=== PATIENT | female | born 1945 | race Caucasian/White ===

== ENCOUNTER → 2017-08-03 12:09 | Outpatient (CLI) | payer MEDICARE, OTHER, SELFPAY ==
[2017-08-03 14:37] LABS: ALB/GLOB Ratio 1.1 RATIO (0.9-2.4); AST(SGOT) 25 U/L (15-37); Alanine Aminotransfer ALT/SGPT 21 U/L (13-56); Albumin, Serum 3.8 g/dL (3.2-5.0); Alkaline Phosphatase 93 U/L (45-117); Anion Gap 8 (5-15); BUN 14 mg/dL (7-18); BUN/Creat Ratio 21.9 RATIO (10-20); Calcium,Total 8.9 mg/dL (8.5-10.1); Chloride 100 mmol/L (98-107); Creatinine, Serum 0.64 mg/dL (0.55-1.02); EST Glomerular Filtration Rate 97 mL/min (>60); Est Glom Filt Rate - Afr Amer 117 mL/min (>60); Globulin 3.5 g/dL (2.2-4.2); Glucose 84 mg/dL (74-106); Potassium 4.3 mmol/L (3.5-5.1); Protein, Total 7.3 g/dL (6.4-8.2); Sodium Level 137 mmol/L (136-145)
[2017-08-03 16:43] LABS: Absolute Neutrophil Count 3.3 X10^3/uL (2.0-7.7); Basophil# 0.09 X10^3/uL; Basophil% 1.8 % (0-1); Eosinophil# 0.16 X10^3/uL; Eosinophils% 3.2 % (0-5); Hematocrit 40.5 % (37-47); Mean Corp Hgb Conc 32.1 g/gl (32-36); Mean Corpuscular Hgb 31.4 pg (27.0-32.0); Mean Corpuscular Volume 97.8 fL (81-99); Mean Platelet Vol. 9.9 fl (6.2-12.0); Monocyte# 0.37 X10^3/uL; Monocyte% 7.4 % (0-10); Neutrophil # 3.27 X10^3/uL (2.7-7.7); Neutrophil % 65.6 % (47-70); Platelet Count 196 K/mm3 (150-450); RBC Distribution Width CV 13.9 % (11.6-14.6); RBC Distribution Width SD 49.9 fl (35.1-43.9); Red Blood Count 4.14 M/mm3 (4.2-5.4)
[2017-08-03 16:45] LABS: POSITIVE COUNT NO; POSITIVE DIFFERENTIAL NO; POSITIVE MORPHOLOGY NO
== END ==
PROVIDERS: Family Provider Family Medicine; PCP Family Medicine; Visit Provider Internal Medicine Rheumatology
DX: M06.4 Inflammatory polyarthropathy (principal); Z79.899 Other long term (current) drug therapy; M34.9 Systemic sclerosis, unspecified; M79.7 Fibromyalgia; K21.0 Gastro-esophageal reflux disease with esophagitis; I10 Essential (primary) hypertension; C50.911 Malignant neoplasm of unspecified site of right female breast
CPT/HCPCS: 36415; 80053; 85025

== ENCOUNTER → 2017-09-07 09:11 | Outpatient (CLI) | payer MEDICARE, OTHER, SELFPAY ==
--- NOTE | 2017-09-07 09:15 | RAD_ITS ---
STUDY: X-RAY CHEST REASON FOR EXAM: Female, 72 years old. Two-month history of cough. History of breast cancer and right mastectomy. TECHNIQUE: PA and lateral views of the chest. COMPARISON: None. FINDINGS: Prior right mastectomy. Hyperinflation. Scattered calcified granulomas. There is no demonstrated pleural abnormality. Normal size heart. Normal mediastinum and paul. Normal visualized pulmonary arteries. There is atherosclerotic tortuosity of the aortic arch and descending thoracic aorta. There are diffuse degenerative changes of the visualized thoracic spine. Scoliosis of the thoracolumbar junction. Normal visualized ribs, clavicles, and shoulders. Prior cholecystectomy. RAD/Chest PA and Lateral IMPRESSION: Hyperinflation. No acute abnormality is seen. Electronically Signed: Rick Fay MD at 14:02 EDT Tel [phone], Service support ,
== END ==
PROVIDERS: Family Provider Family Medicine; PCP Family Medicine; Visit Provider Family Medicine
DX: R05 Cough (principal)
CPT/HCPCS: 71046

== ENCOUNTER → 2017-10-20 12:59 | Outpatient (CLI) | payer MEDICARE, OTHER, SELFPAY ==
[2017-10-20 14:14] LABS: Absolute Neutrophil Count 3.9 X10^3/uL (2.0-7.7); Basophil# 0.13 X10^3/uL; Basophil% 2.2 % (0-1); Eosinophil# 0.13 X10^3/uL; Eosinophils% 2.2 % (0-5); Hematocrit 39.8 % (37-47); Lymphocyte % 21.9 % (19-41); Mean Corp Hgb Conc 32.7 g/gl (32-36); Mean Corpuscular Hgb 31.6 pg (27.0-32.0); Mean Corpuscular Volume 96.8 fL (81-99); Mean Platelet Vol. 9.6 fl (6.2-12.0); Monocyte# 0.46 X10^3/uL; Monocyte% 7.8 % (0-10); Neutrophil # 3.91 X10^3/uL (2.7-7.7); Neutrophil % 65.9 % (47-70); Platelet Count 212 K/mm3 (150-450); RBC Distribution Width CV 13.1 % (11.6-14.6); RBC Distribution Width SD 45.1 fl (35.1-43.9); Red Blood Count 4.11 M/mm3 (4.2-5.4); White Blood Count 5.9 K/mm3 (4.4-11.0)
[2017-10-20 14:18] LABS: POSITIVE COUNT NO; POSITIVE DIFFERENTIAL NO; POSITIVE MORPHOLOGY NO
[2017-10-20 14:42] LABS: BUN 9 mg/dL (7-18); Creatinine, Serum 0.58 mg/dL (0.55-1.02); Glucose 88 mg/dL (74-106)
[2017-10-20 14:43] LABS: ALB/GLOB Ratio 1.2 RATIO (0.9-2.4); AST(SGOT) 25 U/L (15-37); Alanine Aminotransfer ALT/SGPT 23 U/L (13-56); Alkaline Phosphatase 93 U/L (45-117); Anion Gap 8 (5-15); BUN/Creat Ratio 15.7 RATIO (10-20); Chloride 104 mmol/L (98-107); Cholesterol 210 mg/dL (200); EST Glomerular Filtration Rate 109 mL/min (>60); Est Glom Filt Rate - Afr Amer 132 mL/min (>60); Globulin 3.4 g/dL (2.2-4.2); High Density Lipoprotein 68 mg/dL; Potassium 3.8 mmol/L (3.5-5.1); Protein, Total 7.4 g/dL (6.4-8.2); Sodium Level 140 mmol/L (136-145); Thyroid Stim Hormone (TSH) 0.56 uIU/mL (0.358-3.74); Triglycerides 114 mg/dL; Very Low Density Lipoprotein 23 mg/dL (5-40)
[2017-10-21 08:21] LABS: Vitamin D,25 Hydroxy 57.8 ng/mL (29.95-100.01)
== END ==
PROVIDERS: Family Provider Family Medicine; PCP Family Medicine; Visit Provider Family Medicine
DX: I10 Essential (primary) hypertension (principal); M81.0 Age-related osteoporosis without current pathological fracture; R53.83 Other fatigue
CPT/HCPCS: 36415; 80053; 80061; 82306; 84443; 85025

== ENCOUNTER → 2017-12-12 10:56 | Outpatient (CLI) | payer MEDICARE, OTHER, SELFPAY ==
--- NOTE | 2017-12-12 10:59 | CT_ITS ---
STUDY: CT CHEST WITHOUT CONTRAST REASON FOR EXAM: Female, 72 years old. Wheezing, COPD. Pulmonary arterial hypertension. Scleroderma. RADIATION DOSAGE (If Supplied By Facility): CTDIvol = ( 8.15 ) mGy, DLP = ( 268.38 ) mGycm TECHNIQUE: Transaxial imaging was performed without the administration of intravenous contrast material. : Sagittal 2-D MPR. Individualized dose optimization techniques were used for this CT. COMPARISON: X-ray chest 09/07/2017. FINDINGS: Supraclavicular: Thyroid nodules on the right, the largest measuring approximately 1.2 cm, low density, favoring goiter but incompletely characterized. Ultrasound thyroid is recommended. Body wall soft tissues: Right mastectomy. No acute process. Osseous structures: No acute process. Mild scoliosis. Mild thoracic spondylosis. Upper abdomen: Limited evaluation, no acute process. Mediastinum: Normal esophagus. No mass or lymphadenopathy. Cardiovascular: Normal heart size without effusion and with no visible coronary calcifications. There are calcifications of the aortic valve annulus. The ascending aorta is mildly ectatic 3.5 cm, nonaneurysmal. The central pulmonary arteries are nondilated, main pulmonary artery 2.5 cm. Lungs: There is mild scarring and reticulation at the lung bases bilaterally. There are no suspicious pulmonary lesions and there is no evidence of acute pneumonia or pulmonary edema. No significant features of emphysema. There is mild generalized hyperlucency that could reflect mild COPD or excellent inspiratory effort. Normal airways. CT/Chest without Contrast IMPRESSION: Mild chronic interstitial changes of the lungs predominating at the lung bases, mild interstitial scar with reticulation of the interstitium and subpleural reticulation. No mariola fibrosis or bronchiectasis. There is no evidence of hyperlucency or asymmetric inflation of lungs to suggest acute air trapping. There are no features of emphysema. Mild hyperinflation of the lungs may reflect excellent inspiratory effort or mild COPD. No other acute cardiopulmonary process is evident. Electronically Signed: Otoniel Nelson, at 13:55 EDT Tel , Service support ,
[2017-12-12 11:23] VITALS: PULSE 102; PULSE 82; PULSE 94; PULSE 96; PULSE 97; PULSE 98; O2SAT 94; O2SAT 95; O2SAT 96; O2SAT 97; O2SAT 98
--- NOTE | 2017-12-12 13:28 | WT_ITS ---
PSN 6 Minute Walk Test - 6 Minute Walk Test 6 Minute Walk Test: 6 Minute Walk Test PSN:6-Minute Walk Test Start: 12/12/17 11: 22 Freq: Status: Active Protocol: [id number] Document 12/12/17 11:23 SMB (Rec: 12/12/17 11:25 SMB [id number]) 6 Minute Walk Test Date Performed 12/12/17 Time Performed 11:10 Height 5 ft 10 in Weight: 137 lb Weight in Pounds 137.[address]: Johnny Granados Assistive device used: None Pre-test Oxygen Delivery Method Room Air Pulse Ox (%) 95 Pulse Rate (60-100 beats/min) 82 Dyspnea Russel Scale (0-10) 0 Exertion Russel Scale (6-20) 11 1st minute Oxygen Delivery Method Room Air Pulse Ox (%) 98 Pulse Rate (60-100 beats/min) 96 2nd minute Oxygen Delivery Method Room Air Pulse Ox (%) 97 Pulse Rate (60-100 beats/min) 102 H 3rd minute Oxygen Delivery Method Room Air Pulse Ox (%) 97 Pulse Rate (60-100 beats/min) 98 4th minute Oxygen Delivery Method Room Air Pulse Ox (%) 94 Pulse Rate (60-100 beats/min) 94 5th minute Oxygen Delivery Method Room Air Pulse Ox (%) 94 Pulse Rate (60-100 beats/min) 98 6th minute Oxygen Delivery Method Room Air Pulse Ox (%) 96 Pulse Rate (60-100 beats/min) 97 Post-test Oxygen Delivery Method Room Air Pulse Ox (%) 95 Pulse Rate (60-100 beats/min) 82 Dyspnea Russel Scale (0-10) 0 Exertion Russel Scale (6-20) 11 Full Laps Walked 16 Partial Lap, Number of Tiles Walked 11 Total Distance Walked (ft) 955 - Interpretation Interpretation: The patient ambulated 955 feet over the course of 6 minutes beginning on room air without assistive devices or breaks. Pretesting oxygen saturation was noted to be 95% on room air. With ambulation, the brunilda oxygen saturation was 94%. There was no significant exertional oxygen desaturation noted. - Recommendations Recommendations: There is no indication for the use of supplemental oxygen at this time.
== END ==
PROVIDERS: Family Provider Family Medicine; PCP Family Medicine; Visit Provider Internal Medicine Critical Care Medicine
DX: I27.20 Pulmonary hypertension, unspecified (principal); R06.02 Shortness of breath; M34.9 Systemic sclerosis, unspecified
CPT/HCPCS: 71250; 94618

== ENCOUNTER → 2017-12-22 10:02 | Outpatient (CLI) | payer MEDICARE, OTHER, SELFPAY ==
--- NOTE | 2017-12-22 13:47 | PFTCOMP ---
COMPLETE PULMONARY FUNCTION TEST INTERPRETATION Brief HPI: Patient is a 72 year old female, currently under the care of myself, who presents to [facility] for complete pulmonary function tests secondary to diagnosis of dyspnea. Respiratory therapist reports good effort and reproducible results. Interpretation: Forced expiration spirometry shows no large airways obstructive ventilatory defect with an FEV1 of 73% predicted. There is no significant bronchodilator response by ATS criteria. Spirograms are of good quality and plateau normally. The respiratory flow volume loop shows a normal pattern. Lung volumes by body plethysmography show a decreased total lung capacity at 4.96 L, 83% predicted. All other lung volumes are reduced symmetrically. Diffusion capacity by carbon monoxide is at the lower limit of normal at 67% predicted. The airway resistance is elevated. No previous pulmonary function tests were available for review. Impression: Mild restrictive ventilatory defect with a symmetric reduction diffusing capacity
== END ==
PROVIDERS: Family Provider Family Medicine; PCP Family Medicine; Visit Provider Internal Medicine Critical Care Medicine
DX: R06.02 Shortness of breath (principal); M34.9 Systemic sclerosis, unspecified
CPT/HCPCS: 94060; 94726; 94729

== ENCOUNTER 2017-12-30 11:38 | Emergency (ER) | payer MEDICARE, OTHER, SELFPAY ==
[2017-12-30 11:39] VITALS: BP 152/83; PULSE 85; RESP 16; TEMP 36.8; O2SAT 94; BMI 20.1
--- NOTE | 2017-12-30 11:46 | NURSING ---
NO LW OR POA
--- NOTE | 2017-12-30 12:10 | RAD_ITS ---
STUDY: X-RAY - PELVIS AND LEFT HIP REASON FOR EXAM: Female, 72 years old. Hip pain following a fall. TECHNIQUE: Radiological exam, hip, unilateral, with pelvis when performed; 2 or 3 views. COMPARISON: None. FINDINGS: There is a non-specific bowel gas pattern. There are multiple calcified phleboliths. Normal bilateral iliac wings, sacroiliac joints and visualized sacrum. Normal bilateral superior and inferior pubic rami. There are degenerative changes of the pubic symphysis with articular narrowing and sclerosis. Normal bilateral ischial tuberosities. Normal visualized femoral head. There is osteoarthritic spur formation of the acetabular rim. There is moderate articular joint space narrowing of the hip. This space narrowing in the lower lumbar spine with dextroscoliosis. RAD/Hip 2-3 Views with Pelvis IMPRESSION: Degenerative changes of the hip joint. No fracture or dislocation is seen. Electronically Signed: Rick Fay MD at 12:34 EDT Tel [phone], Service support ,
--- NOTE | 2017-12-30 12:10 | NURSING ---
NO LW OR POA
--- NOTE | 2017-12-30 12:26 | ED.VISSUMM ---
- ER Visit Summary Date of Service: 12/30/17 Chief Complaint: Fall History of Present Illness: The patient is a 72 F who states she lost her balance and fell in her kitchen last evening striking her left hip. She is able to get herself up rather quickly. She states pain has been improved with ibuprofen but she still has pain with weightbearing. She denies striking her head but does note a small contusion on her forehead this morning. She denies headache. She is not on anticoagulants. Physical Examination: Vital signs significant for a blood pressure of 152/83, otherwise unremarkable. Patient sitting upright in bed in no acute distress. Head neck examination with a small hematoma over the right upper forehead. She has no C-spine tenderness. Heart is regular rate and rhythm. Lung sounds are clear. Abdomen is soft nontender. Lower extremity examination was tenderness palpation over the greater trochanter of the left hip. She has full range of motion. She has normal distal pulses. Test Results: Left hip and pelvis x-rays are obtained and reveal degenerative changes with no fracture or dislocation. Emergency Department Course and Treatment: Test results were discussed with the patient. She will continue anti-inflammatories. Treatment Plan: [] Disposition: Discharge Impression: Left hip contusion status post fall This note was generated with [employer] dictation software. It may contain incorrect words, spelling, and punctuation that were not noted in review of the chart prior to signing ED Disposition - Plan for ED Patient: Chief Complaint: Fall Referrals: Jack Lindo DO [Primary Care Provider] -
--- NOTE | 2017-12-30 12:37 | ED.DEP ---
ED Disposition - Plan for ED Patient: Disposition: Home or Assisted Living Chief Complaint: Fall Instructions: ED Contusion Hip Referrals: Jack Lindo DO [Primary Care Provider] - 1 Week if not improving
[2017-12-30 12:54] VITALS: PULSE 75
== END 2017-12-30 12:55 | disposition home or self-care (01) ==
PROVIDERS: Emergency Provider Emergency Medicine; Family Provider Family Medicine; PCP Family Medicine
DX: S70.02XA Contusion of left hip, initial encounter (principal); W18.39XA Other fall on same level, initial encounter; Y93.9 Activity, unspecified; Y92.000 Kitchen of unspecified non-institutional (private) residence as the place of occurrence of the external cause; I10 Essential (primary) hypertension; J43.9 Emphysema, unspecified; Z85.3 Personal history of malignant neoplasm of breast; Z90.11 Acquired absence of right breast and nipple; Z79.82 Long term (current) use of aspirin; Z79.899 Other long term (current) drug therapy; Z87.891 Personal history of nicotine dependence
CPT/HCPCS: 73502; 99282

== ENCOUNTER → 2018-01-09 10:58 | Outpatient (CLI) | payer MEDICARE, OTHER, SELFPAY ==
--- NOTE | 2018-01-09 11:01 | US_ITS ---
STUDY: THYROID ULTRASOUND REASON FOR EXAM: Female, 72 years old. Nodules. TECHNIQUE: Ultrasound evaluation of the thyroid was performed with real-time and static simon-scale imaging. COMPARISON: CT chest/thorax December 12, 2017. FINDINGS: RIGHT LOBE: The right lobe of the thyroid gland measures 4.8 x 1.9 x 2.0 cm. There is a active. There are multiple nodular lesions, most of which are solid. The largest is in the lower pole, and contains sites of cystic degenerative change, correlating to the area of abnormality best seen on the CT. This measures 1.9 x 1.6 x 1.9 cm. LEFT LOBE: The left lobe of the thyroid gland measures 4.2 x 1.2 x 1.1 cm. There is a homogeneous echotexture. There are several incompletely defined nodular lesions, most of which are solid. The largest is in the lower pole measuring 9 x 7 x 9 mm. This shows a small eccentric area of cystic degenerative change. ISTHMUS: The isthmus measures 2.0 mm. The regional lymph nodes are normal. US/Thyroid IMPRESSION: Multiple bilateral thyroid nodules, consistent with a multinodular goiter. If there is clinical suspicion of other pathology, the largest of these lesions would be amenable to ultrasound-guided needle biopsy. Electronically Signed: Anthony Ferguson MD at 19:58 EDT , Service support ,
[2018-01-09 13:52] LABS: Absolute Lymphocyte Count 1.05 X10^3/ul (0.83-4.51); Absolute Neutrophil Count 4.6 X10^3/uL (2.0-7.7); Basophil# 0.11 X10^3/uL; Basophil% 1.7 % (0-1); Eosinophil# 0.18 X10^3/uL; Eosinophils% 2.8 % (0-5); Hematocrit 37.9 % (37-47); Hemoglobin 12.3 g/dl (12.0-15.0); Lymphocyte # 1.05 X10^3/ul (4.0); Lymphocyte % 16.3 % (19-41); Mean Corp Hgb Conc 32.5 g/gl (32-36); Mean Corpuscular Hgb 31.8 pg (27.0-32.0); Mean Corpuscular Volume 97.9 fL (81-99); Mean Platelet Vol. 9.6 fl (6.2-12.0); Monocyte# 0.52 X10^3/uL; Monocyte% 8.1 % (0-10); Neutrophil # 4.57 X10^3/uL (2.7-7.7); Neutrophil % 70.9 % (47-70); Platelet Count 252 K/mm3 (150-450); RBC Distribution Width CV 13.4 % (11.6-14.6); RBC Distribution Width SD 46.6 fl (35.1-43.9); Red Blood Count 3.87 M/mm3 (4.2-5.4); White Blood Count 6.4 K/mm3 (4.4-11.0)
[2018-01-09 13:59] LABS: ALB/GLOB Ratio 1.1 RATIO (0.9-2.4); AST(SGOT) 24 U/L (15-37); Alanine Aminotransfer ALT/SGPT 19 U/L (13-56); Albumin, Serum 3.8 g/dL (3.2-5.0); Alkaline Phosphatase 123 U/L (45-117); Anion Gap 7 (5-15); BUN 8 mg/dL (7-18); BUN/Creat Ratio 11.9 RATIO (10-20); Calcium,Total 8.9 mg/dL (8.5-10.1); Chloride 103 mmol/L (98-107); Creatinine, Serum 0.67 mg/dL (0.55-1.02); EST Glomerular Filtration Rate 91 mL/min (>60); Est Glom Filt Rate - Afr Amer 110 mL/min (>60); Globulin 3.6 g/dL (2.2-4.2); Glucose 101 mg/dL (74-106); Potassium 3.9 mmol/L (3.5-5.1); Protein, Total 7.4 g/dL (6.4-8.2); Sodium Level 137 mmol/L (136-145)
[2018-01-09 14:09] LABS: POSITIVE COUNT NO; POSITIVE DIFFERENTIAL NO; POSITIVE MORPHOLOGY NO
== END ==
PROVIDERS: Internal Medicine Rheumatology; Family Provider Family Medicine; PCP Family Medicine; Visit Provider Family Medicine
DX: E04.1 Nontoxic single thyroid nodule (principal); M06.4 Inflammatory polyarthropathy; Z79.899 Other long term (current) drug therapy; M34.9 Systemic sclerosis, unspecified; M79.7 Fibromyalgia; K21.0 Gastro-esophageal reflux disease with esophagitis; I10 Essential (primary) hypertension; C50.911 Malignant neoplasm of unspecified site of right female breast
CPT/HCPCS: 36415; 76536; 80053; 85025

== ENCOUNTER → 2018-04-26 11:31 | Outpatient (CLI) | payer MEDICARE, OTHER, SELFPAY ==
[2018-04-26 14:38] LABS: Absolute Lymphocyte Count 1.33 X10^3/ul (0.83-4.51); Absolute Neutrophil Count 3.5 X10^3/uL (2.0-7.7); Basophil# 0.08 X10^3/uL; Basophil% 1.5 % (0-1); Eosinophil# 0.15 X10^3/uL; Eosinophils% 2.8 % (0-5); Hematocrit 41.1 % (37-47); Hemoglobin 13.1 g/dl (12.0-15.0); Lymphocyte # 1.33 X10^3/ul (4.0); Lymphocyte % 24.8 % (19-41); Mean Corp Hgb Conc 31.9 g/gl (32-36); Mean Corpuscular Hgb 31.1 pg (27.0-32.0); Mean Corpuscular Volume 97.6 fL (81-99); Mean Platelet Vol. 9.8 fl (6.2-12.0); Monocyte# 0.29 X10^3/uL; Monocyte% 5.4 % (0-10); Neutrophil # 3.52 X10^3/uL (2.7-7.7); Neutrophil % 65.5 % (47-70); Platelet Count 209 K/mm3 (150-450); RBC Distribution Width CV 14.2 % (11.6-14.6); RBC Distribution Width SD 50.5 fl (35.1-43.9); Red Blood Count 4.21 M/mm3 (4.2-5.4); White Blood Count 5.4 K/mm3 (4.4-11.0)
[2018-04-26 14:39] LABS: POSITIVE COUNT NO; POSITIVE DIFFERENTIAL NO; POSITIVE MORPHOLOGY NO
[2018-04-26 15:09] LABS: ALB/GLOB Ratio 1.1 RATIO (0.9-2.4); AST(SGOT) 23 U/L (15-37); Alanine Aminotransfer ALT/SGPT 23 U/L (13-56); Alkaline Phosphatase 101 U/L (45-117); Anion Gap 8 (5-15); BUN 16 mg/dL (7-18); BUN/Creat Ratio 26.4 RATIO (10-20); Calcium,Total 9.1 mg/dL (8.5-10.1); Chloride 102 mmol/L (98-107); Creatinine, Serum 0.61 mg/dL (0.55-1.02); EST Glomerular Filtration Rate 103 mL/min (>60); Est Glom Filt Rate - Afr Amer 124 mL/min (>60); Globulin 3.6 g/dL (2.2-4.2); Glucose 98 mg/dL (74-106); Potassium 4.5 mmol/L (3.5-5.1); Protein, Total 7.6 g/dL (6.4-8.2); Sodium Level 140 mmol/L (136-145)
== END ==
PROVIDERS: Family Provider Family Medicine; PCP Family Medicine; Referring Provider Internal Medicine Rheumatology; Visit Provider Internal Medicine Rheumatology
DX: M06.4 Inflammatory polyarthropathy (principal); Z79.899 Other long term (current) drug therapy; M34.9 Systemic sclerosis, unspecified; M79.7 Fibromyalgia; K21.0 Gastro-esophageal reflux disease with esophagitis; I10 Essential (primary) hypertension; C50.911 Malignant neoplasm of unspecified site of right female breast
CPT/HCPCS: 36415; 80053; 85025

== ENCOUNTER → 2018-07-18 13:45 | Outpatient (CLI) | payer MEDICARE, OTHER, SELFPAY ==
[2018-07-18 15:39] LABS: Absolute Lymphocyte Count 1.18 X10^3/ul (0.83-4.51); Absolute Neutrophil Count 5.3 X10^3/uL (2.0-7.7); Basophil# 0.07 X10^3/uL; Eosinophil# 0.14 X10^3/uL; Eosinophils% 1.9 % (0-5); Hematocrit 42.1 % (37-47); Hemoglobin 13.4 g/dl (12.0-15.0); Lymphocyte # 1.18 X10^3/ul (4.0); Lymphocyte % 16.3 % (19-41); Mean Corp Hgb Conc 31.8 g/gl (32-36); Mean Corpuscular Hgb 32.5 pg (27.0-32.0); Mean Corpuscular Volume 102.2 fL (81-99); Mean Platelet Vol. 9.9 fl (6.2-12.0); Monocyte# 0.53 X10^3/uL; Monocyte% 7.3 % (0-10); Neutrophil # 5.31 X10^3/uL (2.7-7.7); Neutrophil % 73.4 % (47-70); Platelet Count 246 K/mm3 (150-450); RBC Distribution Width CV 13.3 % (11.6-14.6); RBC Distribution Width SD 48.9 fl (35.1-43.9); Red Blood Count 4.12 M/mm3 (4.2-5.4); White Blood Count 7.2 K/mm3 (4.4-11.0)
[2018-07-18 15:48] LABS: POSITIVE COUNT NO; POSITIVE DIFFERENTIAL NO; POSITIVE MORPHOLOGY NO
[2018-07-18 15:51] LABS: ALB/GLOB Ratio 1.1 RATIO (0.9-2.4); AST(SGOT) 33 U/L (15-37); Alanine Aminotransfer ALT/SGPT 26 U/L (13-56); Albumin, Serum 4.2 g/dL (3.2-5.0); Alkaline Phosphatase 106 U/L (45-117); Anion Gap 10 (5-15); BUN 15 mg/dL (7-18); BUN/Creat Ratio 16.8 RATIO (10-20); Calcium,Total 9.4 mg/dL (8.5-10.1); Chloride 103 mmol/L (98-107); Creatinine, Serum 0.89 mg/dL (0.55-1.02); EST Glomerular Filtration Rate 66 mL/min (>60); Est Glom Filt Rate - Afr Amer 79 mL/min (>60); Globulin 3.7 g/dL (2.2-4.2); Glucose 90 mg/dL (74-106); Potassium 4.4 mmol/L (3.5-5.1); Protein, Total 7.9 g/dL (6.4-8.2); Sodium Level 140 mmol/L (136-145)
--- OUTSIDE RECORDS SUMMARY | 2018-09-19 18:41 | XMS RPT_ITS ---
:1945 Author Organization OHIP Support Name Relationship Address Phone OXENRIDER LORA Unavailable Unavailable + [place] [address] R Unavailable Unavailable Unavailable ERUM DAVIS Unavailable Unavailable + [place], [place] Oxenrider, Lora Unavailable Unavailable + Eric Erum Unavailable Unavailable + OXENRIDER, LORA Unavailable Unavailable + [place] [address] R Unavailable Unavailable Unavailable SUSAN ERUM Unavailable Unavailable + [place], [place] MCCULLOUGH, WILL Unavailable [address] + [place] [address] OXENRIDER, LORA Unavailable . + [place] [address] R Unavailable Unavailable Unavailable MCCULLOUGH, WILL Unavailable [address] + [place] [address] OXENRIDER, LORA Unavailable Unavailable + [place] [address] R Unavailable Unavailable Unavailable MCCULLOUGH, WILL Unavailable [address] + [place] [address] OXENRIDER, LORA Unavailable Unavailable + [place] [address] R Unavailable Unavailable Unavailable Mccullough, Will Unavailable Unavailable + Wevanessa Erum Unavailable Unavailable + MCCULLOUGH, WILL Unavailable [address] + [place] [address] OXENRIDER, LORA Unavailable Unavailable + [place] [address] R Unavailable Unavailable Unavailable MCCULLOUGH, WILL Unavailable [address] + [place] [address] OXENRIDER, LORA Unavailable . + [place] [address] R Unavailable Unavailable Unavailable MCCULLOUGH, WILL Unavailable [address] + [place] [address] Oxenrider, Lora Unavailable Unavailable + [place] [address] R Unavailable Unavailable Unavailable MCCULLOUGH, WILL Unavailable [address] + [place] [address] OXENRIDER, LORA Unavailable Unavailable + [place] [address] R Unavailable Unavailable Unavailable MCCULLOUGH, WILL Unavailable [address] + [place] [address] R Unavailable Unavailable Unavailable MCCULLOUGH, WILL Unavailable [address] + [place] [address] R Unavailable Unavailable Unavailable MCCULLOUGH, WILL Unavailable [address] + [place] [address] R Unavailable Unavailable Unavailable MCCULLOUGH, WILL Unavailable [address] + [place] [address] R Unavailable Unavailable Unavailable Care Team Providers Name Role Phone Curtis Barrera Attending Unavailable PROVIDER, UNKNOWN Referring Unavailable Guicho, Jack Primary Care Unavailable Vellanki, Katia Attending Unavailable PROVIDER, UNKNOWN Referring Unavailable Guicho, Jack Primary Care Unavailable Vellanki, Katia Attending Unavailable Vellanki, Katia Referring Unavailable Guicho, Jack Primary Care Unavailable Vellanki, Katia Attending Unavailable Vellanki, Katia Referring Unavailable Guicho, Jack Primary Care Unavailable Guicho, Jack Attending Unavailable Guicho, Jack Primary Care Unavailable Guicho, Jack Attending Unavailable Guicho, Jack Primary Care Unavailable Vellanki, Katia Referring Unavailable Johnny Granados Attending Unavailable Guicho, Jack Referring Unavailable DarwinJohnny Attending Unavailable DarwinJohnny Referring Unavailable Guicho, Jack Primary Care Unavailable Johnny Granados Attending Unavailable DarwinJohnny banda Referring Unavailable Guicho, Jack Primary Care Unavailable Guicho, Jack Primary Care Unavailable Adriana Joyce Attending Unavailable Guicho, Jack Attending Unavailable Guicho, Jack Primary Care Unavailable Guicho, Jack Referring Unavailable Vellanki, Katia Consulting Unavailable Johnny Granados Attending Unavailable DarwinJohnny banda Referring Unavailable DarwinJohnny banda Attending Unavailable DarwinJohnny banda Attending Unavailable Guicho, Jack Referring Unavailable Vellanki, Katia Attending Unavailable Vellanki, Katia Referring Unavailable Guicho, Jack Primary Care Unavailable PROBLEMS PROBLEMS DATE TYPE CONDITION / CODE ATTENDING STATUS SOURCE 05/08/2018 Admitting Pulmonary Elpidio Active [facility] Diagnosis hypertension, Katia System unspecified / Repository I27.20(ICD-10) 04/26/2018 Unknown 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, 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 / [place] Community M06.4(ICD-10) Hospital Repository 01/25/2018 Unknown M34.9 - Systemic DarwinJohnny banda Active [place] sclerosis, Community unspecified / Hospital M34.9(ICD-10) Repository 01/25/2018 Unknown I27.20 - Pulmonary Darwin, Johnny Active [facility] hypertension, Community unspecified / Hospital I27.20(ICD-10) Repository 12/27/2017 Admitting Encntdenae huan Bruce Curtis Active [facility] Diagnosis mammogram for System malignant neoplasm Repository of breast / Z12.31(ICD-10) 01/24/2018 Unknown R06.02 - Shortness DarwinJohnny banda Active [facility] of breath / Community R06.02(ICD-10) Hospital Repository 10/20/2017 Unknown I10 - Essential Jack Lindo Active [place] (primary) Community hypertension / Hospital I10(ICD-10) Repository 10/20/2017 Unknown M81.0 - Age-related Jack Lindo Active [place] osteoporosis without Community current pathological Hospital fracture / Repository M81.0(ICD-10) 10/20/2017 Unknown R53.83 - Other Jack Lindo Active [facility] fatigue / Community R53.83(ICD-10) Hospital Repository 09/07/2017 Unknown R05 - Cough / Jack Lindo Active [facility] R05(ICD-10) [facility] Repository 08/03/2017 Unknown Z79.899 - Other long Elpidio, Active [place] term (current) drug [facility] therapy / Hospital Z79.899(ICD-10) Repository 08/03/2017 Unknown M79.7 - Fibromyalgia Vellandennis, Active [place] / M79.7(ICD-10) [facility] Hospital Repository 08/03/2017 Unknown K21.0 - Vellandennis, Active [facility] Gastro-esophageal [facility] reflux disease with Hospital esophagitis / Repository K21.0(ICD-10) 08/03/2017 Unknown C50.911 - Malignant Vellanki, Active [place] neoplasm of [facility] unspecified site of Hospital right female breast Repository / C50.911(ICD-10) PROCEDURES PROCEDURES No Procedure Records FoundRESULTS RESULTS CBC W/DIFF, AUTOMATED Collected: 07/18/2018 Status: F Source: [place] 1:53 PM [facility] REPOSITORY TYPE CODE TESTS RESULT OUT OF RANGE REFERENCE UNITS LAB L100.1000 4.4-11.0 K/mm3 Normal WBC 7.2 LAB L100.1200 4.2-5.4 M/mm3 Low RBC 4.12 LAB L100.1300 12.0-15.0 g/dl Normal HGB 13.4 LAB L100.1400 37-47 % Normal HCT 42.1 LAB L100.1500 81-99 fL High MCV 102.2 LAB L100.1600 27.0-32.0 pg High MCH 32.5 LAB L100.1700 32-36 g/gl Low MCHC 31.8 LAB L100.1810 11.6-14.6 % Normal RDW CV 13.3 LAB L100.1820 35.1-43.9 fl High RDW SD 48.9 LAB L100.1900 150-450 K/mm3 Normal PLT 246 LAB L100.2000 6.2-12.0 fl Normal MPV 9.9 LAB L100.2100 47-70 % High NEUT% 73.4 LAB L100.2200 19-41 % Low LY% 16.3 LAB L100.2300 0-10 % Normal MONO% 7.3 LAB L100.2400 0-5 % Normal EO% 1.9 LAB L100.2500 0-1 % Normal BASO% 1.0 LAB L100.2550 0.0-0.9 % Normal IM GRAN % 0.100 Result Comment: IG% - Immature Granulocytes (promyelocytes, myelocytes and metamyelocytes) > 1% indicates that a LEFT SHIFT is Present. LAB L100.2620 2.0-7.7 X10 3/uL Normal Absolute Neut 5.3 LAB L100.2720 0.83-4.51 X10 3/ul Normal Absolute Lymph 1.18 Performed By: #### L100.0100 #### [facility] [address] [place], [address] COMPREHENSIVE METABOLIC Collected: 07/18/2018 Status: F Source: [place]IL 1:53 PM [facility] REPOSITORY TYPE CODE TESTS RESULT OUT OF RANGE REFERENCE UNITS LAB L501.0100 74-106 mg/dL Normal GLU 90 Result Comment: Please note revised GLUCOSE reference range effective 2017. LAB L501.1000 7-18 mg/dL Normal BUN 15 LAB L501.1100 0.55-1.02 mg/dL Normal CREAT,SERUM 0.89 Result Comment: The validity of the calculated GFR AND GFRAA in patients over 70 years has not been determined. Clinical correlation is essential. LAB L501.1110 >60 mL/min Normal EST GFR 66 Result Comment: Non- GFR Calc LAB L501.1115 >60 mL/min Normal EST GFR - AA 79 Result Comment: GFR Calc LAB L501.1300 10-20 RATIO Normal BUN/CRE 16.8 LAB L501.1500 6.4-8.2 g/dL T Normal PROT 7.9 LAB L501.1800 3.2-5.0 g/dL Normal ALB 4.2 LAB L501.1950 2.2-4.2 g/dL Normal GLOB 3.7 LAB L501.2000 0.9-2.4 RATIO Normal A/G 1.1 LAB L501.2200 8.5-10.1 mg/dL CA Normal 9.4 LAB L501.4100 15-37 U/L Normal AST 33 LAB L501.4305 45-117 U/L Normal ALK P 106 LAB L501.4405 13-56 U/L Normal ALT 26 LAB L501.4600 0.20-1.00 mg/dL T Normal BILI 0.50 LAB L501.5300 136-145 mmol/L NA Normal 140 LAB L501.5600 3.5-5.1 mmol/L K Normal 4.4 LAB L501.5900 98-107 mmol/L CL Normal 103 LAB L501.6100 21.0-32.0 mmol/L Normal CO2 27.0 LAB L501.6200 5-15 Normal GAP 10 Performed By: #### L500.4050 #### [facility] [address] [place] [place], [address] ECHO COMPLETE W/WO Observed: 05/08/2018 Status: F Source: [place] CONTRAST 1:24 PM SYSTEM REPOSITORY Patient Name: RAJ REYES Ultrasound Exam Date/Time 05/08/2018 15:07:20 EST Exam Echo Complete w/wo Contrast Ordering Physician MD ELPIDIO, KATIA Accession Number [id number] Reason For Exam PHTN systemic sclerosis Report TRANSTHORACIC ECHOCARDIOGRAM PATIENT: Raj Reyes STUDY DATE: 05/08/2018 : 1945 AGE: 73 HT/WT: 177.8 cm (70 61.2 kg in) (134.7 lb) GENDER: F BP: 115 / 72 LOCATION: [facility] PATIENT Outpatient [facility] STATUS: Center *ORDERING PHYSICIAN: * Katia Magallanes *READING PHYSICIAN: * Jose Pettit, *BRANCH COORDINATOR: * Tina Best RDCS, MD AE --- INDICATIONS: Pulmonary hypertension, systemic sclerosis I 27.2. --- CONCLUSIONS SUMMARY: 1. Left ventricle: Systolic function is normal by the biplane method of disks. The estimated ejection fraction is 59%. Left ventricular diastolic function parameters are normal for the patient's age. 2. Pulmonary arteries: Systolic pressure is mildly increased, estimated to be 40 mm Hg. --- STUDY DATA: Complete transthoracic echocardiogram. Procedure: Image quality was good. M-mode, complete 2D, complete spectral Doppler, and color flow Doppler images were acquired and archived for permanent storage and are available for subsequent review. Study status: Routine. Patient status: Outpatient. --- FINDINGS LEFT VENTRICLE: Average LV Global Longitudinal Strain is -20 The cavity size is normal. Wall thickness is normal. Systolic function is normal by the biplane method of disks. The estimated ejection fraction is 59%. There are no regional wall motion abnormalities. Left ventricular diastolic function parameters are normal for the patient's age. RIGHT VENTRICLE: The cavity size is normal. Wall thickness is normal. Systolic function is normal. Right ventricular systolic pressure is mildly increased. VENTRICULAR SEPTUM: There is no evidence of a ventricular septal defect. There is no evidence of a ventricular septal defect. LEFT ATRIUM: The atrium is normal in size. RIGHT ATRIUM: The atrium is normal in size. ATRIAL SEPTUM: Color Doppler shows no evidence of shunt. Color Doppler shows no evidence of shunt. MITRAL VALVE: Structurally normal valve. Doppler: There is no regurgitation. AORTIC VALVE: Structurally normal valve. Trileaflet. Doppler: There is no regurgitation. TRICUSPID VALVE: Structurally normal valve. Doppler: There is moderate, 2+ regurgitation. PULMONIC VALVE: Structurally normal valve. Doppler: There is trivial, less than 1+ regurgitation. AORTA: The aorta is normal. PULMONARY ARTERY: Systolic pressure is mildly increased, estimated to be 40 mm Hg. Main pulmonary artery: Normal. Normal. PERICARDIUM: There is no pericardial effusion. SYSTEMIC VEINS: Inferior vena cava: The vessel is normal. The IVC collapses by greater than 50% with inspiration. --- Measurements Left ventricle Value 06/13/2017 Reference Longitudinal strain, 2D 20.53 % 20.61 --------- LV ID, ED (L) 3.7 cm 3.6 3.9 - 5.3 LV ID, ES 2.1 cm 2.3 --------- LV PW thickness, ED 0.8 cm 1.1 0.6 - 0.9 LV end-diastolic volume, 1-p A4C (L) 38 ml 48 56 - 104 LV end-systolic volume, 1-p A4C (L) 16 ml 13 19 - 49 LV ejection fraction, 2-p 59 % >=55 Ventricular septum Value 06/13/2017 Reference IVS thickness, ED (H) 1.1 cm 1.0 0.6 - 0.9 LVOT Value 06/13/2017 Reference LVOT ID, A-P 1.6 cm 2.1 --------- LVOT mean velocity, S 0.6 m/sec 0.7 --------- LVOT VTI, S 18.9 cm 21.0 --------- LVOT peak gradient, S 3 mm Hg 5 --------- Stroke volume (SV), LVOT DP 38 ml 72 --------- Stroke index (SV/bsa), LVOT DP 22 ml/m2 41 --------- Aorta Value 06/13/2017 Reference Aortic root ID 2.8 cm <3.9 Aortic root ID, STJ, ED 2.6 cm --------- Ascending aorta ID, A-P 2.5 cm --------- Left atrium Value 06/13/2017 Reference LA volume/bsa, ES, 2-p 19 ml/m2 22 --------- Mitral valve Value 06/13/2017 Reference Mitral E-wave peak velocity 0.6 m/sec 0.6 --------- Mitral A-wave peak velocity 0.7 m/sec 0.7 --------- Mitral deceleration time 224 ms 162 --------- Mitral E/A ratio, peak 0.8 0.9 --------- Pulmonary arteries Value 06/13/2017 Reference PA pressure, S, DP 34 mm Hg --------- Tricuspid valve Value 06/13/2017 Reference Tricuspid regurg peak velocity 2.8 m/sec --------- Tricuspid peak RV-RA gradient 31 mm Hg 27 --------- Right atrium Value 06/13/2017 Reference RA area, ES, A4C 12 cm2 8 Systemic veins Value 06/13/2017 Reference Estimated RAP 3 mm Hg --------- Right ventricle Value 06/13/2017 Reference RV ID, minor axis, ED, A4C base (L) 2.1 cm 2.4 - 4.2 RV ID, minor axis, ED, A4C mid (L) 1.0 cm 2.0 - 3.5 TAPSE 1.6 cm 1.8 --------- RV pressure, S, DP 34 mm Hg --------- Legend: (L) and (H) jack values outside specified reference range. Electronically signed by Jose Pettit MD 05/08/2018 17:10 Final Dictated: 05/08/2018 5:11 pm Dictating Physician: JOSE PETTIT Signed Date and Time: 05/08/2018 5:10 pm Signed by: JOSE PETTIT CBC W/DIFF, AUTOMATED Collected: 04/26/2018 Status: F Source: [place] 11:54 AM [facility] REPOSITORY TYPE CODE TESTS RESULT OUT OF RANGE REFERENCE UNITS LAB L100.1000 4.4-11.0 K/mm3 Normal WBC 5.4 LAB L100.1200 4.2-5.4 M/mm3 Normal RBC 4.21 LAB L100.1300 12.0-15.0 g/dl Normal HGB 13.1 LAB L100.1400 37-47 % Normal HCT 41.1 LAB L100.1500 81-99 fL Normal MCV 97.6 LAB L100.1600 27.0-32.0 pg Normal MCH 31.1 LAB L100.1700 32-36 g/gl Low MCHC 31.9 LAB L100.1810 11.6-14.6 % Normal RDW CV 14.2 LAB L100.1820 35.1-43.9 fl High RDW SD 50.5 LAB L100.1900 150-450 K/mm3 Normal PLT 209 LAB L100.2000 6.2-12.0 fl Normal MPV 9.8 LAB L100.2100 47-70 % Normal NEUT% 65.5 LAB L100.2200 19-41 % Normal LY% 24.8 LAB L100.2300 0-10 % Normal MONO% 5.4 LAB L100.2400 0-5 % Normal EO% 2.8 LAB L100.2500 0-1 % High BASO% 1.5 LAB L100.2550 0.0-0.9 % Normal IM GRAN % 0.000 Result Comment: IG% - Immature Granulocytes (promyelocytes, myelocytes and metamyelocytes) > 1% indicates that a LEFT SHIFT is Present. LAB L100.2620 2.0-7.7 X10 3/uL Normal Absolute Neut 3.5 LAB L100.2720 0.83-4.51 X10 3/ul Normal Absolute Lymph 1.33 Performed By: #### L100.0100 #### [facility] [address] [place], [place], [id number] COMPREHENSIVE METABOLIC Collected: 04/26/2018 Status: F Source: [facility] 11:54 AM [facility] REPOSITORY TYPE CODE TESTS RESULT OUT OF RANGE REFERENCE UNITS LAB L501.0100 74-106 mg/dL Normal GLU 98 Result Comment: Please note revised GLUCOSE reference range effective 2017. LAB L501.1000 7-18 mg/dL Normal BUN 16 LAB L501.1100 0.55-1.02 mg/dL Normal CREAT,SERUM 0.61 Result Comment: The validity of the calculated GFR AND GFRAA in patients over 70 years has not been determined. Clinical correlation is essential. LAB L501.1110 >60 mL/min Normal EST GFR 103 Result Comment: Non- GFR Calc LAB L501.1115 >60 mL/min Normal EST GFR - AA 124 Result Comment: GFR Calc LAB L501.1300 10-20 RATIO High BUN/CRE 26.4 LAB L501.1500 6.4-8.2 g/dL T Normal PROT 7.6 LAB L501.1800 3.2-5.0 g/dL Normal ALB 4.0 LAB L501.1950 2.2-4.2 g/dL Normal GLOB 3.6 LAB L501.2000 0.9-2.4 RATIO Normal A/G 1.1 LAB L501.2200 8.5-10.1 mg/dL CA Normal 9.1 LAB L501.4100 15-37 U/L Normal AST 23 LAB L501.4305 45-117 U/L Normal ALK P 101 LAB L501.4405 13-56 U/L Normal ALT 23 LAB L501.4600 0.20-1.00 mg/dL T Normal BILI 0.60 LAB L501.5300 136-145 mmol/L NA Normal 140 LAB L501.5600 3.5-5.1 mmol/L K Normal 4.5 LAB L501.5900 98-107 mmol/L CL Normal 102 LAB L501.6100 21.0-32.0 mmol/L Normal CO2 30.0 LAB L501.6200 5-15 Normal GAP 8 Performed By: #### L500.4050 #### [facility] [address] [place], [address] PULMONARY VISIT REPORT Observed: 01/25/2018 Status: F Source: [place] 3:49 PM [facility] REPOSITORY Pulmonary Medicine of [address] [place] [address] OFFICE VISIT Date of Service: 01/25/18 MR#: [id number] Acct: [id number] Name: RAJ REYES Rep #: [id number] : 1945 Provider: Johnny Granados MD Age/Sex: 72/F [place] [facility] Status: Signed Assessment AND Plan Problems 1. Pulmonary HTN I27.20 2. 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 Plan Patient's pulmonary function test and walking oximetry are relatively unremarkable. CT scan of the chest does show some mild reticulations at the bases that may be secondary to scleroderma versus methotrexate. That being said, patient's pulmonary function tests are showing only mild disease at this time. Will repeat pulmonary function test in 6 months to ensure stability. Patient should continue on therapy for scleroderma. No desaturation was noted with walking, so pulmonary hypertension is likely not clinically significant at this time. Obtain repeat PFT in 6 months. No change in medications. Orders Orders: Plan Detail Follow Up 6 Months ([facility]) HPI 2 M FU: Chief Complaint: Test results Details: Patient is a 72-year-old female, currently the care of Dr. Lindo, who presents for evaluation secondary to recent test results. Since last visit, patient does report she was seen in the ER secondary to a left hip contusion when she fell on December 29. Patient states this has been diagnosed as a bruised hip and will not require any surgery. Patient denies any hospitalizations or prednisone burst. Patient is currently not on any inhalers. Patient is still taking methotrexate for her scleroderma. Patient does report she has decreased mobility associated with her hip contusion. However, patient denies any other symptoms such as fever, chills, change in cough, chest pain, epistaxis or hemoptysis. Patient believes her scleroderma is grossly unchanged compared to previous. Patient denies any further symptoms. Patient reports she has completed an ultrasound of her thyroid given CT results. Patient did have a thyroid function study completed in August that was within normal limits. Patient does not know any plans of biopsy at this time. Testing personally reviewed with the patient Walking oximetry (12/12/2017): Ambulated 955 feet with an oxygen brunilda of 94%. Complete PFT (12/22/2017): Mild restrictive ventilatory defect with a symmetric reduction diffusing capacity (FVC 74%, FEV1 73%, TLC 83%, DLCO 67%). CT chest (12/12/2017): Mild chronic interstitial changes at the lung bases with reticulation of the interstitial and subpleural reticulation. No fibrosis or bronchiectasis appreciated. 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 Required: No Accompanied by: Friend Is patient in pain?: No Allergies gluten Allergy (Verified 01/25/18 10:12) Upset Stomach adhesive tape Adverse Reaction (Mild, Verified 01/25/18 10:12) Rash Medications acetaminophen ER 650 mg tablet,extended release 650 mg PO QDAY tab 11/10/17 [History Confirmed 11/16/17] amlodipine 5 mg tablet 5 mg PO QDAY 11/10/17 [History Confirmed 11/16/17] ascorbic acid (vitamin C) 1,000 mg tablet 1 g PO QDAY tab 11/10/17 [History Confirmed 11/16/17] aspirin 81 mg tablet,delayed release 81 mg PO QDAY 11/10/17 [History Confirmed 11/16/17] calcium carbonate 600 mg calcium (1,500 mg) tablet 1,200 mg PO QDAY tab 11/10/17 [History Confirmed 11/16/17] cholecalciferol (vitamin D3) 1,000 unit capsule 1,000 unit PO QDAY 11/10/17 [History Confirmed 11/16/17] duloxetine 30 mg capsule,delayed release 30 mg PO QDAY 11/10/17 [History Confirmed 11/16/17] ibuprofen 800 mg tablet See Label Instructions PO QDAY tab 11/10/17 [History Confirmed 11/16/17] lansoprazole 30 mg capsule,delayed release 30 mg PO QDAY 90 Days #90 cap 11/10/17 [History Confirmed 11/16/17] methotrexate sodium 2.5 mg tablet 20 mg PO QWEEK tab 11/10/17 [History Confirmed 11/16/17] multivitamin tablet 1 tab PO QAM 11/10/17 [History Confirmed 11/16/17] timolol 0.5 % eye drops 1 drp OPHTHALMIC BID 11/10/17 [History Confirmed 11/16/17] anastrozole 1 mg tablet 1 mg PO ONCE 11/16/17 [History Confirmed 11/16/17] folic acid 1 mg tablet 2 mg PO QDAY tab 01/25/18 [History Confirmed 01/25/18] glucosamine 750 [id number] no1 625 mg-C 30 mg-hsant 1 mg tablet 1 tab PO BID tab 01/25/18 [History Confirmed 01/25/18] lorazepam 0.5 mg tablet 0.5 mg PO QDAY 90 Days #270 tab 01/25/18 [History Confirmed 01/25/18] [facility] Medical History Papilloma of breast (Resolved) Fibromyalgia (Chronic) Scleroderma (Chronic) Anxiety (Chronic) Cancer of central portion of 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 (Resolved) Pulmonary HTN (Chronic) Pulmonary emphysema (Chronic) Cough (Acute) HTN (hypertension) (Chronic) Surgical History History of laparoscopic cholecystectomy (Resolved) History of parotidectomy (Resolved) melnoma left chest (Resolved) History of right mastectomy (Resolved) Family History Father Sarcoma Mother Hypertension Rheumatoid arthritis Brother Hypertension Seizures Disability, developmental Dysphagia Social History Smoking Status: Former smoker how long ago did patient quit smokin, 0.5p/d second hand exposure: Yes alcohol intake: current alcohol intake frequency: a few times a month Alcohol type: wine substance use type: does not use Review of Systems Const CONSTITUTIONAL: Negative anorexia, body ache, chills, daytime sleepiness, fever(s), night sweats, oral thrush, stops breathing during sleep, weight loss, sleeping in chair, fatigue, weight loss, weight gain, frequent colds, seasonal allergies, other, headache(s) or orthopnea EETM Ear Nose Throat Mouth: Positive hearing normal; negative hard of hearing, hoarseness, dry mouth in morning, change in vision, itchy eyes, eye pain, swallowing Difficulty, ear pain, nose bleed, headache(s), mouth pain, nasal congestion, nasal discharge, post nasal drip, sinus pain, sinus pressure, sore throat or other Cardio Cardiovascular: Negative chest pain, chest pain at rest, chest pain with activity, irregular heart rhythm, edema, shortness of breath when lying down, palpitations, murmur or other Resp Respiratory: Positive as per HPI and shortness of breath; negative pain with cough, wheezing, chest congestion, cough, chest tightness, pain on inspiration, inhalers, increase use of rescue inhalers, snoring, apnea or other Gastro Gastrointestional: Positive change in appetite; negative bloody stools, difficulty swallowing, reflux, hematemesis, melena stool, loose stool, constipation or other Genitourinary: Negative blood in urine, nocturia, pain with urination or other Musc Musculoskeletal: Negative body pain, back pain, neck pain or other Skin/Breast Skin/Breast: Negative dry skin, itching, rash, unusual bruising, breast lump or other Neuro Neurological: Negative restless legs, confusion, weakness or other Psych Psychocological: Negative abnormal sleep pattern, anxiety, thoughts of hurting self/others, hopelessness or other Lymph Lymphatic: Negative easy bleeding, easy bruising, swollen lymph nodes or other Exam Const Constitutional: Positive conversant, cooperative, in no acute respiratory distress, healthy appearing, well developed, well nourished and good hygiene Head Head: Positive normocephalic and atraumatic; negative cyanosis of lips/distal nose, frontal sinus tenderness or maxillary sinus tenderness Eyes Eye: Positive clear conjunctiva; negative nystagmus, scleral abnormality or cataract present Ears Ear: Positive hearing normal and external ears normal; negative hard of hearing Nose Nose: Positive external nose normal, septum normal and no nasal discharge; negative epistaxis or nasal polyp Mouth Mouth: Positive oral mucosae normal, no lesions and posterior oropharynx is adequate; negative post nasal drip, malodorous breath or oral thrush present Mallampati Score: I: Mallampati Score Neck Neck: Positive normal visual inspection, full ROM and trachea midline; negative lymphadenopathy or JVD Chest Wall Chest: Positive normal inspection of the chest and symmetric chest movement; negative crepitus or tenderness Resp lung sounds: Positive good air exchange, rales rales: Positive bilateral and lower, normal expiratory time and normal respiratory effort; negative wheezes, rhonchi, use of accessory muscles or wheeze present on forced exhalation Cardio Cardiac: Positive regular rate, regular rhythm, S1 normal and S2 normal; negative murmur, rub or gallop GI GI: Positive normal to inspection and normal bowel sounds; negative distended, ascites or epigastric tenderness Genitourinary: [place] [facility] [place]: Positive in a wheelchair; negative kyphosis or scoliosis Skin Pulmonary Skin Exam: Positive intact; negative rash, lesion or ulcers Thickening of skin bilateral hands. Grossly unchanged compared to previous. No digital ulcers noted. Pulses Pulse: Yes radial pulses present Extremities Extremities: Yes capillary refill normal, No clubbing, No cyanosis, No stasis dermatitis Neuro Neurologic: Yes conversant, Yes normal coordination, Yes normal concentration, Yes cooperative, Yes normal cognition Lymph Lymphatic: No lymphadenopathy Psych Appearance: Positive grossly normal Mental Status: Positive mental status grossly normal Mood: Positive congruent mood Affect: Positive normal affect Coding Level of Care Code Off vis,est,level 3 Diagnoses Pulmonary HTN I27.20 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 01/25/18 1549 <Electronically signed by Johnny Granados MD> Date Johnny Granados MD Cosigner Signature: Date (if applicable) CC: Jack Lindo DO COMPREHENSIVE METABOLIC Collected: 01/09/2018 Status: F Source: [place] 11:53 AM [facility] REPOSITORY TYPE CODE TESTS RESULT OUT OF RANGE REFERENCE UNITS LAB L501.0100 74-106 mg/dL Normal GLU 101 Result Comment: Fasting Glucose result from 100 to 125 mg/dL suggests IMPAIRED HOMEOSTASIS per A.D.A. criteria. Please note revised GLUCOSE reference range effective 2017. LAB L501.1000 7-18 mg/dL Normal BUN 8 LAB L501.1100 0.55-1.02 mg/dL Normal CREAT,SERUM 0.67 Result Comment: The validity of the calculated GFR AND GFRAA in patients over 70 years has not been determined. Clinical correlation is essential. LAB L501.1110 >60 mL/min Normal EST GFR 91 Result Comment: Non- GFR Calc LAB L501.1115 >60 mL/min Normal EST GFR - AA 110 Result Comment: GFR Calc LAB L501.1300 10-20 RATIO Normal BUN/CRE 11.9 LAB L501.1500 6.4-8.2 g/dL T Normal PROT 7.4 LAB L501.1800 3.2-5.0 g/dL Normal ALB 3.8 LAB L501.1950 2.2-4.2 g/dL Normal GLOB 3.6 LAB L501.2000 0.9-2.4 RATIO Normal A/G 1.1 LAB L501.2200 8.5-10.1 mg/dL CA Normal 8.9 LAB L501.4100 15-37 U/L Normal AST 24 LAB L501.4305 45-117 U/L High ALK P 123 LAB L501.4405 13-56 U/L Normal ALT 19 LAB L501.4600 0.20-1.00 mg/dL T Normal BILI 0.50 LAB L501.5300 136-145 mmol/L NA Normal 137 LAB L501.5600 3.5-5.1 mmol/L K Normal 3.9 LAB L501.5900 98-107 mmol/L CL Normal 103 LAB L501.6100 21.0-32.0 mmol/L Normal CO2 27.0 LAB L501.6200 5-15 Normal GAP 7 Performed By: #### L500.4050 #### [facility] [address] [place], [address] CBC W/DIFF, AUTOMATED Collected: 01/09/2018 Status: F Source: [place] 11:53 AM [facility] REPOSITORY TYPE CODE TESTS RESULT OUT OF RANGE REFERENCE UNITS LAB L100.1000 4.4-11.0 K/mm3 Normal WBC 6.4 LAB L100.1200 4.2-5.4 M/mm3 Low RBC 3.87 LAB L100.1300 12.0-15.0 g/dl Normal HGB 12.3 LAB L100.1400 37-47 % Normal HCT 37.9 LAB L100.1500 81-99 fL Normal MCV 97.9 LAB L100.1600 27.0-32.0 pg Normal MCH 31.8 LAB L100.1700 32-36 g/gl Normal MCHC 32.5 LAB L100.1810 11.6-14.6 % Normal RDW CV 13.4 LAB L100.1820 35.1-43.9 fl High RDW SD 46.6 LAB L100.1900 150-450 K/mm3 Normal PLT 252 LAB L100.2000 6.2-12.0 fl Normal MPV 9.6 LAB L100.2100 47-70 % High NEUT% 70.9 LAB L100.2200 19-41 % Low LY% 16.3 LAB L100.2300 0-10 % Normal MONO% 8.1 LAB L100.2400 0-5 % Normal EO% 2.8 LAB L100.2500 0-1 % High BASO% 1.7 LAB L100.2550 0.0-0.9 % Normal IM GRAN % 0.200 Result Comment: IG% - Immature Granulocytes (promyelocytes, myelocytes and metamyelocytes) > 1% indicates that a LEFT SHIFT is Present. LAB L100.2620 2.0-7.7 X10 3/uL Normal Absolute Neut 4.6 LAB L100.2720 0.83-4.51 X10 3/ul Normal Absolute Lymph 1.05 Performed By: #### L100.0100 #### [facility] [address] [place], [address] THYROID Observed: 01/09/2018 Status: F Source: [place] 11:01 AM [facility] REPOSITORY [facility] Imaging Services [address] [place] [address] Thyroid MR#: [id number] Acct: [id number] Name: RAJ REYES Rep #: [id number] : 1945 F 72 From: Awais Ferguson MD PCP: Jack Lindo DO Status: REG CLI Study: Thyroid Date of Exam: 01/09/18 Exam# [id number] Ordering Dr: Jack Lindo DO STUDY: THYROID ULTRASOUND REASON FOR EXAM: Female, 72 years old. Nodules. TECHNIQUE: Ultrasound evaluation of the thyroid was performed with real-time and static simon-scale imaging. COMPARISON: CT chest/thorax December 12, 2017. FINDINGS: RIGHT LOBE: The right lobe of the thyroid gland measures 4.8 x 1.9 x 2.0 cm. There is a active. There are multiple nodular lesions, most of which are solid. The largest is in the lower pole, and contains sites of cystic degenerative change, correlating to the area of abnormality best seen on the CT. This measures 1.9 x 1.6 x 1.9 cm. LEFT LOBE: The left lobe of the thyroid gland measures 4.2 x 1.2 x 1.1 cm. There is a homogeneous echotexture. There are several incompletely defined nodular lesions, most of which are solid. The largest is in the lower pole measuring 9 x 7 x 9 mm. This shows a small eccentric area of cystic degenerative change. ISTHMUS: The isthmus measures 2.0 mm. The regional lymph nodes are normal. US/Thyroid IMPRESSION: Multiple bilateral thyroid nodules, consistent with a multinodular goiter. If there is clinical suspicion of other pathology, the largest of these lesions would be amenable to ultrasound-guided needle biopsy. Electronically Signed: Anthony Ferguson MD at 19:58 EDT , Service support , CC: Jack Lindo DO Asset Protection Representative: Signed EMERGENCY DEPARTMENT Observed: 12/30/2017 Status: F Source: [place] SUMMARY 4:34 PM [facility] REPOSITORY [facility] Medical Records Department [address] [place] [id number] Emergency Department Summary 12/30/17 1226 MR#: [id number] Acct: [id number] Name: RAJ REYES Rep #: [id number] : 1945 72 From: Adriana Joyce MD PCP: Jack Lindo DO Status: DEP ER - ER Visit Summary Date of Service: 12/30/17 Chief Complaint: Fall History of Present Illness: The patient is a 72 F who states she lost her balance and fell in her kitchen last evening striking her left hip. She is able to get herself up rather quickly. She states pain has been improved with ibuprofen but she still has pain with weightbearing. She denies striking her head but does note a small contusion on her forehead this morning. She denies headache. She is not on anticoagulants. Physical Examination: Vital signs significant for a blood pressure of 152/83, otherwise unremarkable. Patient sitting upright in bed in no acute distress. Head neck examination with a small hematoma over the right upper forehead. She has no C-spine tenderness. Heart is regular rate and rhythm. Lung sounds are clear. Abdomen is soft nontender. Lower extremity examination was tenderness palpation over the greater trochanter of the left hip. She has full range of motion. She has normal distal pulses. Test Results: Left hip and pelvis x-rays are obtained and reveal degenerative changes with no fracture or dislocation. Emergency Department Course and Treatment: Test results were discussed with the patient. She will continue anti-inflammatories. Treatment Plan: [] Disposition: Discharge Impression: Left hip contusion status post fall This note was generated with [employer] software. It may contain incorrect words, spelling, and punctuation that were not noted in review of the chart prior to signing ED Disposition - Plan for ED Patient: Chief Complaint: Fall Referrals: Jack Lindo, DO [Primary Care Provider] - What to do if you have Problems For any increased pain, shortness of breath, bleeding, nausea or vomiting, chest pain, or any unexpected problems, contact your Primary Care Provider. Call [facility] ([phone]) or report to the closest Emergency Room. Call 911 if necessary. 12/30/17 8534 <Electronically signed by Adriana Joyce MD> Date Adriana Joyce MD Cosigner Signature (If Indicated): Date CC: Jack Lindo DO DISCHARGE INSTRUCTION Observed: 12/30/2017 Status: F Source: [place] 12:38 PM [facility] REPOSITORY [facility] Medical Records Department [address] [place] [address] Discharge Instruction 12/30/17 1237 MR#: [id number] Acct: [id number] Name: KARINEMACORAJ HOUSTON Rep #: [id number] : 1945 72 From: Adriana Joyce MD PCP: Jack Lindo DO Status: REG ER ED Disposition - Plan for ED Patient: Disposition: Home or Assisted Living Chief Complaint: Fall Instructions: ED Contusion Hip Referrals: Jack Lindo DO [Primary Care Provider] - 1 Week if not improving What to do if you have Problems For any increased pain, shortness of breath, bleeding, nausea or vomiting, chest pain, or any unexpected problems, contact your Primary Care Provider. Call [facility] ([phone]) or report to the closest Emergency Room. Call 911 if necessary. 12/30/17 1238 <Electronically signed by Adriana Joyce MD> Date Adriana Joyce MD Cosigner Signature (If Indicated): Date CC: Jack Lindo DO HIP 2-3 VIEWS WITH Observed: 12/30/2017 Status: F Source: [place] PELVIS 11:51 AM [facility] REPOSITORY [facility] Imaging Services [address] [place] [address] Hip 2-3 Views with Pelvis MR#: [id number] Acct: [id number] Name: RAJ REYES Abhishek Rep #: [id number] : 1945 F 72 From: Rick Fay MD PCP: Jack Lindo DO Status: REG ER Study: Hip 2-3 Views with Pelvis Date of Exam: 12/30/17 Exam# [id number] Ordering Dr: Adriana Joyce MD STUDY: X-RAY - PELVIS AND LEFT HIP REASON FOR EXAM: Female, 72 years old. Hip pain following a fall. TECHNIQUE: Radiological exam, hip, unilateral, with pelvis when performed; 2 or 3 views. COMPARISON: None. FINDINGS: There is a non-specific bowel gas pattern. There are multiple calcified phleboliths. Normal bilateral iliac wings, sacroiliac joints and visualized sacrum. Normal bilateral superior and inferior pubic rami. There are degenerative changes of the pubic symphysis with articular narrowing and sclerosis. Normal bilateral ischial tuberosities. Normal visualized femoral head. There is osteoarthritic spur formation of the acetabular rim. There is moderate articular joint space narrowing of the hip. This space narrowing in the lower lumbar spine with dextroscoliosis. RAD/Hip 2-3 Views with Pelvis IMPRESSION: Degenerative changes of the hip joint. No fracture or dislocation is seen. Electronically Signed: Rick Fay MD at 12:34 EDT Tel [phone], Service support , CC: Adriana Joyce MD; Jack Lindo DO Asset Protection Representative: Signed MG BREAST TOMOSYNTHESIS Observed: 12/27/2017 Status: F Source: [place] SCR LEFT 12:00 AM SYSTEM REPOSITORY Patient Name: RAJ REYES Mammography Exam Date/Time 12/27/2017 11:47:55 EDT Exam MG Breast Tomosynthesis Scr Left Ordering Physician CURTIS BARRERA Accession Number [id number] CPT4 Codes 57805 (MG MAMMO 2D SCREENING), 13846 (MG Breast Tomosynthesis Scr Left) Reason For Exam screening Report PATIENT HISTORY: Patient is postmenopausal, has history of cancer in the 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 at age 71, and has history of melanoma skincancer. Family history of unknown cancer under age 50 in father, melanoma skin cancer at age 50 or over in mother, breast cancer at age 50 or over in maternal cousin. Malignant US BX breast 1st lesion image RT of the 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, December 03, 2016. Ultrasound-guided core biopsy of the 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, October 28, 2011. Benign core biopsy of the left breast, June 27, 1979. Benign lumpectomy of the 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, June 27, 1979. Core biopsy. Took hormonal contraceptives beginning at age 18. Took estrogen beginning at age 51. Took arimidex for 1 year. Taking unspecified hormones for 1 month. Patient is a former smoker, and smoked for 40 years. Patient's BMI is 19.2. TIME SINCE LAST MAMMOGRAM: Last mammogram was performed 1 year and 6 months ago. REASON FOR EXAM: screening, asymptomatic. PROCEDURE: MG BREAST TOMOSYNTHESIS SCR LEFT: DECEMBER 27, 2017 - 2D/3D Procedure 3D CC and MLO view(s) were taken of the left breast. 2D CC and MLO view(s) were taken of the left breast. Prior study comparison: December 03, 2016, MG mammogram digital diagnostic right, performed at [facility]. July 06, 2016, bilateral mammogram, performed at [facility]. July 02, 2015, bilateral screening mammogram performed at [facility]. June 25, 2014, bilateral screening mammogram performed at [facility]. TISSUE DENSITY: There are scattered fibroglandular densities. . FINDINGS: There are postoperative changes in the upper outer quadrant of the left breast in the posterior depth. Loosely scattered calcifications are unchanged. No suspicious masses, architectural distortions or suspiciously clustered microcalcifications are identified. There is no evidence of skin thickening or nipple retraction. There are no significant changes when compared with prior studies. Markings on images: BB's = Nipples; skin lesions Open pechanga = Palpable Line = Scar 2D digital mammography and tomosynthesis imaging were performed and reviewed with CAD. ASSESSMENT: Category 2 Benign No mammographic evidence of malignancy. RECOMMENDATION: Routine screening mammogram of the left breast in 1 year. . Report Dictated on Final Signed Date and Time: 12/27/2017 2:56 pm Signed by: MD PINTO LAUREN B PULMONARY FUNCTION Observed: 12/22/2017 Status: F Source: [place] REPORT COMP 1:49 PM [facility] REPOSITORY [facility] Pulmonary Services/Neurology [facility] [place] [address] [place] [address] MR#: [id number] Acct: [id number] Name: RAJ REYES Rep #: [id number] : 1945 72 From: Johnny Granados MD Referring Dr: Johnny Granados MD Status: REG CLI Ordering Dr: Date: Location: N Sex: F C COMPLETE PULMONARY FUNCTION TEST INTERPRETATION Brief HPI: Patient is a 72 year old female, currently under the care of myself, who presents to [facility] for complete pulmonary function tests secondary to diagnosis of dyspnea. Respiratory therapist reports good effort and reproducible results. Interpretation: Forced expiration spirometry shows no large airways obstructive ventilatory defect with an FEV1 of 73% predicted. There is no significant bronchodilator response by ATS criteria. Spirograms are of good quality and plateau normally. The respiratory flow volume loop shows a normal pattern. Lung volumes by body plethysmography show a decreased total lung capacity at 4.96 L, 83% predicted. All other lung volumes are reduced symmetrically. Diffusion capacity by carbon monoxide is at the lower limit of normal at 67% predicted. The airway resistance is elevated. No previous pulmonary function tests were available for review. Impression: Mild restrictive ventilatory defect with a symmetric reduction diffusing capacity 12/22/17 1349 <Electronically signed by Johnny Granados MD> Date Johnny Granados MD CC: Johnny Granados MD; Jack Lindo DO Date Dictated: 12/22/17 1347 Date Transcribed: 12/22/17 1347 Asset Protection Representative: JOSÉ ANTONIO Signed 6 MINUTE WALK TEST Observed: 12/12/2017 Status: F Source: [place] 1:28 PM [facility] REPOSITORY [facility] Pulmonary Services/Neurology [address] [place] [id number] MR#: [id number] Acct: [id number] Name: RAJ REYES Rep #: [id number] : 1945 72 From: Geo Herring DO Referring Dr: Johnny Granados MD Date: Ordering Dr: Sex: F C Location: [place] PSN 6 Minute Walk Test - 6 Minute Walk Test 6 Minute Walk Test: 6 Minute Walk Test PSN:6-Minute Walk Test Start: 12/12/17 11:22 Freq: Status: Active Protocol: RESP.6MINW Document 12/12/17 11:23 SMB (Rec: 12/12/17 11:25 SMB [id number]) 6 Minute Walk Test Date Performed 12/12/17 Time Performed 11:10 Height 5 ft 10 in Weight: 137 lb Weight in Pounds 137.[address]: Johnny Granados Assistive device used: None Pre-test Oxygen Delivery Method Room Air Pulse Ox (%) 95 Pulse Rate (60-100 beats/min) 82 Dyspnea Russel Scale (0-10) 0 Exertion Russel Scale (6-20) 11 1st minute Oxygen Delivery Method Room Air Pulse Ox (%) 98 Pulse Rate (60-100 beats/min) 96 2nd minute Oxygen Delivery Method Room Air Pulse Ox (%) 97 Pulse Rate (60-100 beats/min) 102 H 3rd minute Oxygen Delivery Method Room Air Pulse Ox (%) 97 Pulse Rate (60-100 beats/min) 98 4th minute Oxygen Delivery Method Room Air Pulse Ox (%) 94 Pulse Rate (60-100 beats/min) 94 5th minute Oxygen Delivery Method Room Air Pulse Ox (%) 94 Pulse Rate (60-100 beats/min) 98 6th minute Oxygen Delivery Method Room Air Pulse Ox (%) 96 Pulse Rate (60-100 beats/min) 97 Post-test Oxygen Delivery Method Room Air Pulse Ox (%) 95 Pulse Rate (60-100 beats/min) 82 Dyspnea Russel Scale (0-10) 0 Exertion Russel Scale (6-20) 11 Full Laps Walked 16 Partial Lap, Number of Tiles Walked 11 Total Distance Walked (ft) 955 - Interpretation Interpretation: The patient ambulated 955 feet over the course of 6 minutes beginning on room air without assistive devices or breaks. Pretesting oxygen saturation was noted to be 95% on room air. With ambulation, the brunilda oxygen saturation was 94%. There was no significant exertional oxygen desaturation noted. - Recommendations Recommendations: There is no indication for the use of supplemental oxygen at this time. 12/12/17 1328 <Electronically signed by Geo Herring DO> Date Geo Herring DO CC: Date Dictated: 12/12/17 1326 Date Transcribed: 12/12/171325 Asset Protection Representative: Geo Herring DO Signed CHEST WITHOUT Observed: 12/12/2017 Status: F Source: [place] CONTRAST 10:59 AM [facility] REPOSITORY [facility] Imaging Services [address] [place] [address] Chest without Contrast MR#: [id number] Acct: [id number] Name: RAJ REYES Rep #: [id number] : 1945 F 72 From: Otoniel Nelson MD PCP: Jack Lindo DO Status: REG CLI Study: Chest without Contrast Date of Exam: 12/12/17 Exam# [id number] Ordering Dr: Johnny Granados MD STUDY: CT CHEST WITHOUT CONTRAST REASON FOR EXAM: Female, 72 years old. Wheezing, COPD. Pulmonary arterial hypertension. Scleroderma. RADIATION DOSAGE (If Supplied By Facility): CTDIvol = ( 8.15 ) mGy, DLP = ( 268.38 ) mGycm TECHNIQUE: Transaxial imaging was performed without the administration of intravenous contrast material. : Sagittal 2-D MPR. Individualized dose optimization techniques were used for this CT. COMPARISON: X-ray chest 09/07/2017. FINDINGS: Supraclavicular: Thyroid nodules on the right, the largest measuring approximately 1.2 cm, low density, favoring goiter but incompletely characterized. Ultrasound thyroid is recommended. Body wall soft tissues: Right mastectomy. No acute process. Osseous structures: No acute process. Mild scoliosis. Mild thoracic spondylosis. Upper abdomen: Limited evaluation, no acute process. Mediastinum: Normal esophagus. No mass or lymphadenopathy. Cardiovascular: Normal heart size without effusion and with no visible coronary calcifications. There are calcifications of the aortic valve annulus. The ascending aorta is mildly ectatic 3.5 cm, nonaneurysmal. The central pulmonary arteries are nondilated, main pulmonary artery 2.5 cm. Lungs: There is mild scarring and reticulation at the lung bases bilaterally. There are no suspicious pulmonary lesions and there is no evidence of acute pneumonia or pulmonary edema. No significant features of emphysema. There is mild generalized hyperlucency that could reflect mild COPD or excellent inspiratory effort. Normal airways. CT/Chest without Contrast IMPRESSION: Mild chronic interstitial changes of the lungs predominating at the lung bases, mild interstitial scar with reticulation of the interstitium and subpleural reticulation. No mariola fibrosis or bronchiectasis. There is no evidence of hyperlucency or asymmetric inflation of lungs to suggest acute air trapping. There are no features of emphysema. Mild hyperinflation of the lungs may reflect excellent inspiratory effort or mild COPD. No other acute cardiopulmonary process is evident. Electronically Signed: Otoniel Nelson, at 13:55 EDT Tel , Service support , CC: Johnny Granados MD; Jack Lindo DO Asset Protection Representative: Signed PULMONARY VISIT REPORT Observed: 11/16/2017 Status: F Source: [place] 10:35 AM [facility] Pulmonary Medicine of [address] [place] [address] OFFICE VISIT Date of Service: 11/16/17 MR#: [id number] Acct: [id number] Name: RAJ REYES Rep #: [id number] : 1945 Provider: Johnny Granados MD Age/Sex: 72/F [place] [facility] Status: Signed Assessment AND Plan 1. Shortness of breath R06.02 Plan Patient reportedly is having most of her shortness of breath with change in position. This may be secondary to emphysematous type changes given patient's smoking history. Patient reportedly had good flows on previous testing. Patient does have scleroderma, which has been associated with multiple lung complications. Patient is also on methotrexate. Obtain complete pulmonary function test, walking oximetry and CT chest Orders Orders: 2. 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 Plan Patient appears to have extensive scleroderma of the hands and has been told that she has pulmonary hypertension by echocardiogram. To patient's knowledge, a walking oximetry is never been completed. Will obtain a complete pulmonary function test for quantification and clarification of lung function. We will also obtain a CT scan of the chest to elicit for interstitial thickening. Patient has been on methotrexate for several years, so interstitial lung disease may also be seen with the use of methotrexate. We will also obtain a walking oximetry to evaluate for exertional hypoxemia. Obtain CT of the chest, walking oximetry and complete PFT Orders Orders: 3. Pulmonary HTN I27.20 Plan Echocardiogram is not available for review at this time. Will obtain records from [facility]. Patient reportedly does not have many exertional type symptoms making clinically significant pulmonary hypertension unlikely. Will obtain a walking oximetry to be sure patient is not desaturating with ambulation. If patient is found to have significant desaturation, a right heart catheterization may be indicated. Obtain walking oximetry. Supplemental oxygen if indicated. Orders Orders: Plan Detail Other Medications New: HPI Shortness of breath: Chief Complaint: Shortness of breath Details: Patient is a 72-year-old female, currently under the care of Dr. Lindo, who presents for evaluation secondary to shortness of breath. Patient reports she has a long history of scleroderma and is followed by Dr. Song. Patient states that she was placed on methotrexate around the year 1999 and had been receiving annual pulmonary function test. Patient believes that these were improving, so they were discontinued at approximately 2012. However, patient reports she has noticed increased shortness of breath, typically with change in body position. Patient states that when she tries to put on her DION hose, she starts to have significant shortness of breath. This does resolve with rest. Patient reports that her exercise tolerance is somewhat limited secondary to neuropathy and numbness of her feet. Patient does have some shortness of breath with walking up the stairs, but is unclear if this is progressing. Patient reports that she has never been seen by a capital equipment specialist previously. Patient has been told that she has pulmonary hypertension. Patient reports she has never had a walking oximetry or right heart catheterization for quantification. Echocardiograms have shown progressive increase in pulmonary artery pressures. Patient denies any dyspnea associated with cyanosis. Patient states that her scleroderma makes it difficult to check pulse oximetry, but every time they checked about a year at bedside. Patient is unaware if she is ever had a CT scan of the chest describing pulmonary fibrosis. Patient does have a history of stage II breast cancer. Patient states this was treated with a mastectomy. No lymph nodes were noted in the axilla and patient did not receive chemo or radiation in conjunction to the mastectomy. Documentation reviewed 30 pages of documentation were reviewed. 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 No pulmonary function tests are available for review. Patient did have a malignant neoplasm of the 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. Laboratory workup was grossly unremarkable including cholesterol panel, metabolic panel and thyroid function studies. Intake Vital Signs11/16/17 Height 5 ft 10 in Intake Visit Reasons: Shortness of breath Accompanied by: Self Allergies folic acid [From Bio-35] Allergy (Unknown, Verified 11/16/17 07:02) Unknown herbal complex no. 153 [From Bio-35] Allergy (Unknown, Verified 11/16/17 07:02) Unknown lutein [From Bio-35] Allergy (Unknown, Verified 11/16/17 07:02) Unknown lycopene [From Bio-35] Allergy (Unknown, Verified 11/16/17 07:02) Unknown multivit with calcium, iron, and other minerals [From Bio- 35] Allergy (Unknown, Verified 11/16/17 07:02) Unknown adhesive tape Adverse Reaction (Mild, Verified 11/16/17 07:02) Rash Medications acetaminophen ER 650 mg tablet,extended release 650 mg PO QDAY tab 11/10/17 [History Confirmed 11/16/17] amlodipine 5 mg tablet 5 mg PO QDAY 11/10/17 [History Confirmed 11/16/17] ascorbic acid (vitamin C) 1,000 mg tablet 1 g PO QDAY tab 11/10/17 [History Confirmed 11/16/17] aspirin 81 mg tablet,delayed release 81 mg PO QDAY 11/10/17 [History Confirmed 11/16/17] calcium carbonate 600 mg calcium (1,500 mg) tablet 1,200 mg PO QDAY tab 11/10/17 [History Confirmed 11/16/17] cholecalciferol (vitamin D3) 1,000 unit capsule 1,000 unit PO QDAY 11/10/17 [History Confirmed 11/16/17] duloxetine 30 mg capsule,delayed release 30 mg PO QDAY 11/10/17 [History Confirmed 11/16/17] folic acid 1 mg tablet 1 mg PO QDAY 11/10/17 [History Confirmed 11/16/17] glucosamine 750 [id number] no1 625 mg-C 30 mg-shant 1 mg tablet 1 tab PO QDAY tab 11/10/17 [History Confirmed 11/16/17] ibuprofen 800 mg tablet See Label Instructions PO QDAY tab 11/10/17 [History Confirmed 11/16/17] lansoprazole 30 mg capsule,delayed release 30 mg PO QDAY 90 Days #90 cap 11/10/17 [History Confirmed 11/16/17] lorazepam 0.5 mg tablet 0.5 mg PO TID PRN 90 Days #270 tab 11/10/17 [History Confirmed 11/16/17] methotrexate sodium 2.5 mg tablet 20 mg PO QWEEK tab 11/10/17 [History Confirmed 11/16/17] multivitamin tablet 1 tab PO QAM 11/10/17 [History Confirmed 11/16/17] timolol 0.5 % eye drops 1 drp OPHTHALMIC BID 11/10/17 [History Confirmed 11/16/17] anastrozole 1 mg tablet 1 mg PO ONCE 11/16/17 [History Confirmed 11/16/17] PFSH Family History Father Sarcoma Mother Hypertension Rheumatoid arthritis Brother Hypertension Seizures Disability, developmental Dysphagia Social History Smoking Status: Former smoker how long ago did patient quit smokin, 0.5p/d second hand exposure: Yes alcohol intake: current alcohol intake frequency: a few times a month Alcohol type: wine substance use type: does not use Review of Systems Const CONSTITUTIONAL: Positive fatigue; negative anorexia, body ache, chills, daytime sleepiness, fever(s), night sweats, oral thrush, stops breathing during sleep, weight loss, sleeping in chair, weight loss, weight gain, frequent colds, seasonal allergies, other, headache(s) or orthopnea EETM Ear Nose Throat Mouth: Positive hard of hearing; negative hoarseness, dry mouth in morning, change in vision, itchy eyes, eye pain, swallowing Difficulty, ear pain, nose bleed, headache(s), mouth pain, nasal congestion, nasal discharge, post nasal drip, sinus pain, sinus pressure, sore throat or other Cardio Cardiovascular: Negative chest pain, chest pain at rest, chest pain with activity, irregular heart rhythm, edema, shortness of breath when lying down, palpitations, murmur or other Resp Respiratory: Positive as per HPI, shortness of breath shortness of breath: Positive other (feels its positional, bending over) and chest congestion (at times ); negative pain with cough, wheezing, cough, chest tightness, pain on inspiration, inhalers, increase use of rescue inhalers, snoring, apnea or other Gastro Gastrointestional: Negative bloody stools, change in appetite, difficulty swallowing, reflux, hematemesis, melena stool, loose stool, constipation or other Genitourinary: Negative blood in urine, nocturia, pain with urination or other Musc Musculoskeletal: Negative body pain, back pain, neck pain or other Skin/Breast Skin/Breast: Negative dry skin, itching, rash, unusual bruising, breast lump or other Neuro Neurological: Positive weakness; negative restless legs, confusion or other Psych Psychocological: Negative abnormal sleep pattern, anxiety, thoughts of hurting self/others, hopelessness or other Lymph Lymphatic: Negative easy bleeding, easy bruising, swollen lymph nodes or other Exam Const Constitutional: Positive conversant, cooperative, in no acute respiratory distress, healthy appearing, well developed, well nourished and good hygiene; negative wearing supplemental oxygen or ill appearing Head Head: Positive normocephalic and atraumatic; negative cyanosis of lips/distal nose, frontal sinus tenderness or maxillary sinus tenderness Eyes Eye: Positive clear conjunctiva; negative scleral abnormality or nystagmus Ears Ear: Positive hard of hearing and external ears normal Nose Nose: Positive external nose normal, septum normal and no nasal discharge; negative epistaxis or nasal polyp Mouth Mouth: Positive oral mucosae normal, no lesions and posterior oropharynx is adequate; negative post nasal drip, malodorous breath or oral thrush present Mallampati Score: II: Mallampati Score Neck Neck: Positive normal visual inspection, full ROM and trachea midline; negative lymphadenopathy or JVD Chest Wall Chest: Positive normal inspection of the chest and symmetric chest movement; negative crepitus or increased A/P diameter Resp lung sounds: Positive clear to auscultation, good air exchange, normal expiratory time and normal respiratory effort; negative wheezes, wheeze present on forced exhalation, rhonchi, rales or dullness to percussion Cardio Cardiac: Positive regular rate, regular rhythm, S1 normal and S2 normal; negative murmur, rub or gallop GI GI: Positive normal to inspection and normal bowel sounds; negative distended, epigastric tenderness, hepatomegaly or splenomegaly Genitourinary: Positive deferred Musc Musculoskeletal: Positive steady gait, ROM normal and Raynaud's phenomenon; negative using an assistive device for ambulation, kyphosis, scoliosis or rheumatoid nodules Skin Pulmonary Skin Exam: Positive intact and erythema (Thick skin noted of bilateral hands with no ulcerations); negative rash or lesion Pulses Pulse: Yes radial pulses present Extremities Extremities: Yes capillary refill normal, No clubbing, No cyanosis, No edema, No stasis dermatitis Neuro Neurologic: Yes conversant, Yes no focal neuro deficits, Yes cooperative, Yes normal cognition, Yes understands questions, Yes normal concentration, Yes normal coordination Lymph Lymphatic: No lymphadenopathy Psych Appearance: Positive grossly normal Mental Status: Positive mental status grossly normal Mood: Positive congruent mood Affect: Positive normal affect Coding Level of Care Code Off vis,new,level 4 Diagnoses Shortness of breath R06.02 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 Pulmonary HTN I27.20 11/16/17 1035 <Electronically signed by Johnny Granados MD> Date Johnny Granados MD Cosigner Signature: Date (if applicable) CC: Jack Lindo DO; Katia Magallanes MD CBC W/DIFF, AUTOMATED Collected: 10/20/2017 Status: F Source: [place] 1:13 PM [facility] REPOSITORY TYPE CODE TESTS RESULT OUT OF RANGE REFERENCE UNITS LAB L100.1000 4.4-11.0 K/mm3 Normal WBC 5.9 LAB L100.1200 4.2-5.4 M/mm3 Low RBC 4.11 LAB L100.1300 12.0-15.0 g/dl Normal HGB 13.0 LAB L100.1400 37-47 % Normal HCT 39.8 LAB L100.1500 81-99 fL Normal MCV 96.8 LAB L100.1600 27.0-32.0 pg Normal MCH 31.6 LAB L100.1700 32-36 g/gl Normal MCHC 32.7 LAB L100.1810 11.6-14.6 % Normal RDW CV 13.1 LAB L100.1820 35.1-43.9 fl High RDW SD 45.1 LAB L100.1900 150-450 K/mm3 Normal PLT 212 LAB L100.2000 6.2-12.0 fl Normal MPV 9.6 LAB L100.2100 47-70 % Normal NEUT% 65.9 LAB L100.2200 19-41 % Normal LY% 21.9 LAB L100.2300 0-10 % Normal MONO% 7.8 LAB L100.2400 0-5 % Normal EO% 2.2 LAB L100.2500 0-1 % High BASO% 2.2 LAB L100.2550 0.0-0.9 % Normal IM GRAN % 0.000 Result Comment: IG% - Immature Granulocytes (promyelocytes, myelocytes and metamyelocytes) > 1% indicates that a LEFT SHIFT is Present. LAB L100.2620 2.0-7.7 X10 3/uL Normal Absolute Neut 3.9 LAB L100.2720 0.83-4.51 X10 3/ul Normal Absolute Lymph 1.30 Performed By: #### L100.0100 #### [facility] [address] [place], [address] COMPREHENSIVE METABOLIC Collected: 10/20/2017 Status: F Source: [facility] 1:06 PM [facility] REPOSITORY TYPE CODE TESTS RESULT OUT OF RANGE REFERENCE UNITS LAB L501.0100 74-106 mg/dL Normal GLU 88 Result Comment: Please note revised GLUCOSE reference range effective 2017. LAB L501.1000 7-18 mg/dL Normal BUN 9 LAB L501.1100 0.55-1.02 mg/dL Normal CREAT,SERUM 0.58 Result Comment: The validity of the calculated GFR AND GFRAA in patients over 70 years has not been determined. Clinical correlation is essential. LAB L501.1110 >60 mL/min Normal EST GFR 109 Result Comment: Non- GFR Calc LAB L501.1115 >60 mL/min Normal EST GFR - AA 132 Result Comment: GFR Calc LAB L501.1300 10-20 RATIO Normal BUN/CRE 15.7 LAB L501.1500 6.4-8.2 g/dL T Normal PROT 7.4 LAB L501.1800 3.2-5.0 g/dL Normal ALB 4.0 LAB L501.1950 2.2-4.2 g/dL Normal GLOB 3.4 LAB L501.2000 0.9-2.4 RATIO Normal A/G 1.2 LAB L501.2200 8.5-10.1 mg/dL CA Normal 9.0 LAB L501.4100 15-37 U/L Normal AST 25 LAB L501.4305 45-117 U/L Normal ALK P 93 LAB L501.4405 13-56 U/L Normal ALT 23 LAB L501.4600 0.20-1.00 mg/dL T Normal BILI 0.40 LAB L501.5300 136-145 mmol/L NA Normal 140 LAB L501.5600 3.5-5.1 mmol/L K Normal 3.8 LAB L501.5900 98-107 mmol/L CL Normal 104 LAB L501.6100 21.0-32.0 mmol/L Normal CO2 28.0 LAB L501.6200 5-15 Normal GAP 8 Performed By: #### L500.4050, L500.4100, L501.9520 #### [facility] [address] [place], [address] LIPID PROFILE Collected: 10/20/2017 Status: F Source: [place] 1:06 [facility] REPOSITORY TYPE CODE TESTS RESULT OUT OF RANGE REFERENCE UNITS LAB L501.4900 200 mg/dL High CHOL 210 Result Comment: <200 mg/dL Desirable 200-240 mg/dL Borderline >240 mg/dL High Risk LAB L501.5000 mg/dL Normal TRIG 114 Result Comment: The drugs N-Acetylcysteine and Metamizole may falsely depress this assay. Serum Triglycerides Reference Interval Normal <150 mg/dL Borderline high 150 - 199 mg/dL High 200 - 499 mg/dL Very High > or = 500 mg/dL LAB L501.6400 mg/dL Normal HDL 68 Result Comment: The drugs N-Acetylcysteine and Metamizole may falsely depress this assay. Reference Range HDL <40 mg/dL Low HDL Cholesterol HDL >or= 60 mg/dL High HDL Cholesterol LAB L501.6500 0-130 mg/dL Normal LDL 119 LAB L501.6600 5-40 mg/dL Normal VLDL 23 Performed By: #### L500.4050, L500.4100, L501.9520 #### [facility] [address] [place], [address] THYROID STIM HORMONE Collected: 10/20/2017 Status: F Source: [place] (T[facility]) 1:06 PM [facility] REPOSITORY TYPE CODE TESTS RESULT OUT OF RANGE REFERENCE UNITS LAB L501.9520 0.358-3.74 uIU/mL Normal TSH 0.56 Performed By: #### L500.4050, L500.4100, L501.9520 #### [facility] [address] [place], [address] VITAMIN D,25 HYDROXY Collected: 10/20/2017 Status: F Source: [place] 1:06 PM [facility] REPOSITORY TYPE CODE TESTS RESULT OUT OF RANGE REFERENCE UNITS LAB L506.1000 29.95-100.01 ng/mL Normal Vitamin D 57.8 25-OH Result Comment: Vitamin D 25(OH) Status Range Deficiency <20 ng/mL (50nmol/L) Insuffciency 20 - 30 ng/mL (50 - 75 nmol/L) Sufficiency 30 - 100 ng/mL (75 - 250 nmol/L) Toxicity >100 ng/mL (>250 nmol/L) Performed By: #### L506.1000 #### [facility] [address] [place], [address] CHEST PA AND LATERAL Observed: 09/07/2017 Status: F Source: [place] 9:15 AM [facility] REPOSITORY [facility] Imaging Services [address] [facility] [place] [address] Chest PA and Lateral MR#: [id number] Acct: [id number] Name: RAJ REYES Rep #: [id number] : 1945 F 72 From: Rick Fay MD PCP: Jack Lindo DO Status: REG CLI Study: Chest PA and Lateral Date of Exam: 09/07/17 Exam# [id number] Ordering Dr: Jack Lindo DO STUDY: X-RAY CHEST REASON FOR EXAM: Female, 72 years old. Two-month history of cough. History of breast cancer and right mastectomy. TECHNIQUE: PA and lateral views of the chest. COMPARISON: None. FINDINGS: Prior right mastectomy. Hyperinflation. Scattered calcified granulomas. There is no demonstrated pleural abnormality. Normal size heart. Normal mediastinum and paul. Normal visualized pulmonary arteries. There is atherosclerotic tortuosity of the aortic arch and descending thoracic aorta. There are diffuse degenerative changes of the visualized thoracic spine. Scoliosis of the thoracolumbar junction. Normal visualized ribs, clavicles, and shoulders. Prior cholecystectomy. RAD/Chest PA and Lateral IMPRESSION: Hyperinflation. No acute abnormality is seen. Electronically Signed: Rick Fay MD at 14:02 EDT Tel [phone], Service support , CC: Jack Lindo DO Asset Protection Representative: Signed COMPREHENSIVE METABOLIC Collected: 08/03/2017 Status: F Source: [place] 12:24 PM [facility] REPOSITORY TYPE CODE TESTS RESULT OUT OF RANGE REFERENCE UNITS LAB L501.0100 74-106 mg/dL Normal GLU 84 LAB L501.1000 7-18 mg/dL Normal BUN 14 LAB L501.1100 0.55-1.02 mg/dL Normal 0.64 CREAT,SERUM Result Comment: The validity of the calculated GFR AND GFRAA in patients over 70 years has not been determined. Clinical correlation is essential. LAB L501.1110 >60 mL/min Normal EST GFR 97 Result Comment: Non- GFR Calc LAB L501.1115 >60 mL/min Normal EST GFR - AA 117 Result Comment: GFR Calc LAB L501.1300 10-20 RATIO High BUN/CRE 21.9 LAB L501.1500 6.4-8.2 g/dL T Normal PROT 7.3 LAB L501.1800 3.2-5.0 g/dL Normal ALB 3.8 LAB L501.1950 2.2-4.2 g/dL Normal GLOB 3.5 LAB L501.2000 0.9-2.4 RATIO Normal A/G 1.1 LAB L501.2200 8.5-10.1 mg/dL CA Normal 8.9 LAB L501.4100 15-37 U/L Normal AST 25 LAB L501.4305 45-117 U/L Normal ALK P 93 LAB L501.4405 13-56 U/L Normal ALT 21 Result Comment: Please note revised ALT reference range effective 2017. LAB L501.4600 0.20-1.00 mg/dL Normal T BILI 0.50 LAB L501.5300 136-145 mmol/L Normal NA 137 LAB L501.5600 3.5-5.1 mmol/L Normal K 4.3 LAB L501.5900 98-107 mmol/L Normal CL 100 LAB L501.6100 21.0-32.0 mmol/L Normal CO2 29.0 LAB L501.6200 5-15 Normal GAP 8 Performed By: #### L500.4050 #### [facility] [address] [facility] [place], [address] CBC W/DIFF, AUTOMATED Collected: 08/03/2017 Status: F Source: [place] 12:24 PM [facility] REPOSITORY TYPE CODE TESTS RESULT OUT OF RANGE REFERENCE UNITS LAB L100.1000 4.4-11.0 K/mm3 Normal WBC 5.0 LAB L100.1200 4.2-5.4 M/mm3 Low RBC 4.14 LAB L100.1300 12.0-15.0 g/dl Normal HGB 13.0 LAB L100.1400 37-47 % Normal HCT 40.5 LAB L100.1500 81-99 fL Normal MCV 97.8 LAB L100.1600 27.0-32.0 pg Normal MCH 31.4 LAB L100.1700 32-36 g/gl Normal MCHC 32.1 LAB L100.1810 11.6-14.6 % Normal RDW CV 13.9 LAB L100.1820 35.1-43.9 fl High RDW SD 49.9 LAB L100.1900 150-450 K/mm3 Normal PLT 196 LAB L100.2000 6.2-12.0 fl Normal MPV 9.9 LAB L100.2100 47-70 % Normal NEUT% 65.6 LAB L100.2200 19-41 % Normal LY% 22.0 LAB L100.2300 0-10 % Normal MONO% 7.4 LAB L100.2400 0-5 % Normal EO% 3.2 LAB L100.2500 0-1 % High BASO% 1.8 LAB L100.2550 0.0-0.9 % Normal IM GRAN % 0.000 Result Comment: IG% - Immature Granulocytes (promyelocytes, myelocytes and metamyelocytes) > 1% indicates that a LEFT SHIFT is Present. LAB L100.2620 2.0-7.7 X10 3/uL Normal Absolute Neut 3.3 LAB L100.2720 0.83-4.51 X10 3/ul Normal Absolute Lymph 1.10 Performed By: #### L100.0100 #### [facility] [address] [place], [address] ALLERGIES ALLERGIES DATE TYPE / CODE NAME / CODE REACTION SEVERITY SOURCE 01/25/2018 Drug adhesive Rash ID [place] [facility] Allergy/416 tape/[id number] Hospital 630773(SNOM (RXNORM) Repository ED CT) 01/25/2018 Drug gluten/[id number] Upset Stomach Unknown [place] [facility] Allergy/416 07(RXNORM) Hospital 099495(SNOM Repository ED CT) 11/16/2017 Drug folic Unknown Unknown [place] [facility] Allergy/416 acid/[id number] Hospital 333699(SNOM (RXNORM) Repository ED CT) 11/16/2017 Drug multivit with Unknown Unknown [place] [facility] Allergy/416 calcium, iron, Hospital 078822(SN and other Repository ED CT) minerals/F43543 1072(RXNORM) 11/16/2017 Drug lutein/[id number] Unknown Unknown [place] [facility] Allergy/416 98(RXNORM) Hospital 870506(SNOM Repository ED CT) 11/16/2017 Drug lycopene/X34670 Unknown Unknown [place] [facility] Allergy/416 9145(RXNORM) Hospital 607620(SNOM Repository ED CT) 11/16/2017 Drug herbal complex Unknown Unknown [place] [facility] Allergy/416 no. Hospital 752616([facility] 153/[id number]( Repository ED CT) RXNORM) ENCOUNTERS ENCOUNTERS ADMIT/DISCHARGE ACCOUNT NUMBER ADMITTING ENCOUNTER LOCATION SOURCE CLASS 07/18/2018 [id number] Ambulatory [facility] ding:MTLAB Repository 05/08/2018 [id number] Ambulatory [facility] Repository 04/26/2018 [id number] Ambulatory [facility] ding:MTLAB Repository 01/25/2018/01/26/20 [id number] Ambulatory BMSBuilding: [place] [facility] Repository 01/09/2018 [id number] Ambulatory [facility] ding:OPUS Repository 12/30/2017/12/31/19 [id number] Emergency [address] ding:ED Repository 12/27/2017 [id number] Ambulatory [facility] Repository 12/22/2017 [id number] Ambulatory [facility] ding:PSN Repository 12/22/2017 [id number] Ambulatory BMSBuilding: [facility] Repository 12/12/2017 [id number] Ambulatory [facility] ding:CT Repository 12/12/2017 [id number] Ambulatory BMSBuilding: [facility] Repository 11/16/2017/11/17/19 [id number] Ambulatory BMSBuilding: [place] [facility] Repository 10/20/2017 [id number] Ambulatory [facility] ding:LAB.FUT Repository URE 09/07/2017 [id number] Ambulatory [facility] ding:MTRAD Repository 08/03/2017 [id number] Ambulatory [facility] ding:MTLAB Repository PAYERS PAYERS ENCOUNTER GUARANTOR PAYER SUBSCRIBER SOURCE 07/18/2018 RAJ Martinez [id number] Insurance:MEDICARE WERYDOB: [facility] PART A [facility] [id number] Number: Repository [id number]: [phone] [id number] [phone] () Date:2018-07-18 07/18/2018 Secondary RAJ L [place] Insurance:AETNAPolicy WEAHRYDOB: Community Number: [id number] [id number] Repository Date:1039-81-[address] [address]GL: 07/18/2018 Tertiary NOT GIVENUNK [place] Insurance:SELF PAY [facility]: Effective Repository Date:2018-07-18 05/08/2018 Raj L Primary [facility] WeahryDOB: Insurance:MedicarePol WeahryDOB: System icy Number: Effective [id number] Repository [address] Date: [address] [place] [phone]: () 05/08/2018 Secondary [facility] Insurance:MedicarePol WeahryDOB: System icy Number: Effective [id number] Repository Date: 05/08/2018 Tertiary [facility] Insurance:AetnaPolicy WeahryDOB: System Number: Effective [id number] Repository Date: 04/26/2018 RAJ L Primary RAJ L [place] [id number] Insurance:MEDICARE WEAHRYDOB: Community [address] PART A BPolicy [id number] Number: Repository [address]Yth: [phone] [id number] [phone] () Date:2018-04-26 04/26/2018 Secondary RAJ L [place] Insurance:AETNAPolicy WEAHRYDOB: Community Number: [id number] Hospital [id number] Repository Date:2266-23-34YV [address] [place], [place] [address]ID: 04/26/2018 Tertiary NOT GIVENUNK [place] Insurance:SELF PAY [facility] Number: Effective Repository Date:2018-04-26 01/25/2018 RAJ L Primary RAJ L [place] [id number] Insurance:MEDICARE WEAHRYDOB: Community [address] PART A [facility] [id number] Number: Repository [address]Fto: 330 [id number] [phone] () Date:2017-11-16 01/25/2018 Secondary RAJ L [place] Insurance:AETNAPolicy WEAHRYDOB: Community Number: [id number] [id number] Repository Date:9561-25-41[address] [place] [address]VL: 01/25/2018 Tertiary NOT GIVENUNK [place] Insurance:SELF PAY [facility] Number: Effective Repository Date:2018-01-18 01/09/2018 RAJ L Primary RAJ L [place] [id number] Insurance:MEDICARE WEAHRYDOB: Community [address] PART A [facility] [id number] Number: Repository [address]Rim: 330 [id number] [phone] () Date:2017-12-29 01/09/2018 Secondary RAJ L [place] Insurance:AETNAPolicy WEAHRYDOB: Community Number: [id number] Hospital [id number] Repository Date:7665-52-10[address] [place] [address]CR: 01/09/2018 Tertiary NOT GIVENUNK [place] Insurance:SELF PAY [facility] Number: Effective Repository Date:2017-12-29 12/30/2017 RAJ L Primary RAJ L [place] [id number] Insurance:MEDICARE WEAHRYDOB: Community [address] PART A [facility] [id number] Number: Repository [address]Sul: 330 [id number] [phone] () Date:2017-12-30 12/30/2017 Secondary RAJ L [place] Insurance:AETNAPolicy WEAHRYDOB: Community Number: [id number] [id number] Repository Date:8630-11-42[address] [address]BN: 12/30/2017 Tertiary NOT GIVENUNK [place] Insurance:SELF PAY [facility] Number: Effective Repository Date:2017-12-30 12/27/2017 Raj L Primary [facility] WeahryDOB: Insurance:MedicarePol WeahryDOB: System icy Number: Effective [id number] Repository [address] Date: [address] [place] [phone]: () 12/27/2017 Secondary Raj L [facility] Insurance:MedicarePol WeahryDOB: System icy Number: Effective [id number] Repository Date: 12/27/2017 Tertiary [facility] Insurance:AetnaPolicy WeahryDOB: System Number: Effective [id number] Repository Date: 12/22/2017 RAJ L Primary RAJ L [place] [id number] Insurance:MEDICARE WEAHRYDOB: Community [address] PART A [facility] [id number] Number: Repository [address]Ozm: [phone] [id number] [phone] (HP) Date:2017-11-16 12/22/2017 Secondary RAJ L [place] Insurance:AETNAPolicy WEAHRYDOB: Community Number: [id number] [facility] [id number] Repository Date:0071-03-31[address] [address]JN: 12/22/2017 Tertiary NOT GIVENUNK [place] Insurance:SELF PAY [facility] Number: Effective Repository Date:2017-11-16 12/22/2017 RAJ L Primary RAJ L Michelle [id number] Insurance:MEDICARE WEAHRYDOB: Community [address] PART A [facility] [id number] Number: Repository [id number]: [phone] [id number] [phone] (HP) Date:2017-11-16 12/22/2017 Secondary RAJ L Michelle Insurance:AETNAPolicy WEAHRYDOB: Community Number: [id number] [id number] Repository Date:3788-84-88[address] [place] [address]BP: 12/22/2017 Tertiary NOT GIVENUNK Michelle Insurance:SELF PAY [facility]: Effective Repository Date:2017-12-22 12/12/2017 RAJ L Primary RAJ L Wall [id number] Insurance:MEDICARE WEAHRYDOB: Community [address] PART A [facility] [id number] Number: Repository [id number]: 330 [id number] [phone] () Date:2017-11-16 12/12/2017 Secondary RAJ L Wall Insurance:AETNAPolicy WEAHRYDOB: Community Number: [id number] [id number] Repository Date:0878-34-21[address] [place] [address]HP: 12/12/2017 Tertiary NOT GIVENUNK Wall Insurance:SELF PAY [facility] Number: Effective Repository Date:2017-11-16 12/12/2017 RAJ L Primary RAJ L Michelle [id number] Insurance:MEDICARE WEAHRYDOB: Community [address] PART A [facility] [id number] Number: Repository [address]Agk: 330 [id number] [phone] () Date:2017-11-16 12/12/2017 Secondary RAJ L Michelle Insurance:AETNAPolicy WEAHRYDOB: Community Number: [id number] [facility] [id number] Repository Date:8106-16-88DI [address], [place] [address]RV: 12/12/2017 Tertiary NOT GIVENUNK Wall Insurance:SELF PAY [facility] Number: Effective Repository Date:2017-12-12 11/16/2017 RAJ L Primary RAJ L Wall [id number] Insurance:MEDICARE WEAHRYDOB: Community [address] PART A [facility] [id number] Number: Repository [address]Cmb: 330 [id number] [phone] (HP) Date:2017-08-12 11/16/2017 Secondary RAJ L Wall Insurance:AETNAPolicy WEAHRYDOB: Community Number: [id number] [id number] Repository Date:1233-26-41[address] [place] [address]FF: 11/16/2017 Tertiary NOT GIVENUNK Michelle Insurance:SELF PAY [facility] Number: Effective Repository Date:2017-11-14 10/20/2017 RAJ L Primary RAJ L Wall [id number] Insurance:MEDICARE WEAHRYDOB: Community [address] PART A [facility] [id number] Number: Repository [address]Srg: [phone] [id number] [phone] (HP) Date:2017-09-27 10/20/2017 Secondary RAJ L Wall Insurance:AETNAPolicy WEAHRYDOB: Community Number: [id number] [facility] [id number] Repository Date:3023-62-95[address] [address]RT: 10/20/2017 Tertiary NOT GIVENUNK Wall Insurance:SELF PAY [facility] Number: Effective Repository Date:2017-09-27 09/07/2017 RAJ L Primary RAJ L Wall [id number] Insurance:MEDICARE WEAHRYDOB: Community [address] PART A [facility] [id number] Number: Repository [id number]: [phone] [id number] [phone] (HP) Date:2017-09-07 09/07/2017 Secondary RAJ L Michelle Insurance:AETNAPolicy WEAHRYDOB: Community Number: [id number] [facility] [id number] Repository Date:9069-93-72KH [address] [place] [address]YO: 09/07/2017 Tertiary NOT GIVENUNK Michelle Insurance:SELF PAY [facility] Number: Effective Repository Date:2017-09-07 08/03/2017 Raj L Primary Raj L Wall [id number] Insurance:MEDICARE WeahryDOB: Community [address] PART A BPolicy [id number] Number: Repository [address]Tqu: [phone] [id number] [phone] () Date:2017-08-03 08/03/2017 Secondary Raj L Michelle Insurance:AETNAPolicy WeahryDOB: Community Number: [id number] [facility] [id number] Repository Date:5251-79-35QZ [address] [place] [address]WV: 08/03/2017 Tertiary NOT GIVENUNK Michelle Insurance:SELF PAY [facility] Number: Effective Repository Date:2017-08-03
== END ==
PROVIDERS: Family Provider Family Medicine; PCP Family Medicine; Referring Provider Internal Medicine Rheumatology; Visit Provider Internal Medicine Rheumatology
DX: M06.4 Inflammatory polyarthropathy (principal); Z79.899 Other long term (current) drug therapy; M34.9 Systemic sclerosis, unspecified; M79.7 Fibromyalgia; K21.0 Gastro-esophageal reflux disease with esophagitis; I10 Essential (primary) hypertension; C50.911 Malignant neoplasm of unspecified site of right female breast
CPT/HCPCS: 36415; 80053; 85025

== ENCOUNTER → 2018-08-01 09:53 | Outpatient (CLI) | payer MEDICARE, OTHER, SELFPAY ==
--- NOTE | 2018-08-01 12:21 | PFTCOMP ---
COMPLETE PULMONARY FUNCTION TEST INTERPRETATION Brief HPI: Patient is a 73 year old female, currently under the care of myself, who presents to [facility] for complete pulmonary function tests secondary to diagnosis of systemic sclerosis. Respiratory therapist reports good effort and reproducible results. Interpretation: Forced expiration spirometry shows no large airways obstructive ventilatory defect with an FEV1 of 77% predicted. There is no significant bronchodilator response by strict ATS criteria. Spirograms are of good quality and plateau normally. The respiratory flow volume loop shows a normal pattern. Lung volumes by body plethysmography show a decreased total lung capacity at 4.66 L, 78% predicted. All other lung volumes are reduced symmetrically. Diffusion capacity by carbon monoxide is normal at 77% predicted. The airway resistance is elevated. Compared to previous pulmonary function tests from 12/22/2017, there has been no significant change. Impression: Mild restrictive ventilatory defect with no significant change compared to previous.
--- NOTE | 2018-08-01 12:24 | PFTCOMP_ITS ---
COMPLETE PULMONARY FUNCTION TEST INTERPRETATION Brief HPI: Patient is a 73 year old female, currently under the care of myself, who presents to [facility] for complete pulmonary function tests secondary to diagnosis of systemic sclerosis. Respiratory therapist reports good effort and reproducible results. Interpretation: Forced expiration spirometry shows no large airways obstructive ventilatory defect with an FEV1 of 77% predicted. There is no significant bronchodilator r esponse by strict ATS criteria. Spirograms are of good quality and plateau normally. The respiratory flow volume loop shows a normal pattern. Lung volumes by body plethysmography show a decreased total lung capacity at 4.66 L, 78% predicted. All other lung volumes are reduced symmetrically. Diffusion capacity by carbon monoxide is normal at 77% predicted. The airway resistance is elevated. Compared to previous pulmonary function tests from 12/22/2017, there has been no significant change. Impression: Mild restrictive ventilatory defect with no significant change compared to previous.
== END ==
PROVIDERS: Family Provider Family Medicine; PCP Family Medicine; Referring Provider Internal Medicine Critical Care Medicine; Visit Provider Internal Medicine Critical Care Medicine
DX: M34.9 Systemic sclerosis, unspecified (principal); I27.20 Pulmonary hypertension, unspecified
CPT/HCPCS: 94060; 94726; 94729

== ENCOUNTER 2018-08-02 12:35 | Emergency (ER) | payer MEDICARE, OTHER, SELFPAY ==
[2018-08-02 12:38] VITALS: PULSE 84; RESP 16; TEMP 36.2; O2SAT 95; BMI 21.1
--- NOTE | 2018-08-02 13:02 | CT_ITS ---
STUDY: CT BRAIN WITHOUT CONTRAST REASON FOR EXAM: Female, 73 years old. Dizziness. History of breast cancer. RADIATION DOSAGE (If Supplied By Facility): CTDIvol = ( 44.99 ) mGy, DLP = ( 779.24 ) mGycm TECHNIQUE: Transaxial CT imaging of the brain was performed without administration of intravenous contrast material. Individualized dose optimization techniques were used for this CT. COMPARISON: None. FINDINGS: Normal soft tissue structures. Normal calvarium. Normal size ventricles and extra-axial spaces for the patient's age. Normal white matter tracts of the cerebral hemispheres. Normal basal ganglia and thalami. Normal brainstem. Normal cerebellum. There is no intracranial hemorrhage. There are no findings of an acute ischemic infarction. Normal visualized paranasal sinuses. CT/Brain/Head without Contrast IMPRESSION: Normal unenhanced CT scan of the brain. Electronically Signed: Rick Fay MD at 14:06 EST , Service support ,
--- NOTE | 2018-08-02 13:03 | EKG12_ITS ---
Test Reason : DIZZINESS Blood Pressure : / mmHG Vent. Rate : 085 BPM Atrial Rate : 085 BPM P-R Int : 154 ms QRS Dur : 068 ms QT Int : 368 ms P-R-T Axes : 039 -39 055 degrees QTc Int : 437 ms Normal sinus rhythm Left axis deviation Low voltage QRS Nonspecific ST and T wave abnormality Abnormal ECG Confirmed by HONORIO DE PAZ, CIELO ([id number]), fan mail editor JAYNA STRINGER ([id number]) on 08/07/2018 9:43:44 AM Referred By: Johnny Granados Confirmed By:CIELO OLMEDO MD
[2018-08-02 13:23] LABS: Absolute Lymphocyte Count 1.22 X10^3/ul (0.83-4.51); Absolute Neutrophil Count 3.2 X10^3/uL (2.0-7.7); Basophil# 0.06 X10^3/uL; Basophil% 1.2 % (0-1); Eosinophil# 0.11 X10^3/uL; Eosinophils% 2.2 % (0-5); Hematocrit 42.6 % (37-47); Hemoglobin 13.2 g/dl (12.0-15.0); Lymphocyte # 1.22 X10^3/ul (4.0); Lymphocyte % 24.1 % (19-41); Mean Corpuscular Hgb 31.5 pg (27.0-32.0); Mean Corpuscular Volume 101.7 fL (81-99); Mean Platelet Vol. 8.9 fl (6.2-12.0); Monocyte# 0.46 X10^3/uL; Monocyte% 9.1 % (0-10); Neutrophil # 3.21 X10^3/uL (2.7-7.7); Neutrophil % 63.4 % (47-70); POSITIVE COUNT NO; POSITIVE DIFFERENTIAL NO; POSITIVE MORPHOLOGY NO; Platelet Count 208 K/mm3 (150-450); RBC Distribution Width CV 13.1 % (11.6-14.6); Red Blood Count 4.19 M/mm3 (4.2-5.4); White Blood Count 5.1 K/mm3 (4.4-11.0)
[2018-08-02 13:25] VITALS: BP 142/87; BP 147/74; BP 154/83; PULSE 88; PULSE 93; PULSE 96
[2018-08-02] MEDS: 0.9% Normal Saline 1,000 ML 150 ML IV (13:28)
[2018-08-02 13:43] LABS: Anion Gap 7 (5-15); BUN 11 mg/dL (7-18); BUN/Creat Ratio 18.5 RATIO (10-20); Chloride 102 mmol/L (98-107); Creatinine, Serum 0.59 mg/dL (0.55-1.02); EST Glomerular Filtration Rate 105 mL/min (>60); Est Glom Filt Rate - Afr Amer 127 mL/min (>60); Estimated Creatinine Clearance 51.97 ml/min; Glucose 87 mg/dL (74-106); Potassium 3.8 mmol/L (3.5-5.1); Sodium Level 137 mmol/L (136-145)
[2018-08-02 14:57] VITALS: BP 134/79; PULSE 89; RESP 18; O2SAT 99
[2018-08-02 14:57] LABS: Bacteria 0 SEEN /hpf (None Seen); Mucous, Urine 0 SEEN /hpf (<or=2+)
[2018-08-02 15:01] LABS: Color, Urine Yellow (Yellow); Glucose, Dipstick Normal (Normal); Ketone-Dipstick Negative (Negative); Leukocyte Esterase-Dipstick 100 /ul (Negative); Nitrite-Dipstick Negative (Negative); Occult Blood-Urine 250 /ul (Negative); Protein-Dipstick Negative (Negative); Urine Bilirubin Dipstick Negative (Negative); Urine Clarity Sl. Cloudy (Clear); Urine Urobilinogen Normal (Normal); Urine pH 6.5 (5.0 - 8.0)
[2018-08-02 15:08] LABS: Red Blood Cells-Urine 25-50 SEEN /hpf (0-5); Squamous Epithelial Cells - UA 0-5 SEEN /hpf (5-10); White Blood Cells 10-25 SEEN /hpf (0-5)
--- NOTE | 2018-08-02 15:27 | ED.VISSUMM ---
- ER Visit Summary Date of Service: 08/02/18 Chief Complaint: [Dizziness] History of Present Illness: The patient is a 73 F presents to the emergency department complaint of dizziness that she noticed today after waking up. Patient denies any focal weakness. She denies vertiginous symptoms. She denies headache. She denies any new medications. Patient denies slurred speech. Patient initially was seen at urgent care and referred to the emergency department for evaluation. Patient felt comfortable driving despite feeling off balance. Patient states that she has had similar symptoms intermittently for months. She denies any chest pain or shortness of breath. She denies any headache. Patient incidentally states that she has had some dark urine with some follow odor for several months but has not had time to see anybody for it.] Physical Examination: [HEENT-PERRLA, EOMI. Cranial nerves II through XII grossly intact. TMs clear. Mucous membranes moist. No adenopathy. Cardiovascular-regular rate and rhythm without murmur or ectopy Lungs-clear to auscultation, chest wall stable without crepitus or subcu emphysema Abdomen-normoactive bowel sounds, soft, nontender, no rebound or rigidity, no peritoneal signs. Neuro wmaa-muvzyp-yljw and heel corona testing within normal limits, negative Romberg, negative pronator drift, fundi benign. NIH stroke scale 0. Extremities-intact ?4, normal range of motion, normal pulses, atraumatic] Test Results: [CT scan of the brain without contrast was normal. EKG obtained shows sinus rhythm with a ventricular rate of 85 bpm with some nonspecific ST changes. CBC with differential showed white count 5.1, hemoglobin 13, hematocrit 43, platelets 208. Chemistries unremarkable. Troponin is less than 0.015. Orthostatic vital signs were negative. Urinalysis obtained showed 100 leukocyte esterase, 10-25 WBCs, and 25-50 RBCs. No bacteria seen. Nitrates negative.] Emergency Department Course and Treatment: [Patient was given a dose of Bactrim in the emergency department. Urine was sent for culture.] Patient's orthostatic vital signs were negative in the emergency department and she felt well ambulating in the emergency department and states symptoms have significantly improved. Treatment Plan: [Patient will be treated with Bactrim. Patient advised to follow-up with her primary care physician within next 3-5 days to get her culture results. Patient advised to push fluids.] Disposition: [Discharged home in stable condition] Impression: [Dizziness-etiology uncertain UTI] This note was generated with [email or web address] dictation software. It may contain incorrect words, spelling, and punctuation that were not noted in review of the chart prior to signing ED Disposition - Plan for ED Patient: Referrals: Jack Lindo DO [Primary Care Provider] -
--- NOTE | 2018-08-02 15:34 | ED.DCSUM_ITS ---
- ER Visit Summary Date of Service: 08/02/18 Chief Complaint: [Dizziness] History of Present Illness: The patient is a 73 F presents to the emergency department complaint of dizziness that she noticed today after waking up. Patient denies any focal weakness. She denies vertiginous symptoms. She denies headache. She denies any new medications. Patient denies slurred speech. Patient initially was seen at urgent care and referred to the emergency department for evaluation. Patient felt comfortable driving despite feeling off balance. Patient states that she has had similar symptoms intermittently for months. She denies any chest pain or shortness of breath. She denies any headache. Patient incidentally states that she has had some dark urine with some follow odor for several months but has not had time to see anybody for it.] Physical Examination: [HEENT-PERRLA, EOMI. Cranial nerves II through XII grossly intact. TMs clear. Mucous membranes moist. No adenopathy. Cardiovascular-regular rate and rhythm without murmur or ectopy Lungs-clear to auscultation, chest wall stable without crepitus or subcu emphysema Abdomen-normoactive bowel sounds, soft, nontender, no rebound or rigidity, no peritoneal signs. Neuro cmxa-orjyhi-gxfm and heel corona testing within normal limits, negative Romberg, negative pronator drift, fundi benign. NIH stroke scale 0. Extremities-intact ?4, normal range of motion, normal pulses, atraumatic] Test Results: [CT scan of the brain without contrast was normal. EKG obtained shows sinus rhythm with a ventricular rate of 85 bpm with some nonspecific ST changes. CBC with differential showed white count 5.1, hemoglobin 13, hematocrit 43, platelets 208. Chemistries unremarkable. Troponin is less than 0.015. Orthostatic vital signs were negative. Urinalysis obtained showed 100 leukocyte esterase, 10-25 WBCs, and 25-50 RBCs. No bacteria seen. Nitrates negative.] Emergency Department Course and Treatment: [Patient was given a dose of Bactrim in the emergency department. Urine was sent for culture.] Patient's orthostatic vital signs were negative in the emergency department and she felt well ambulating in the emergency department and states symptoms have significantly improved. Treatment Plan: [Patient will be treated with Bactrim. Patient advised to follow-up with her primary care physician within next 3-5 days to get her culture results. Patient advised to push fluids.] Disposition: [Discharged home in stable condition] Impression: [Dizziness-etiology uncertain UTI] This note was generated with [employer] dictation software. It may contain incorrect words, spelling, and punctuation that were not noted in review of the chart prior to signing ED Disposition - Plan for ED Patient: Referrals: Jack Lindo DO [Primary Care Provider] -
--- NOTE | 2018-08-02 15:34 | ED.DEP ---
ED Disposition - Plan for ED Patient: Instructions: ED Dizziness UKO, ED UTI Cystitis Female Prescriptions: Smz/Tmp Ds [Bactrim Ds] 1 tab PO BID #10 tab Referrals: Jack Lindo DO [Primary Care Provider] - 3-5 Days
--- NOTE | 2018-08-02 15:44 | ED.DEP ---
ED Disposition - Plan for ED Patient: Instructions: ED Dizziness UKO, ED UTI Cystitis Female Prescriptions: Fluconazole [Diflucan] 150 mg PO DAILY #1 tab Smz/Tmp Ds [Bactrim Ds] 1 tab PO BID #10 tab Referrals: Jack Lindo DO [Primary Care Provider] - 3-5 Days
[2018-08-02] MEDS: Smz/Tmp Ds Tablet 1 TABLET PO (15:45)
[2018-08-02 15:46] VITALS: BP 144/73; PULSE 81; RESP 18; O2SAT 99
== END 2018-08-02 15:47 | disposition home or self-care (01) ==
LOC: ED 13:08
PROVIDERS: Emergency Provider Emergency Medicine; Family Provider Family Medicine; PCP Family Medicine
DX: R42 Dizziness and giddiness (principal); N39.0 Urinary tract infection, site not specified; I10 Essential (primary) hypertension; M34.9 Systemic sclerosis, unspecified; I27.20 Pulmonary hypertension, unspecified; M79.7 Fibromyalgia; Z85.3 Personal history of malignant neoplasm of breast; Z79.82 Long term (current) use of aspirin; Z79.899 Other long term (current) drug therapy
CPT/HCPCS: 70450; 80048; 81001; 84484; 85025; 87086; 93005; 96360; 96361; 99285; J7030; A4216

== ENCOUNTER → 2018-10-19 | Outpatient (CLI) | payer MEDICARE, OTHER, SELFPAY ==
[2018-08-08 10:10] VITALS: BMI 20.5
[2018-10-19 14:06] LABS: ALB/GLOB Ratio 1.2 RATIO (0.9-2.4); AST(SGOT) 25 U/L (15-37); Alanine Aminotransfer ALT/SGPT 26 U/L (13-56); Albumin, Serum 4.1 g/dL (3.2-5.0); Alkaline Phosphatase 96 U/L (45-117); Anion Gap 8 (5-15); BUN 17 mg/dL (7-18); BUN/Creat Ratio 21.9 RATIO (10-20); Calcium,Total 9.5 mg/dL (8.5-10.1); Chloride 104 mmol/L (98-107); Creatinine, Serum 0.78 mg/dL (0.55-1.02); EST Glomerular Filtration Rate 77 mL/min (>60); Est Glom Filt Rate - Afr Amer 93 mL/min (>60); Globulin 3.3 g/dL (2.2-4.2); Glucose 87 mg/dL (74-106); Potassium 4.4 mmol/L (3.5-5.1); Protein, Total 7.4 g/dL (6.4-8.2); Sodium Level 140 mmol/L (136-145)
[2018-10-19 17:49] LABS: Absolute Lymphocyte Count 1.74 X10^3/ul (0.83-4.51); Absolute Neutrophil Count 4.3 X10^3/uL (2.0-7.7); Basophil% 1.5 % (0-1); Eosinophil# 0.12 X10^3/uL; Eosinophils% 1.8 % (0-5); Hematocrit 39.1 % (37-47); Hemoglobin 12.7 g/dl (12.0-15.0); Lymphocyte # 1.74 X10^3/ul (4.0); Lymphocyte % 25.5 % (19-41); Mean Corp Hgb Conc 32.5 g/gl (32-36); Mean Corpuscular Hgb 30.6 pg (27.0-32.0); Mean Corpuscular Volume 94.2 fL (81-99); Mean Platelet Vol. 10.3 fl (6.2-12.0); Monocyte# 0.53 X10^3/uL; Monocyte% 7.8 % (0-10); Neutrophil # 4.33 X10^3/uL (2.7-7.7); Neutrophil % 63.4 % (47-70); Platelet Count 240 K/mm3 (150-450); RBC Distribution Width CV 13.3 % (11.6-14.6); Red Blood Count 4.15 M/mm3 (4.2-5.4); White Blood Count 6.8 K/mm3 (4.4-11.0)
[2018-10-19 17:52] LABS: POSITIVE COUNT NO; POSITIVE DIFFERENTIAL NO; POSITIVE MORPHOLOGY NO
== END | disposition home or self-care (01) ==
LOC: MTLAB 13:13
PROVIDERS: Family Provider Family Medicine; PCP Family Medicine; Referring Provider Internal Medicine Rheumatology; Visit Provider Internal Medicine Rheumatology
DX: M06.4 Inflammatory polyarthropathy (principal); Z79.899 Other long term (current) drug therapy; M34.9 Systemic sclerosis, unspecified; M79.7 Fibromyalgia; K21.0 Gastro-esophageal reflux disease with esophagitis; I10 Essential (primary) hypertension; C50.911 Malignant neoplasm of unspecified site of right female breast
CPT/HCPCS: 36415; 80053; 85025

== ENCOUNTER → 2019-01-29 | Outpatient (CLI) | payer MEDICARE, OTHER, SELFPAY ==
[2018-08-08 10:10] VITALS: BMI 20.5
[2019-01-29 13:57] LABS: Absolute Lymphocyte Count 1.29 X10^3/uL (0.83-4.51); Absolute Neutrophil Count 4.7 X10^3/uL (2.0-7.7); Basophil# 0.13 X10^3/uL; Basophil% 1.9 % (0-1); Eosinophil# 0.16 X10^3/uL; Eosinophils% 2.3 % (0-5); Hematocrit 39.3 % (37-47); Hemoglobin 12.6 g/dL (12.0-15.0); Lymphocyte # 1.29 X10^3/ul (4.0); Lymphocyte % 18.6 % (19-41); Mean Corp Hgb Conc 32.1 g/dL (32-36); Mean Corpuscular Volume 96.6 fL (81-99); Mean Platelet Vol. 10.1 fl (6.2-12.0); Monocyte# 0.62 X10^3/uL; Monocyte% 8.9 % (0-10); NRBC Flagged by Analyzer 0 % (0-5); Neutrophil # 4.72 X10^3/uL (2.7-7.7); Neutrophil % 68.2 % (47-70); Platelet Count 213 K/mm3 (150-450); RBC Distribution Width CV 13.7 % (11.6-14.6); RBC Distribution Width SD 48.5 fl (35.1-43.9); Red Blood Count 4.07 M/mm3 (4.2-5.4); White Blood Count 6.9 K/mm3 (4.4-11.0)
[2019-01-29 14:10] LABS: ALB/GLOB Ratio 1.2 RATIO (0.9-2.4); AST(SGOT) 18 U/L (15-37); Alanine Aminotransfer ALT/SGPT 19 U/L (13-56); Alkaline Phosphatase 85 U/L (45-117); Anion Gap 9 (5-15); BUN 13 mg/dL (7-18); BUN/Creat Ratio 17.3 RATIO (10-20); Chloride 102 mmol/L (98-107); Creatinine, Serum 0.75 mg/dL (0.55-1.02); EST Glomerular Filtration Rate 80 mL/min (>60); Est Glom Filt Rate - Afr Amer 96 mL/min (>60); Globulin 3.3 g/dL (2.2-4.2); Glucose 86 mg/dL (74-106); Potassium 4.4 mmol/L (3.5-5.1); Protein, Total 7.3 g/dL (6.4-8.2); Sodium Level 139 mmol/L (136-145)
== END | disposition home or self-care (01) ==
LOC: MTLAB 11:47
PROVIDERS: Family Provider Family Medicine; PCP Family Medicine; Referring Provider Internal Medicine Rheumatology; Visit Provider Internal Medicine Rheumatology
DX: M06.4 Inflammatory polyarthropathy (principal); Z79.899 Other long term (current) drug therapy; M34.9 Systemic sclerosis, unspecified; M79.7 Fibromyalgia
CPT/HCPCS: 36415; 80053; 85025

== ENCOUNTER → 2019-04-18 14:12 | Outpatient (CLI) | payer MEDICARE, OTHER, SELFPAY ==
[2018-08-08 10:10] VITALS: BMI 20.5
[2019-04-18 16:02] LABS: Absolute Lymphocyte Count 0.82 X10^3/uL (0.83-4.51); Basophil# 0.13 X10^3/uL; Basophil% 2.3 % (0-1); Eosinophil# 0.15 X10^3/uL; Eosinophils% 2.6 % (0-5); Hematocrit 40.1 % (37-47); Hemoglobin 12.9 g/dL (12.0-15.0); Lymphocyte # 0.82 X10^3/ul (4.0); Lymphocyte % 14.4 % (19-41); Mean Corp Hgb Conc 32.2 g/dL (32-36); Mean Corpuscular Hgb 31.4 pg (27.0-32.0); Mean Corpuscular Volume 97.6 fL (81-99); Mean Platelet Vol. 9.7 fl (6.2-12.0); Monocyte# 0.63 X10^3/uL; NRBC Flagged by Analyzer 0 % (0-5); Neutrophil # 3.96 X10^3/uL (2.7-7.7); Neutrophil % 69.3 % (47-70); Platelet Count 225 K/mm3 (150-450); RBC Distribution Width CV 13.5 % (11.6-14.6); RBC Distribution Width SD 48.4 fl (35.1-43.9); Red Blood Count 4.11 M/mm3 (4.2-5.4); White Blood Count 5.7 K/mm3 (4.4-11.0)
[2019-04-18 16:19] LABS: ALB/GLOB Ratio 1.1 RATIO (0.9-2.4); AST(SGOT) 33 U/L (15-37); Alanine Aminotransfer ALT/SGPT 27 U/L (13-56); Albumin, Serum 3.8 g/dL (3.2-5.0); Alkaline Phosphatase 102 U/L (45-117); Anion Gap 5 (5-15); BUN 15 mg/dL (7-18); BUN/Creat Ratio 22.3 RATIO (10-20); Calcium,Total 9.3 mg/dL (8.5-10.1); Chloride 104 mmol/L (98-107); Creatinine, Serum 0.67 mg/dL (0.55-1.02); EST Glomerular Filtration Rate 91 mL/min (>60); Est Glom Filt Rate - Afr Amer 110 mL/min (>60); Globulin 3.4 g/dL (2.2-4.2); Glucose 92 mg/dL (74-106); Potassium 4.3 mmol/L (3.5-5.1); Protein, Total 7.2 g/dL (6.4-8.2); Sodium Level 137 mmol/L (136-145)
== END ==
PROVIDERS: Family Provider Family Medicine; PCP Family Medicine; Referring Provider Internal Medicine Rheumatology; Visit Provider Internal Medicine Rheumatology
DX: M06.4 Inflammatory polyarthropathy (principal); Z79.899 Other long term (current) drug therapy; M34.9 Systemic sclerosis, unspecified; M79.7 Fibromyalgia; K21.0 Gastro-esophageal reflux disease with esophagitis; I10 Essential (primary) hypertension; C50.911 Malignant neoplasm of unspecified site of right female breast
CPT/HCPCS: 36415; 80053; 85025

== ENCOUNTER → 2019-05-02 12:18 | Outpatient (CLI) | payer MEDICARE, OTHER, SELFPAY ==
[2018-08-08 10:10] VITALS: BMI 20.5
[2019-05-02 12:41] VITALS: PULSE 105; PULSE 107; PULSE 109; PULSE 110; PULSE 111; PULSE 112; PULSE 85; PULSE 86; O2SAT 95; O2SAT 96; O2SAT 97; O2SAT 98
--- NOTE | 2019-05-03 13:21 | PCM.PSN.6M ---
PSN 6 Minute Walk Test - 6 Minute Walk Test 6 Minute Walk Test: 6 Minute Walk Test PSN:6-Minute Walk Test Start: 05/02/19 12:41 Freq: Status: Active Protocol: RESP.6MINW Document 05/02/19 12:41 GEETHA (Rec: 05/02/19 12:46 GEETHA [id number]) 6 Minute Walk Test Date Performed 05/02/19 Time Performed 12:30 Height 5 ft 8 in Weight: 140 lb Weight in Pounds 140.[address]: Johnny Granados Assistive device used: None Pre-test Oxygen Delivery Method Room Air Pulse Ox (%) 97 Pulse Rate (60-100 beats/min) 86 Dyspnea Russel Scale (0-10) 0 Exertion Russel Scale (6-20) 6 1st minute Oxygen Delivery Method Room Air Pulse Ox (%) 96 Pulse Rate (60-100 beats/min) 105 H 2nd minute Oxygen Delivery Method Room Air Pulse Ox (%) 96 Pulse Rate (60-100 beats/min) 110 H 3rd minute Oxygen Delivery Method Room Air Pulse Ox (%) 97 Pulse Rate (60-100 beats/min) 109 H 4th minute Oxygen Delivery Method Room Air Pulse Ox (%) 95 Pulse Rate (60-100 beats/min) 107 H 5th minute Oxygen Delivery Method Room Air Pulse Ox (%) 98 Pulse Rate (60-100 beats/min) 111 H 6th minute Oxygen Delivery Method Room Air Pulse Ox (%) 97 Pulse Rate (60-100 beats/min) 112 H Dyspnea Russel Scale (0-10) 1 Exertion Russel Scale (6-20) 11 Post-test Oxygen Delivery Method Room Air Pulse Ox (%) 98 Pulse Rate (60-100 beats/min) 85 Full Laps Walked 20 Partial Lap, Number of Tiles Walked 13 Total Distance Walked (ft) 1193 - Interpretation Interpretation: The patient ambulated 1193 feet over the course of 6 minutes beginning on room air without assistive devices or breaks. Pretesting oxygen saturation was noted to be 97% on room air. With ambulation, the brunilda oxygen saturation was 95%. There was no significant exertional oxygen desaturation. - Recommendations Recommendations: There is no indication for the use of supplemental oxygen at this time.
== END ==
PROVIDERS: Family Provider Family Medicine; PCP Family Medicine; Referring Provider Internal Medicine Critical Care Medicine; Visit Provider Internal Medicine Critical Care Medicine
DX: M34.9 Systemic sclerosis, unspecified (principal); I27.20 Pulmonary hypertension, unspecified
CPT/HCPCS: 94618

== ENCOUNTER → 2019-05-07 09:58 | Outpatient (CLI) | payer MEDICARE, OTHER, SELFPAY ==
[2018-08-08 10:10] VITALS: BMI 20.5
--- NOTE | 2019-05-07 14:12 | PFTCOMP_ITS ---
COMPLETE PULMONARY FUNCTION TEST INTERPRETATION Brief HPI: Patient is a 74 year old female, currently under the care of myself, who presents to [facility] for complete pulmonary function tests secondary to diagnosis of pulmonary hypertension. Respiratory therapist reports good effort and reproducible results. Interpretation: Forced expiration spirometry shows no large airways obstructive ventilatory defect with an FEV1 of 79% predicted. There is no significant bronchodilator response by strict ATS criteria. Spirograms are of good quality and plateau normally. The respiratory flow volume loop shows a normal pattern. Lung volumes by body plethysmography show a normal total lung capacity at 5.28 L, 95% predicted. All other lung volumes are within normal limits. Diffusion capacity by carbon monoxide is at the lower limit of normal at 71% predicted. The airway resistance is elevated. Compared to previous pulmonary function tests from 08/01/2018, there is no significant change by strict ATS criteria. Impression: Grossly normal pulmonary function testing, but diffusion is at the lower limit of normal and consistent with testing on 12/22/2017
== END ==
PROVIDERS: Family Provider Family Medicine; PCP Family Medicine; Referring Provider Internal Medicine Critical Care Medicine; Visit Provider Internal Medicine Critical Care Medicine
DX: I27.20 Pulmonary hypertension, unspecified (principal); M34.9 Systemic sclerosis, unspecified
CPT/HCPCS: 94060; 94726; 94729

== ENCOUNTER 2019-07-28 09:06 | Outpatient (RCR) | payer MEDICARE, OTHER, SELFPAY ==
[2018-08-08 10:10] VITALS: BMI 20.5
[2019-07-28 10:22] LABS: Absolute Lymphocyte Count 1.25 X10^3/uL (0.83-4.51); Absolute Neutrophil Count 5.6 X10^3/uL (2.0-7.7); Basophil# 0.14 X10^3/uL; Basophil% 1.8 % (0-1); Eosinophil# 0.18 X10^3/uL; Eosinophils% 2.4 % (0-5); Hematocrit 40.1 % (37-47); Hemoglobin 12.7 g/dL (12.0-15.0); Lymphocyte # 1.25 X10^3/ul (4.0); Lymphocyte % 16.4 % (19-41); Mean Corp Hgb Conc 31.7 g/dL (32-36); Mean Corpuscular Hgb 30.2 pg (27.0-32.0); Mean Corpuscular Volume 95.2 fL (81-99); Mean Platelet Vol. 9.9 fl (6.2-12.0); Monocyte% 6.5 % (0-10); NRBC Flagged by Analyzer 0 % (0-5); Neutrophil # 5.55 X10^3/uL (2.7-7.7); Neutrophil % 72.6 % (47-70); Platelet Count 261 K/mm3 (150-450); RBC Distribution Width CV 13.5 % (11.6-14.6); RBC Distribution Width SD 46.5 fl (35.1-43.9); Red Blood Count 4.21 M/mm3 (4.2-5.4); White Blood Count 7.6 K/mm3 (4.4-11.0)
[2019-07-28 11:06] LABS: ALB/GLOB Ratio 1.1 RATIO (0.9-2.4); AST(SGOT) 17 U/L (15-37); Alanine Aminotransfer ALT/SGPT 19 U/L (13-56); Albumin, Serum 3.7 g/dL (3.2-5.0); Alkaline Phosphatase 100 U/L (45-117); Anion Gap 4 (5-15); BUN 15 mg/dL (7-18); BUN/Creat Ratio 19.9 RATIO (10-20); Calcium,Total 9.4 mg/dL (8.5-10.1); Chloride 104 mmol/L (98-107); Creatinine, Serum 0.75 mg/dL (0.55-1.02); EST Glomerular Filtration Rate 80 mL/min (>60); Est Glom Filt Rate - Afr Amer 96 mL/min (>60); Globulin 3.3 g/dL (2.2-4.2); Glucose 113 mg/dL (74-106); Potassium 4.5 mmol/L (3.5-5.1); Sodium Level 138 mmol/L (136-145)
== END 2019-07-28 18:00 | disposition home or self-care (01) ==
LOC: LAB 09:06
PROVIDERS: PCP Family Medicine; Referring Provider Internal Medicine Rheumatology; Visit Provider Internal Medicine Rheumatology
DX: M06.4 Inflammatory polyarthropathy (principal); M34.9 Systemic sclerosis, unspecified; M79.7 Fibromyalgia; Z79.899 Other long term (current) drug therapy
CPT/HCPCS: 36415; 80053; 85025

== ENCOUNTER 2019-09-10 14:36 | Outpatient (RCR) | payer MEDICARE, OTHER, SELFPAY ==
[2018-08-08 10:10] VITALS: BMI 20.5
[2019-09-10 17:44] LABS: Absolute Lymphocyte Count 1.27 X10^3/uL (0.83-4.51); Absolute Neutrophil Count 4.6 X10^3/uL (2.0-7.7); Basophil# 0.13 X10^3/uL; Basophil% 1.9 % (0-1); Eosinophil# 0.23 X10^3/uL; Eosinophils% 3.3 % (0-5); Hematocrit 42.4 % (37-47); Hemoglobin 13.1 g/dL (12.0-15.0); Lymphocyte # 1.27 X10^3/ul (4.0); Lymphocyte % 18.5 % (19-41); Mean Corp Hgb Conc 30.9 g/dL (32-36); Mean Corpuscular Hgb 29.7 pg (27.0-32.0); Mean Corpuscular Volume 96.1 fL (81-99); Mean Platelet Vol. 9.6 fl (6.2-12.0); Monocyte# 0.58 X10^3/uL; Monocyte% 8.4 % (0-10); NRBC Flagged by Analyzer 0 % (0-5); Neutrophil # 4.64 X10^3/uL (2.7-7.7); Neutrophil % 67.6 % (47-70); Platelet Count 230 K/mm3 (150-450); RBC Distribution Width CV 13.6 % (11.6-14.6); Red Blood Count 4.41 M/mm3 (4.2-5.4); White Blood Count 6.9 K/mm3 (4.4-11.0)
[2019-09-10 17:56] LABS: ALB/GLOB Ratio 1.1 RATIO (0.9-2.4); AST(SGOT) 21 U/L (15-37); Alanine Aminotransfer ALT/SGPT 19 U/L (13-56); Albumin, Serum 3.9 g/dL (3.2-5.0); Alkaline Phosphatase 101 U/L (45-117); Anion Gap 6 (5-15); BUN 9 mg/dL (7-18); BUN/Creat Ratio 13.5 RATIO (10-20); Chloride 106 mmol/L (98-107); Creatinine, Serum 0.66 mg/dL (0.55-1.02); EST Glomerular Filtration Rate 92 mL/min (>60); Est Glom Filt Rate - Afr Amer 111 mL/min (>60); Globulin 3.4 g/dL (2.2-4.2); Glucose 74 mg/dL (74-106); Potassium 3.9 mmol/L (3.5-5.1); Protein, Total 7.3 g/dL (6.4-8.2); Sodium Level 140 mmol/L (136-145)
== END 2019-09-10 18:00 | disposition home or self-care (01) ==
LOC: MTLAB 14:36
PROVIDERS: PCP Family Medicine; Referring Provider Internal Medicine Rheumatology; Visit Provider Internal Medicine Rheumatology
DX: M06.4 Inflammatory polyarthropathy (principal); M34.9 Systemic sclerosis, unspecified; M79.7 Fibromyalgia; Z79.899 Other long term (current) drug therapy
CPT/HCPCS: 36415; 80053; 85025

== ENCOUNTER 2019-12-13 10:48 | Outpatient (RCR) | payer MEDICARE, OTHER, SELFPAY ==
[2018-08-08 10:10] VITALS: BMI 20.5
[2019-10-05 09:59] VITALS: BMI 20.5
[2019-12-13 13:05] LABS: Absolute Lymphocyte Count 1.35 X10^3/uL (0.83-4.51); Absolute Neutrophil Count 4.1 X10^3/uL (2.0-7.7); Basophil# 0.13 X10^3/uL; Eosinophil# 0.17 X10^3/uL; Eosinophils% 2.6 % (0-5); Hematocrit 42.2 % (37-47); Hemoglobin 13.2 g/dL (12.0-15.0); Lymphocyte # 1.35 X10^3/ul (4.0); Mean Corp Hgb Conc 31.3 g/dL (32-36); Mean Corpuscular Hgb 30.2 pg (27.0-32.0); Mean Corpuscular Volume 96.6 fL (81-99); Mean Platelet Vol. 9.8 fl (6.2-12.0); Monocyte# 0.62 X10^3/uL; Monocyte% 9.6 % (0-10); NRBC Flagged by Analyzer 0 % (0-5); Neutrophil # 4.14 X10^3/uL (2.7-7.7); Neutrophil % 64.5 % (47-70); Platelet Count 248 K/mm3 (150-450); RBC Distribution Width CV 13.4 % (11.6-14.6); RBC Distribution Width SD 47.7 fl (35.1-43.9); Red Blood Count 4.37 M/mm3 (4.2-5.4); White Blood Count 6.4 K/mm3 (4.4-11.0)
[2019-12-13 13:30] LABS: ALB/GLOB Ratio 1.1 RATIO (0.9-2.4); AST(SGOT) 19 U/L (15-37); Alanine Aminotransfer ALT/SGPT 18 U/L (13-56); Albumin, Serum 3.8 g/dL (3.2-5.0); Alkaline Phosphatase 83 U/L (45-117); Anion Gap 5 (5-15); BUN 11 mg/dL (7-18); BUN/Creat Ratio 17.6 RATIO (10-20); Calcium,Total 9.2 mg/dL (8.5-10.1); Chloride 105 mmol/L (98-107); Creatinine, Serum 0.62 mg/dL (0.55-1.02); EST Glomerular Filtration Rate 99 mL/min (>60); Est Glom Filt Rate - Afr Amer 120 mL/min (>60); Globulin 3.5 g/dL (2.2-4.2); Glucose 89 mg/dL (74-106); Potassium 4.2 mmol/L (3.5-5.1); Protein, Total 7.3 g/dL (6.4-8.2); Sodium Level 139 mmol/L (136-145)
== END 2019-12-13 18:00 | disposition home or self-care (01) ==
LOC: MTLAB 10:48
PROVIDERS: PCP Family Medicine; Referring Provider Internal Medicine Rheumatology; Visit Provider Internal Medicine Rheumatology
DX: M06.4 Inflammatory polyarthropathy (principal); Z79.899 Other long term (current) drug therapy; M34.9 Systemic sclerosis, unspecified; M79.7 Fibromyalgia
CPT/HCPCS: 36415; 80053; 85025

== ENCOUNTER → 2020-03-14 11:28 | Outpatient (CLI) | payer MEDICARE, OTHER, SELFPAY ==
[2019-10-05 09:59] VITALS: BMI 20.5
[2020-03-14 15:50] LABS: Absolute Lymphocyte Count 1.79 X10^3/uL (0.83-4.51); Absolute Neutrophil Count 4.7 X10^3/uL (2.0-7.7); Basophil# 0.18 X10^3/uL; Basophil% 2.4 % (0-1); Eosinophil# 0.36 X10^3/uL; Eosinophils% 4.7 % (0-5); Hematocrit 41.9 % (37-47); Hemoglobin 13.2 g/dL (12.0-15.0); Lymphocyte # 1.79 X10^3/ul (4.0); Lymphocyte % 23.5 % (19-41); Mean Corp Hgb Conc 31.5 g/dL (32-36); Mean Corpuscular Hgb 30.5 pg (27.0-32.0); Mean Corpuscular Volume 96.8 fL (81-99); Monocyte# 0.56 X10^3/uL; Monocyte% 7.3 % (0-10); NRBC Flagged by Analyzer 0 % (0-5); Neutrophil # 4.72 X10^3/uL (2.7-7.7); Neutrophil % 61.8 % (47-70); Platelet Count 276 K/mm3 (150-450); RBC Distribution Width CV 13.1 % (11.6-14.6); RBC Distribution Width SD 46.3 fl (35.1-43.9); Red Blood Count 4.33 M/mm3 (4.2-5.4); White Blood Count 7.6 K/mm3 (4.4-11.0)
[2020-03-14 16:09] LABS: AST(SGOT) 19 U/L (15-37); Alanine Aminotransfer ALT/SGPT 18 U/L (13-56); Albumin, Serum 3.7 g/dL (3.2-5.0); Alkaline Phosphatase 88 U/L (45-117); Anion Gap 5 (5-15); BUN 11 mg/dL (7-18); BUN/Creat Ratio 16.4 RATIO (10-20); Calcium,Total 9.1 mg/dL (8.5-10.1); Chloride 104 mmol/L (98-107); Creatinine, Serum 0.67 mg/dL (0.55-1.02); EST Glomerular Filtration Rate 91 mL/min (>60); Est Glom Filt Rate - Afr Amer 110 mL/min (>60); Globulin 3.6 g/dL (2.2-4.2); Glucose 77 mg/dL (74-106); Potassium 4.1 mmol/L (3.5-5.1); Protein, Total 7.3 g/dL (6.4-8.2); Sodium Level 139 mmol/L (136-145)
== END ==
PROVIDERS: PCP Family Medicine; Referring Provider Internal Medicine Rheumatology; Visit Provider Internal Medicine Rheumatology
DX: M06.4 Inflammatory polyarthropathy (principal); Z79.899 Other long term (current) drug therapy; M34.9 Systemic sclerosis, unspecified; M79.7 Fibromyalgia; K21.0 Gastro-esophageal reflux disease with esophagitis; I10 Essential (primary) hypertension; I27.20 Pulmonary hypertension, unspecified; C50.911 Malignant neoplasm of unspecified site of right female breast
CPT/HCPCS: 36415; 80053; 85025

== ENCOUNTER → 2020-04-30 09:37 | Outpatient (CLI) | payer MEDICARE, OTHER, SELFPAY ==
[2019-10-05 09:59] VITALS: BMI 20.5
[2020-04-30 13:15] LABS: Cholesterol 210 mg/dL (200); High Density Lipoprotein 52 mg/dL; Thyroid Stim Hormone (TSH) 0.64 uIU/mL (0.358-3.74); Triglycerides 161 mg/dL; Very Low Density Lipoprotein 32 mg/dL (5-40)
== END ==
PROVIDERS: PCP Family Medicine; Referring Provider Family Medicine; Visit Provider Family Medicine
DX: E04.2 Nontoxic multinodular goiter (principal); E78.5 Hyperlipidemia, unspecified
CPT/HCPCS: 36415; 80061; 84443

== ENCOUNTER → 2020-06-06 11:04 | Outpatient (CLI) | payer MEDICARE, OTHER, SELFPAY ==
[2019-10-05 09:59] VITALS: BMI 20.5
[2020-06-06 11:58] LABS: Absolute Lymphocyte Count 1.36 X10^3/uL (0.83-4.51); Absolute Neutrophil Count 5.2 X10^3/uL (2.0-7.7); Basophil# 0.14 X10^3/uL; Basophil% 1.9 % (0-1); Eosinophil# 0.13 X10^3/uL; Eosinophils% 1.8 % (0-5); Hematocrit 42.2 % (37-47); Hemoglobin 13.3 g/dL (12.0-15.0); Lymphocyte # 1.36 X10^3/ul (4.0); Lymphocyte % 18.5 % (19-41); Mean Corp Hgb Conc 31.5 g/dL (32-36); Mean Corpuscular Hgb 30.1 pg (27.0-32.0); Mean Corpuscular Volume 95.5 fL (81-99); Mean Platelet Vol. 9.7 fl (6.2-12.0); Monocyte# 0.52 X10^3/uL; Monocyte% 7.1 % (0-10); NRBC Flagged by Analyzer 0 % (0-5); Neutrophil # 5.19 X10^3/uL (2.7-7.7); Neutrophil % 70.4 % (47-70); Platelet Count 279 K/mm3 (150-450); RBC Distribution Width CV 13.5 % (11.6-14.6); RBC Distribution Width SD 47.1 fl (35.1-43.9); Red Blood Count 4.42 M/mm3 (4.2-5.4); White Blood Count 7.4 K/mm3 (4.4-11.0)
[2020-06-06 12:44] LABS: ALB/GLOB Ratio 1.1 RATIO (0.9-2.4); AST(SGOT) 21 U/L (15-37); Alanine Aminotransfer ALT/SGPT 23 U/L (13-56); Albumin, Serum 3.9 g/dL (3.2-5.0); Alkaline Phosphatase 102 U/L (45-117); Anion Gap 5 (5-15); BUN 9 mg/dL (7-18); BUN/Creat Ratio 13.2 RATIO (10-20); Chloride 106 mmol/L (98-107); Creatinine, Serum 0.68 mg/dL (0.55-1.02); EST Glomerular Filtration Rate 89 mL/min (>60); Est Glom Filt Rate - Afr Amer 108 mL/min (>60); Globulin 3.4 g/dL (2.2-4.2); Glucose 75 mg/dL (74-106); Protein, Total 7.3 g/dL (6.4-8.2); Sodium Level 140 mmol/L (136-145)
== END ==
PROVIDERS: PCP Family Medicine; Referring Provider Internal Medicine Rheumatology; Visit Provider Internal Medicine Rheumatology
DX: M06.4 Inflammatory polyarthropathy (principal); Z79.899 Other long term (current) drug therapy; M34.9 Systemic sclerosis, unspecified; M79.7 Fibromyalgia; K21.00 Gastro-esophageal reflux disease with esophagitis, without bleeding; I10 Essential (primary) hypertension; C50.911 Malignant neoplasm of unspecified site of right female breast; I27.20 Pulmonary hypertension, unspecified
CPT/HCPCS: 36415; 80053; 85025

== ENCOUNTER → 2020-08-28 10:47 | Outpatient (CLI) | payer MEDICARE, OTHER, SELFPAY ==
[2019-10-05 09:59] VITALS: BMI 20.5
[2020-08-28 12:10] LABS: Absolute Lymphocyte Count 0.85 X10^3/uL (0.83-4.51); Absolute Neutrophil Count 5.1 X10^3/uL (2.0-7.7); Basophil# 0.11 X10^3/uL; Basophil% 1.7 % (0-1); Eosinophil# 0.09 X10^3/uL; Eosinophils% 1.4 % (0-5); Hematocrit 41.5 % (37-47); Hemoglobin 12.8 g/dL (12.0-15.0); Lymphocyte # 0.85 X10^3/ul (4.0); Lymphocyte % 12.9 % (19-41); Mean Corp Hgb Conc 30.8 g/dL (32-36); Mean Corpuscular Hgb 29.8 pg (27.0-32.0); Mean Corpuscular Volume 96.5 fL (81-99); Mean Platelet Vol. 9.9 fl (6.2-12.0); Monocyte# 0.48 X10^3/uL; Monocyte% 7.3 % (0-10); NRBC Flagged by Analyzer 0 % (0-5); Neutrophil # 5.06 X10^3/uL (2.7-7.7); Neutrophil % 76.4 % (47-70); Platelet Count 231 K/mm3 (150-450); RBC Distribution Width CV 13.5 % (11.6-14.6); RBC Distribution Width SD 47.7 fl (35.1-43.9); White Blood Count 6.6 K/mm3 (4.4-11.0)
[2020-08-28 12:33] LABS: ALB/GLOB Ratio 1.1 RATIO (0.9-2.4); AST(SGOT) 21 U/L (15-37); Alanine Aminotransfer ALT/SGPT 23 U/L (13-56); Albumin, Serum 3.7 g/dL (3.2-5.0); Alkaline Phosphatase 110 U/L (45-117); Anion Gap 6 (5-15); BUN 9 mg/dL (7-18); BUN/Creat Ratio 13.5 RATIO (10-20); Calcium,Total 8.9 mg/dL (8.5-10.1); Chloride 106 mmol/L (98-107); Creatinine, Serum 0.67 mg/dL (0.55-1.02); EST Glomerular Filtration Rate 91 mL/min (>60); Est Glom Filt Rate - Afr Amer 111 mL/min (>60); Globulin 3.3 g/dL (2.2-4.2); Glucose 103 mg/dL (74-106); Potassium 4.2 mmol/L (3.5-5.1); Sodium Level 140 mmol/L (136-145)
== END ==
PROVIDERS: PCP Family Medicine; Referring Provider Internal Medicine Rheumatology; Visit Provider Internal Medicine Rheumatology
DX: M06.4 Inflammatory polyarthropathy (principal); Z79.899 Other long term (current) drug therapy; M34.9 Systemic sclerosis, unspecified; M79.7 Fibromyalgia; K21.00 Gastro-esophageal reflux disease with esophagitis, without bleeding; I10 Essential (primary) hypertension; C50.911 Malignant neoplasm of unspecified site of right female breast; I27.20 Pulmonary hypertension, unspecified
CPT/HCPCS: 36415; 80053; 85025

== ENCOUNTER → 2020-09-11 11:05 | Outpatient (CLI) | payer MEDICARE, OTHER, SELFPAY ==
[2019-10-05 09:59] VITALS: BMI 20.5
[2020-09-11 11:15] VITALS: PULSE 60; PULSE 75; PULSE 80; PULSE 81; PULSE 83; PULSE 88; PULSE 89; O2SAT 100; O2SAT 88; O2SAT 89; O2SAT 92; O2SAT 93; O2SAT 94; O2SAT 99
--- NOTE | 2020-09-11 11:56 | CPS ---
Pt has raynauds and obtaining pulse ox accuracy is questionable throughout test. Ear probe was placed on pt for monitoring. At times during test pt saturation would drop drastically and then jump up quickly. These episodes occured multiple times. Pt was placed on 1 lpm at the 4 min [place] for a saturation of 88% that was not coming up. However, prior to this sudden drop pt was in the 90's. Pt stated she felt fine and denied any change in her breathing. She did not feel S.O.B. Post 6 min recording time pt was placed back on room air and walked for 1 1/2 laps. Pt's saturation stayed above 90%.
--- NOTE | 2020-09-12 05:45 | WT_ITS ---
PSN 6 Minute Walk Test - 6 Minute Walk Test 6 Minute Walk Test: 6 Minute Walk Test PSN:6-Minute Walk Test Start: 09/11/20 11:49 Freq: Status: Active Protocol: RESP.6MINW Document 09/11/20 11:15 [facility] (Rec: 09/11/20 12:07 [facility] [id number]) 6 Minute Walk Test Date Performed 09/11/20 Time Performed 11:15 Height 5 ft 10 in Weight: 62.596 kg Weight in Pounds 138.[address]: Dr Granados Assistive device used: None Pre-test Oxygen Delivery Method Room Air Pulse Ox (%) 99 Pulse Rate (60-100 beats/min) 60 Dyspnea Russel Scale (0-10) 0 Exertion Russel Scale (6-20) 6 1st minute Oxygen Delivery Method Room Air Pulse Ox (%) 93 Pulse Rate (60-100 beats/min) 89 2nd minute Oxygen Delivery Method Room Air Pulse Ox (%) 93 Pulse Rate (60-100 beats/min) 83 3rd minute Oxygen Delivery Method Room Air Pulse Ox (%) 89 Pulse Rate (60-100 beats/min) 88 4th minute Oxygen Delivery Method Room Air Pulse Ox (%) 88 Pulse Rate (60-100 beats/min) 83 Dyspnea Russel Scale (0-10) 0 5th minute Oxygen Flow Rate (L/min) (L/min) 1 Oxygen Delivery Method Nasal Cannula Pulse Ox (%) 92 Pulse Rate (60-100 beats/min) 80 6th minute Oxygen Flow Rate (L/min) (L/min) 1 Oxygen Delivery Method Nasal Cannula Pulse Ox (%) 94 Pulse Rate (60-100 beats/min) 81 Dyspnea Russel Scale (0-10) 0 Exertion Russel Scale (6-20) 6 Post-test Oxygen Delivery Method Room Air Pulse Ox (%) 100 Pulse Rate (60-100 beats/min) 75 Dyspnea Russel Scale (0-10) 0 Exertion Russel Scale (6-20) 6 Full Laps Walked 10 Partial Lap, Number of Tiles Walked 0 Total Distance Walked (ft) 590 09/11/20 11:56 Cardiopulmonary Services by Maye Almendarez Pt has raynauds and obtaining pulse ox accuracy is questionable throughout test. Ear probe was placed on pt for monitoring. At times during test pt saturation wo uld drop drastically and then jump up quickly. These episodes occured multiple times. Pt was placed on 1 lpm at the 4 min [place] for a saturation of 88% that was not coming up. However, prior to this sudden drop pt was in the 90's. Pt stated she felt fine and denied any change in her breathing. She did not feel S.O.B. Post 6 min recording time pt was placed back on room air and walked for 1 1/2 laps. Pt's saturation stayed above 90%. Initialized on 09/11/20 11:56 - END OF NOTE - Interpretation Interpretation: The patient was able to ambulate 590 feet over the course of 6 minutes. Respiratory did report poor waveform on oximetry. Patient reportedly did desaturate to 88% in the fourth minute and was placed on 1 L nasal cannula and was able to complete testing without significant tachycardia. These findings are consistent with a respiratory limitation exercise tolerance. - Recommendations Recommendations: No supplemental oxygen is required at rest. Patient may require supplemental oxygen with exertion, but accuracy of saturations are unclear. Clinical correlation is advised. Consider transcutaneous oxygen saturations with future testing.
== END ==
PROVIDERS: PCP Family Medicine; Referring Provider Internal Medicine Critical Care Medicine; Visit Provider Internal Medicine Critical Care Medicine
DX: M34.9 Systemic sclerosis, unspecified (principal)
CPT/HCPCS: 94618

== ENCOUNTER → 2020-09-17 10:44 | Outpatient (CLI) | payer MEDICARE, OTHER, SELFPAY ==
[2019-10-05 09:59] VITALS: BMI 20.5
--- NOTE | 2020-09-18 10:01 | PFT ---
INTRODUCTION: The patient is a 75-year-old female that presents for pulmonary function studies secondary to a diagnosis of shortness of breath. Respiratory therapy reports good patient effort. Bronchodilators were used during testing. INTERPRETATION: Forced expiration spirometry demonstrates no evidence of a large airways obstructive ventilatory defect. There was no significant response to aerosolized bronchodilators. Spirograms are of good quality and plateau normally. Body plethysmography was performed and reveals a decreased TLC to 4.92 L, 82% of predicted, indicative of a mild restrictive ventilatory impairment. Diffusing capacity by single breath CO is mildly reduced at 79% of predicted. When compared to previous pulmonary function studies, dated April 2019, there has been improvement in the patient's FVC, FEV1 and diffusing capacity. IMPRESSION: Mild restrictive ventilatory impairment with symmetric reduction in diffusing capacity. There has been significant improvement in the patient's PFTs since 2018, as noted above.
== END ==
PROVIDERS: PCP Family Medicine; Referring Provider Internal Medicine Critical Care Medicine; Visit Provider Internal Medicine Critical Care Medicine
DX: M34.9 Systemic sclerosis, unspecified (principal)
CPT/HCPCS: 94060; 94726; 94729

== ENCOUNTER → 2020-11-27 12:23 | Outpatient (CLI) | payer MEDICARE, OTHER, SELFPAY ==
[2020-11-04 10:22] VITALS: BMI 20.4
[2020-11-27 15:07] LABS: Absolute Lymphocyte Count 1.65 X10^3/uL (0.83-4.51); Absolute Neutrophil Count 4.8 X10^3/uL (2.0-7.7); Basophil# 0.14 X10^3/uL; Basophil% 1.9 % (0-1); Eosinophil# 0.17 X10^3/uL; Eosinophils% 2.3 % (0-5); Hematocrit 41.4 % (37-47); Hemoglobin 13.2 g/dL (12.0-15.0); Lymphocyte # 1.65 X10^3/ul (0.83-4.51); Lymphocyte % 22.5 % (19-41); Mean Corp Hgb Conc 31.9 g/dL (32-36); Mean Corpuscular Volume 94.1 fL (81-99); Mean Platelet Vol. 9.5 fl (6.2-12.0); Monocyte# 0.58 X10^3/uL; Monocyte% 7.9 % (0-10); NRBC Flagged by Analyzer 0 % (0-5); Neutrophil # 4.78 X10^3/uL (2.7-7.7); Neutrophil % 65.3 % (47-70); Platelet Count 247 K/mm3 (150-450); RBC Distribution Width CV 13.2 % (11.6-14.6); RBC Distribution Width SD 46.2 fl (35.1-43.9); White Blood Count 7.3 K/mm3 (4.4-11.0)
[2020-11-27 15:20] LABS: ALB/GLOB Ratio 1.2 RATIO (0.9-2.4); AST(SGOT) 23 U/L (15-37); Alanine Aminotransfer ALT/SGPT 28 U/L (13-56); Alkaline Phosphatase 96 U/L (45-117); Anion Gap 4 (5-15); BUN 13 mg/dL (7-18); BUN/Creat Ratio 20.4 RATIO (10-20); Calcium,Total 9.2 mg/dL (8.5-10.1); Chloride 103 mmol/L (98-107); Creatinine, Serum 0.64 mg/dL (0.55-1.02); EST Glomerular Filtration Rate 96 mL/min (>60); Est Glom Filt Rate - Afr Amer 116 mL/min (>60); Globulin 3.3 g/dL (2.2-4.2); Glucose 95 mg/dL (74-106); Potassium 4.1 mmol/L (3.5-5.1); Protein, Total 7.3 g/dL (6.4-8.2); Sodium Level 139 mmol/L (136-145)
== END ==
PROVIDERS: PCP Family Medicine; Referring Provider Internal Medicine Rheumatology; Visit Provider Internal Medicine Rheumatology
DX: M06.4 Inflammatory polyarthropathy (principal); Z79.899 Other long term (current) drug therapy; M34.9 Systemic sclerosis, unspecified; M79.7 Fibromyalgia; K21.00 Gastro-esophageal reflux disease with esophagitis, without bleeding; I10 Essential (primary) hypertension; C50.911 Malignant neoplasm of unspecified site of right female breast; I27.20 Pulmonary hypertension, unspecified
CPT/HCPCS: 36415; 80053; 85025

== ENCOUNTER → 2021-03-03 13:55 | Outpatient (CLI) | payer MEDICARE, OTHER, SELFPAY ==
[2021-03-03 15:12] LABS: Absolute Lymphocyte Count 1.23 X10^3/uL (0.83-4.51); Absolute Neutrophil Count 4.7 X10^3/uL (2.0-7.7); Basophil# 0.15 X10^3/uL; Basophil% 2.1 % (0-1); Eosinophil# 0.39 X10^3/uL; Eosinophils% 5.5 % (0-5); Hemoglobin 12.9 g/dL (12.0-15.0); Lymphocyte # 1.23 X10^3/ul (0.83-4.51); Lymphocyte % 17.4 % (19-41); Mean Corp Hgb Conc 32.3 g/dL (32-36); Mean Corpuscular Hgb 30.2 pg (27.0-32.0); Mean Corpuscular Volume 93.7 fL (81-99); Mean Platelet Vol. 9.6 fl (6.2-12.0); Monocyte# 0.56 X10^3/uL; Monocyte% 7.9 % (0-10); NRBC Flagged by Analyzer 0 % (0-5); Neutrophil # 4.69 X10^3/uL (2.7-7.7); Neutrophil % 66.7 % (47-70); Platelet Count 279 K/mm3 (150-450); RBC Distribution Width CV 13.6 % (11.6-14.6); RBC Distribution Width SD 46.4 fl (35.1-43.9); Red Blood Count 4.27 M/mm3 (4.2-5.4); White Blood Count 7.1 K/mm3 (4.4-11.0)
[2021-03-03 15:35] LABS: ALB/GLOB Ratio 0.9 RATIO (0.9-2.4); AST(SGOT) 25 U/L (15-37); Alanine Aminotransfer ALT/SGPT 26 U/L (13-56); Albumin, Serum 3.5 g/dL (3.2-5.0); Alkaline Phosphatase 115 U/L (45-117); Anion Gap 2 (5-15); BUN 12 mg/dL (7-18); BUN/Creat Ratio 21.1 RATIO (10-20); Calcium,Total 8.9 mg/dL (8.5-10.1); Chloride 104 mmol/L (98-107); Creatinine, Serum 0.57 mg/dL (0.55-1.02); EST Glomerular Filtration Rate 109 mL/min (>60); Est Glom Filt Rate - Afr Amer 132 mL/min (>60); Globulin 3.9 g/dL (2.2-4.2); Glucose 98 mg/dL (74-106); Potassium 4.2 mmol/L (3.5-5.1); Protein, Total 7.4 g/dL (6.4-8.2); Sodium Level 136 mmol/L (136-145)
== END ==
PROVIDERS: PCP Family Medicine; Referring Provider Internal Medicine Rheumatology; Visit Provider Internal Medicine Rheumatology
DX: M06.4 Inflammatory polyarthropathy (principal); Z79.899 Other long term (current) drug therapy; M34.9 Systemic sclerosis, unspecified; M79.7 Fibromyalgia; K21.00 Gastro-esophageal reflux disease with esophagitis, without bleeding; I10 Essential (primary) hypertension; C50.911 Malignant neoplasm of unspecified site of right female breast; I27.20 Pulmonary hypertension, unspecified
CPT/HCPCS: 36415; 80053; 85025

== ENCOUNTER → 2021-10-19 | Outpatient (CLI) | payer MEDICARE, OTHER, SELFPAY ==
--- NOTE | 2021-10-19 12:31 | PFTCOMP_ITS ---
COMPLETE PULMONARY FUNCTION TEST INTERPRETATION Brief HPI: Patient is a 76 year old female, currently under the care of myself, who presents to [facility] for complete pulmonary function tests secondary to diagnosis of pulmonary hypertension. Respiratory therapist reports good effort and reproducible results. Interpretation: Forced expiration spirometry shows no large airways obstructive ventilatory defect with an FEV1 of 75% predicted. There is no significant bronchodilator response by strict ATS criteria. Spirograms are of good quality and plateau normally. The respiratory flow volume loop shows a normal pattern. Lung volumes by body plethysmography show a normal total lung capacity at 6.45 L, 78% predicted. All other lung volumes are within normal limits. Diffusion capacity by carbon monoxide is normal at 83% predicted. The airway resistance is normal. Compared to previous pulmonary function tests from 09/17/2020, there has been no significant change. Impression: Grossly normal pulmonary function test with no significant change compared to previous study
== END | disposition home or self-care (01) ==
LOC: PSN 09:17
PROVIDERS: PCP Family Medicine; Referring Provider Internal Medicine Critical Care Medicine; Visit Provider Internal Medicine Critical Care Medicine
DX: I27.20 Pulmonary hypertension, unspecified (principal); M34.9 Systemic sclerosis, unspecified
CPT/HCPCS: 94060; 94726; 94729

== ENCOUNTER → 2021-10-20 | Outpatient (CLI) | payer MEDICARE, OTHER, SELFPAY ==
[2021-10-20 12:46] VITALS: PULSE 100; PULSE 72; PULSE 76; PULSE 81; PULSE 84; PULSE 95; PULSE 97; PULSE 99; O2SAT 90; O2SAT 92; O2SAT 93; O2SAT 95; O2SAT 96; O2SAT 97; O2SAT 98; O2SAT 99
--- NOTE | 2021-10-20 12:48 | CPS ---
Patient has Raynaud's. Pulse oximeter picking up well at rest and for the first minute of testing. Pulse ox didn't seem to be picking up as well during the 3rd and 4th minutes due to patient's Raynauds and her hand hanging down for walking. Had patient keep hand up and flat and started to get better readings after the 4th minute and for the rest of testing.
--- NOTE | 2021-10-20 13:34 | PCM.PSN.6M ---
PSN 6 Minute Walk Test 6 Minute Walk Test 6 Minute Walk Test: 6 Minute Walk Test PSN:6-Minute Walk Test Start: 10/20/21 12:45 Freq: Status: Active Protocol: RESP.6MINW Document 10/20/21 12:46 IANRYAN (Rec: 10/20/21 12:50 FINESSERAJANIRYAN [id number]) 6 Minute Walk Test Date Performed 10/20/21 Time Performed 12:30 Height 5 ft 10 in Weight: 63.503 kg Weight in Pounds 140.[address]: Johnny Granados Assistive device used: None Pre-test Oxygen Delivery Method Room Air Pulse Ox (%) 98 Pulse Rate (60-100 beats/min) 76 Dyspnea Russel Scale (0-10) 0 Exertion Russel Scale (6-20) 6 1st minute Oxygen Delivery Method Room Air Pulse Ox (%) 96 Pulse Rate (60-100 beats/min) 81 2nd minute Oxygen Delivery Method Room Air Pulse Ox (%) 93 Pulse Rate (60-100 beats/min) 84 3rd minute Oxygen Delivery Method Room Air Pulse Ox (%) 92 Pulse Rate (60-100 beats/min) 100 4th minute Oxygen Delivery Method Room Air Pulse Ox (%) 90 Pulse Rate (60-100 beats/min) 97 5th minute Oxygen Delivery Method Room Air Pulse Ox (%) 95 Pulse Rate (60-100 beats/min) 99 6th minute Oxygen Delivery Method Room Air Pulse Ox (%) 97 Pulse Rate (60-100 beats/min) 95 Dyspnea Russel Scale (0-10) 1 Exertion Russel Scale (6-20) 11 Post-test Oxygen Delivery Method Room Air Pulse Ox (%) 99 Pulse Rate (60-100 beats/min) 72 Full Laps Walked 18 Partial Lap, Number of Tiles Walked 0 Total Distance Walked (ft) 1062 10/20/21 12:48 Cardiopulmonary Services by Lisa Bartholomew Patient has Raynaud's. Pulse oximeter picking up well at rest and for the first minute of testing. Pulse ox didn't seem to be picking up as well during the 3rd and 4th minutes due to patient's Raynauds and her hand hanging down for walking. Had patient keep hand up and flat and started to get better readings after the 4th minute and for the rest of testing. Initialized on 10/20/21 12:48 - END OF NOTE Interpretation Interpretation: Testing somewhat complicated by Raynaud's disease. Patient was able to ambulate 1062 feet over the course of 6 minutes on room air with no assistive devices or breaks. The patient did have significant desaturation from a baseline of 98% to as low as 90%, but no significant tachycardia was noted. These findings are consistent with a respiratory limitation exercise tolerance. Recommendations Recommendations: No supplemental oxygen is indicated at this time. However, patient will need to be followed closely given level of desaturation.
== END | disposition home or self-care (01) ==
LOC: PSN 12:19
PROVIDERS: PCP Family Medicine; Referring Provider Internal Medicine Critical Care Medicine; Visit Provider Internal Medicine Critical Care Medicine
DX: I27.20 Pulmonary hypertension, unspecified (principal); M34.9 Systemic sclerosis, unspecified
CPT/HCPCS: 94618

== ENCOUNTER 2021-10-22 12:03 | Emergency (ER) | payer MEDICARE, OTHER, SELFPAY ==
[2021-10-22 12:04] VITALS: TEMP 36.9; BMI 21.2
[2021-10-22 12:07] VITALS: BP 163/81; PULSE 75; RESP 12
--- NOTE | 2021-10-22 12:22 | CT_ITS ---
STUDY: CT BRAIN WITHOUT CONTRAST REASON FOR EXAM: Female, 76 years old. Head trauma RADIATION DOSAGE (If Supplied By Facility): CTDIvol = ( 44.99 ) mGy, DLP = ( 796.11 ) mGycm TECHNIQUE: Transaxial CT imaging of the brain was performed without administration of intravenous contrast material. Individualized dose optimization techniques were used for this CT. COMPARISON: Comparison is made with prior study of 08/02/2018. FINDINGS: Normal soft tissue structures. Normal calvarium. There is mild cerebral atrophy with widening of the extra-axial spaces and ventricular dilatation. Stable focal encephalomalacia in the left frontal lobe as well as the posterior left parietal lobe. Normal basal ganglia and thalami. Normal brainstem. Normal cerebellum. There is no intracranial hemorrhage. There are no findings of an acute ischemic infarction. Normal visualized paranasal sinuses. CT/Brain/Head without Contrast IMPRESSION: Chronic involutional changes of the brain. Electronically Signed: Rick Fay MD at 13:02 EDT ,
--- NOTE | 2021-10-22 12:24 | ED.VIS.FALL ---
HPI HPI - Fall History of Present Illness Chief Complaint: Fall Informant: patient Occured/Mechanism Occurred: Today Mechanism/Context: Yes same level fall and Yes trip Usually ambulates: Without assistance Pain/Injury Pain Location: head Current Severity: Mild Maximum Severity: Mild Associated Symptoms Associated Symptoms: Negative for Parasthesias, Weakness, Loss of function, Inability to ambulate, Loss of consciousness and Amnesia Narrative Narrative: 76-year-old female history of breast cancer and hypertension. Takes daily aspirin. Said she has a history of scleroderma and CAD and shuffles when she walks. She tripped over her shoe fell backwards and struck her head on the tile on cement floor. No LOC. She is posterior head pain. No vomiting. She had nausea that resolved. Denies any other injuries. Prior similar symptoms: No Recent Illness/Hospitalization: No PFSH [facility] Medical History (Updated 10/22/21 @ 12:[address] Adonis Trevino MD) Anxiety Cancer of central portion of 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 Cough Fibromyalgia HTN (hypertension) Papilloma of breast Pulmonary emphysema Pulmonary HTN Scleroderma Home Medications acetaminophen 650 mg tablet,extended release 650 mg PO QDAY tab 11/10/17 [History Last Taken Unknown] ascorbic acid (vitamin C) 1,000 mg tablet 1 g PO QDAY tab 11/10/17 [History Last Taken Unknown] aspirin 81 mg tablet,delayed release 81 mg PO QDAY 11/10/17 [History Last Taken Unknown] calcium carbonate 600 mg calcium (1,500 mg) tablet 1,200 mg PO QDAY tab 11/10/17 [History Last Taken Unknown] cholecalciferol (vitamin D3) 25 mcg (1,000 unit) capsule 1,000 unit PO QDAY 11/10/17 [History Last Taken Unknown] duloxetine 30 mg capsule,delayed release 30 mg PO QDAY 11/10/17 [History Last Taken Unknown] lansoprazole 30 mg capsule,delayed release 30 mg PO QDAY 90 Days #90 cap 11/10/17 [History Last Taken Unknown] methotrexate sodium 2.5 mg tablet 20 mg PO QWEEK tab 11/10/17 [History Last Taken Unknown] multivitamin 1 tab PO QAM 11/10/17 [History Last Taken Unknown] timolol 0.5 % eye drops 1 drp OPHTHALMIC BID 11/10/17 [History Last Taken Unknown] anastrozole 1 mg tablet 1 mg PO ONCE 11/16/17 [History Last Taken Unknown] folic acid 1 mg tablet 2 mg PO QDAY tab 01/25/18 [History Last Taken Unknown] glucosamine 750 bb-fjktdnsmfpj-rct no1 625 mg-C 30 mg-shant 1 mg tablet 1 tab PO BID tab 01/25/18 [History Last Taken Unknown] fluconazole 150 mg PO DAILY #1 tab 08/02/18 [Rx Last Taken Unknown] mecobalamin (vitamin B12) 1,000 mcg chewable tablet 3,000 mcg PO DAILY tab 10/04/19 [History Last Taken Unknown] zinc acetate 25 mg (zinc) capsule 25 mg PO DAILY 11/04/20 [History Last Taken Unknown] ibuprofen 800 mg tablet See Rx Instructions PO QDAY PRN tab 05/20/21 [History Last Taken Unknown] linaclotide 290 mcg capsule 290 mcg PO QAM PRN 05/20/21 [History Last Taken Unknown] Allergy/AdvReac Type Severity Reaction Status Date / Time gluten Allergy Upset Verified 05/20/21 11:17 Stomach adhesive tape AdvReac Mild Rash Verified 05/20/21 11:17 Family History Father Sarcoma Mother Hypertension Rheumatoid arthritis Brother Hypertension Seizures Disability, developmental Dysphagia Surgical History History of laparoscopic cholecystectomy History of parotidectomy History of right mastectomy melnoma left chest Social History Smoking Status: Former smoker Tobacco: How many years used: 40 how long ago did patient quit smokin, 0.5p/d second hand exposure: Yes alcohol intake: current alcohol intake frequency: a few times a month Alcohol type: wine substance use type: does not use ROS ROS ED ROS Narrative Nausea resolved. Review of Systems ROS Unobtainable: Denies due to encephalopathy Constitutional Constitutional ED: Denies fever(s) Eyes Eyes: Denies change in vision ENT ENT ED: Denies ear pain Cardiovascular Cardiovascular: Denies chest pain Respiratory/Chest Respiratory/Chest: Denies cough or dyspnea Gastrointestinal Gastrointestinal: Reports nausea; Denies abdominal pain, diarrhea or vomiting Genitourinary Genitourinary ED: Denies dysuria Musculoskeletal Musculoskeletal: Denies myalgias Integumentary Denies rash Neurologic Neurologic: Reports headache(s) Psychiatric Psychiatric: Denies depression Endocrine Endocrinology: Denies polyuria Hematologic/Lymphatic Hematologic/Lymphatic: Denies easy bruising Allergic/Immunologic Allergic/Immunologic ED: Denies urticaria EXAM Physical Exam Narrative Exam Narrative: 76-year-old female no acute distress. Vital signs are stable afebrile. H EENT exam pupils round reactive light no facial trauma. Back of her posterior scalp is a small hematoma. No laceration. C-spine nontender. Trachea midline. Normal range of motion to her neck. Lungs clear to auscultation. Heart regular rate and rhythm. Chest wall nontender. Ribs nontender. Back and spine nontender. Abdomen soft and nontender. Pelvic girdle intact. Moving all 4 extremities. She has scleroderma changes of her skin on her hands. Dorsi plantarflexion intact. 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 Neurologically she is awake and alert. She remembers the fall. She has no focal motor deficits. Const Vital Signs: 10/22/21 12:04 10/22/21 12:07 Temperature 98.4 F Temperature Source Temporal Pulse Rate 75 Respiratory Rate 12 Blood Pressure 163/81 H Blood Pressure Mean 108 Positive well nourished and well developed; Negative for obese, cachectic, contractures or unkempt General Appearance ED: well developed and NAD; Negative for unkempt, cachectic or contractures Nutritional Appearance: Negative for cachectic or obese HEENT Reports normocephalic HEENT Narrative: Small posterior scalp hematoma. trauma and tenderness; Negative for atraumatic Eyes PERRL and EOMs intact bilaterally General Eye ED: Negative for pale conjunctiva or scleral icterus Neck full ROM, no lymphadenopathy and supple General: Negative for tenderness Chest Wall inspection of chest normal and palpation of chest normal Resp normal respiratory effort and clear to auscultation bilaterally Auscultation: Negative for rales, rhonchi or wheezes Cardio regular rate, regular rhythm, S1 normal heart sound, S2 normal heart sound and no murmurs GI non-tender, non-distended and no masses Auscultation: normoactive bowel sounds Palpation: soft; Negative for guarding or rebound tenderness present Back/Spine no CVA tenderness General Back: Negative for CVA tenderness Cervical Spine: Negative for cervical spine tenderness Thoracic Spine / Upper Back: Negative for thoracic spinal tenderness Lumbar Spine / Lower Back: Negative for lumbar spinal tenderness Extremity normal to inspection and no joint enlargement; Negative for full ROM or normal capillary refill Extremity Narrative: History of scleroderma. Neuro oriented x3, moves all extremities and no focal motor deficits [place] Coma Scale: document GCS findings Spontaneous Obeys Commands Oriented 15 Sensorium / Orientation: alert, oriented to person, oriented to place and oriented to time; Negative for orientation impaired, confused, lethargic or stuporous Motor Exam: strength 5/5 throughout Psych mental status grossly normal and thought process normal Appearance: Negative for unkempt Skin Lesions: no lesions and No lesion noted Rashes: no rashes and No rashes noted Trauma: Negative for abrasion or laceration MDM MDM MDM Narrative Medical decision making narrative: 76-year-old female has a head injury. Fell from standing position after tripping and hitting her head on a cement tile surface. CAT scan to be obtained. Otherwise exam benign and no other injuries noted. Radiography Diagnostic Testing: Clinical Impression(s) from Imaging Studies Brain CT 10/22/21 12:22 IMPRESSION: Chronic involutional changes of the brain. Electronically Signed: Rick Fay MD at 13:02 EDT , CAT scan the brain without contrast interpreted by me shows no acute abnormality. Prior to disposition awaiting the radiologist formal interpretation. There is no signs of acute bleed or skull fracture. Repeat exam patient doing well at 1:05 PM. CAT scan was negative by the radiologist and she will be discharged home. Discharge Plan Triage Chief Complaint: Fall ED Provider: Adonis Trevino Dx/Rx/DC Orders Clinical Impression: Fall, Closed head injury, Hx of scleroderma Instructions: ED Head Injury (Adult) Prescriptions: No Action acetaminophen [Tylenol 8 Hour] 650 mg tablet extended release 650 mg PO QDAY RF: 0 aspirin [Adult Aspirin Regimen] 81 mg tablet,delayed release (DR/EC) 81 mg PO QDAY RF: 0 calcium carbonate [Calcium 600] 600 mg calcium (1,500 mg) tablet 1,200 mg PO QDAY RF: 0 duloxetine 30 mg capsule,delayed release(DR/EC) 30 mg PO QDAY RF: 0 lansoprazole 30 mg capsule,delayed release(DR/EC) 30 mg PO QDAY 90 Days Qty: 90 RF: 0 methotrexate sodium 2.5 mg tablet 20 mg PO QWEEK RF: 0 timolol 0.5 % drops 1 drp OPHTHALMIC BID RF: 0 ascorbic acid (vitamin C) [Vitamin C With Carri Hips] 1,000 mg tablet 1 g PO QDAY RF: 0 cholecalciferol (vitamin D3) 1,000 unit capsule 1,000 unit PO QDAY RF: 0 multivitamin [Daily Multiple] tablet 1 tab PO QAM RF: 0 anastrozole [Arimidex] 1 mg tablet 1 mg PO ONCE RF: 0 folic acid 1 mg tablet 2 mg PO QDAY RF: 0 glucosamine 750 [id number]-ugs no1 625 mg-C 30 mg-shant 1 mg tablet [id number] mg tablet 1 tab PO BID RF: 0 ibuprofen 800 mg tablet See Rx Instructions PO QDAY PRNRF: 0 B12 Active 1,000 mcg tablet,chewable 3,000 mcg PO DAILY RF: 0 Galzin 25 mg (zinc) capsule 25 mg PO DAILY RF: 0 Linzess 290 mcg capsule 290 mcg PO QAM PRNRF: 0 fluconazole 150 MG tablet 150 mg PO DAILY Qty: 1 RF: 0 Primary Care Provider: Rosario Gaona Referrals: Rosario Gaona MD [Primary Care Provider] - 3-5 Days if not improving Activity Restrictions/Additional Instructions: Ice to the back of your scalp. Tylenol for pain. Hold your aspirin next several days you may restart on Tuesday. Return if intractable vomiting, severe headache or feeling worse. You will be sore from the fall. Disposition Disposition: Home, Self Care
[2021-10-22 13:23] VITALS: BP 138/70
== END 2021-10-22 13:23 | disposition home or self-care (01) ==
PROVIDERS: Emergency Provider Emergency Medicine; PCP Family Medicine; Visit Provider Emergency Medicine
DX: S00.03XA Contusion of scalp, initial encounter (principal); M34.9 Systemic sclerosis, unspecified; I27.20 Pulmonary hypertension, unspecified; C50.919 Malignant neoplasm of unspecified site of unspecified female breast; W18.09XA Striking against other object with subsequent fall, initial encounter; I10 Essential (primary) hypertension; Z79.82 Long term (current) use of aspirin; I25.10 Atherosclerotic heart disease of native coronary artery without angina pectoris; F41.9 Anxiety disorder, unspecified; M79.7 Fibromyalgia; Z79.899 Other long term (current) drug therapy; Z87.891 Personal history of nicotine dependence
CPT/HCPCS: 70450; 99285

== ENCOUNTER → 2022-10-07 | Outpatient (CLI) | payer MEDICARE, SELFPAY ==
[2022-10-07 12:13] VITALS: PULSE 106; PULSE 108; PULSE 113; PULSE 82; PULSE 84; PULSE 97; O2SAT 96; O2SAT 98; O2SAT 99
--- NOTE | 2022-10-07 14:30 | PCM.PSN.6M ---
PSN 6 Minute Walk Test 6 Minute Walk Test 6 Minute Walk Test: 6 Minute Walk Test PSN:6-Minute Walk Test Start: 10/07/22 12:13 Freq: Status: Active Protocol: RESP.6MINW Document 10/07/22 12:13 GEETHA (Rec: 10/07/22 12:22 GEETHA [id number]) 6 Minute Walk Test Date Performed 10/07/22 Time Performed 11:15 Height 5 ft 7 in Weight: 61.235 kg Weight in Pounds 135.[address]: Johnny Granados Assistive device used: None Pre-test Oxygen Delivery Method Room Air Pulse Ox (%) 99 Pulse Rate (60-100 beats/min) 84 Dyspnea Russel Scale (0-10) 0 Exertion Russel Scale (6-20) 6 1st minute Oxygen Delivery Method Room Air Pulse Ox (%) 98 Pulse Rate (60-100 beats/min) 97 2nd minute Oxygen Delivery Method Room Air Pulse Ox (%) 98 Pulse Rate (60-100 beats/min) 113 H 3rd minute Oxygen Delivery Method Room Air Pulse Ox (%) 96 Pulse Rate (60-100 beats/min) 108 H 4th minute Oxygen Delivery Method Room Air Pulse Ox (%) 98 Pulse Rate (60-100 beats/min) 108 H 5th minute Oxygen Delivery Method Room Air Pulse Ox (%) 96 Pulse Rate (60-100 beats/min) 108 H 6th minute Oxygen Delivery Method Room Air Pulse Ox (%) 98 Pulse Rate (60-100 beats/min) 106 H Dyspnea Russel Scale (0-10) 2 Exertion Russel Scale (6-20) 12 Post-test Oxygen Delivery Method Room Air Pulse Ox (%) 98 Pulse Rate (60-100 beats/min) 82 Full Laps Walked 19 Partial Lap, Number of Tiles Walked 30 Total Distance Walked (ft) 1151 Interpretation Interpretation: The patient was able to ambulate 1151 feet over the course of 6 minutes on room air with no assistive devices or breaks. The patient experienced no significant desaturation, but did have a significant elevation in heart rate with a peak of 113 bpm. These findings are consistent with a cardiovascular limitation exercise tolerance. Recommendations Recommendations: No supplemental oxygen is indicated at this time.
== END | disposition home or self-care (01) ==
LOC: PSN 11:16
PROVIDERS: PCP Family Medicine; Referring Provider Internal Medicine Critical Care Medicine; Visit Provider Internal Medicine Critical Care Medicine
DX: I27.20 Pulmonary hypertension, unspecified (principal); M34.9 Systemic sclerosis, unspecified
CPT/HCPCS: 94618

== ENCOUNTER → 2022-10-11 | Outpatient (CLI) | payer MEDICARE, SELFPAY ==
--- NOTE | 2022-10-12 07:16 | PFT ---
INTRODUCTION: The patient is a 77-year-old female that presents for pulmonary function studies secondary to a diagnosis of pulmonary hypertension. Respiratory therapy reported good patient effort. Bronchodilators were used during testing. INTERPRETATION: Forced expiration spirometry demonstrates no evidence of a large airways obstructive ventilatory defect. There was no significant response to aerosolized bronchodilators. Spirograms are of good quality and plateau normally. Body plethysmography was performed and revealed lung volumes to be within normal limits. Diffusing capacity by single breath CO was also within normal limits. IMPRESSION: Grossly normal pulmonary function studies.
== END | disposition home or self-care (01) ==
LOC: PSN 13:07
PROVIDERS: PCP Family Medicine; Visit Provider Internal Medicine Critical Care Medicine
DX: I27.20 Pulmonary hypertension, unspecified (principal); M34.9 Systemic sclerosis, unspecified
CPT/HCPCS: 94060; 94726; 94729

== ENCOUNTER 2022-11-09 12:28 | Day surgery (SDC) | payer MEDICARE, SELFPAY ==
--- NOTE | 2022-11-09 12:30 | HP_ITS ---
Intake Vital Signs 10/05/22 10:53 Height 5 ft 10 in Weight: 146 lb BMI 20.9 BP 119/77 Blood Pressure Location Rt brachial Position Sitting Pulse 76 Pulse Oximetry (%) 96 Oxygen Delivery Method room air Intake Visit Reasons: Consult Allergies gluten Allergy (Verified 10/05/22 10:51) Upset Stomach adhesive tape Adverse Reaction (Mild, Verified 10/05/22 10:51) Rash Medications acetaminophen 650 mg tablet,extended release (Tylenol 8 Hour) 650 mg PO QDAY 11/10/17 [History Confirmed 10/05/22] aspirin 81 mg tablet,delayed release (Adult Aspirin Regimen) 81 mg PO QDAY 11/10/17 [History Confirmed 10/05/22] calcium carbonate 600 mg calcium (1,500 mg) tablet (Calcium) 1,200 mg PO QDAY 11/10/17 [History Confirmed 10/05/22] cholecalciferol (vitamin D3) 25 mcg (1,000 unit) capsule 1,000 unit PO QDAY 11/10/17 [History Confirmed 10/05/22] multivitamin (Daily Multiple tablet) 1 tab PO QAM 11/10/17 [History Confirmed 10/05/22] timolol 0.5 % eye drops 1 drp ophthalmic (eye) BID 11/10/17 [History Confirmed 10/05/22] folic acid 1 mg tablet 2 mg PO QDAY 01/25/18 [History Confirmed 10/05/22] glucosamine 750 aj-gcoyropwhjn-ejd no1 625 mg-C 30 mg-shant 1 mg tablet (Ozlobkchzus-Brumkyloivb-JAK) 1 tab PO BID 01/25/18 [History Confirmed 10/05/22] mecobalamin (vitamin B12) 1,000 mcg chewable tablet (B12 Active) 3,000 mcg PO DAILY 10/04/19 [History Confirmed 10/05/22] zinc acetate 25 mg (zinc) capsule (Galzin) 25 mg PO DAILY 11/04/20 [History Confirmed 10/05/22] ibuprofen 800 mg tablet See Rx Instructions PO QDAY PRN 05/20/21 [History Confirmed 10/05/22] amlodipine 5 mg tablet 5 mg PO DAILY 11/02/21 [History Confirmed 10/05/22] biotin 1 mg capsule 1 mg PO DAILY 11/02/21 [History Confirmed 11/02/21] letrozole 2.5 mg tablet 2.5 mg PO DAILY 11/02/21 [History Confirmed 10/05/22] lorazepam 0.5 mg tablet 0.5 mg PO DAILY 11/02/21 [History Confirmed 10/05/22] duloxetine 30 mg capsule,delayed release 30 mg PO DAILY 10/05/22 [History Confirmed 10/05/22] lansoprazole 30 mg capsule,delayed release 30 mg PO QAM #90 caps 10/05/22 [Rx Confirmed 10/05/22] PFSH Medical History (Updated 10/05/22 @ 11:31 by Sabina Hood NP, [facility]) Anxiety Cancer of central portion of 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 Cough Fibromyalgia HTN (hypertension) Papilloma of breast Pulmonary emphysema Pulmonary HTN Scleroderma Surgical History History of laparoscopic cholecystectomy History of parotidectomy History of right mastectomy melnoma left chest Family History Father Sarcoma Mother Hypertension Rheumatoid arthritis Brother Hypertension Seizures Disability, developmental Dysphagia Social History Smoking Status: Former smoker Tobacco: How many years used: 40 how long ago did patient quit smokin, 0.5p/d second hand exposure: Yes alcohol intake: current alcohol intake frequency: a few times a month Alcohol type: wine substance use type: does not use HPI HPI Details: RAJ PEDROZA, is a 77 F who presents to the office today to establish with new GI practice since 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 She has scleroderma which has affected her GI tract. She has dysphagia, began several yrs ago, getting worse. Can have trouble swallowing pills and food, no hx of emergency room visits for this. No hx esophageal dilation. On lansoprazole 30 mg daily for about one month; used to take it bought thought she no longer needed it. No heartburn or reflux. No abd pain. No early satiety. No nausea or vomiting. She has small bowel diverticula per imaging studies. She also has large bowel diverticula per colonoscopy. She has constipation. Takes prune juice which is quite helpful. Gets bloating. Can have Type 1 stools on bristol stool scale. Linzess caused diarrhea. Acidophilus helps but causes gas. EGD 03/2020--Z-line irregular, bilious gastric fluid, bile gastritis, nonbleeding duodenal diverticulum; bxs: chronic active gastritis, neg H pylori Colonoscopy 2009--severe diverticulosis descending colon and sigmoid colon; random colon bxs neg pathologic change ROS Const Constitutional: No fatigue ENT ENT: No difficulty swallowing Gastro GI: No abdominal pain, belching, bloating, change in bowel habits, change in stool character, coffee ground emesis, constipation, cramping, diarrhea, heartburn, difficulty swallowing, feeling full early, excessive flatus, incontinent of stools, Vomiting blood/hematemesis, Blood in stool, loose stools, Black,tarry stools, nausea/dyspepsia, pain with swallowing, vomiting or other Musc Musculoskeletal: No joint pain Skin Skin: No yellowing of the eye or itchy eyes Psych Psychiatric: No anxiety and No depression Endo Endocrine: No fatigue Aller/Imm Allergy/Immunologic: No itchy eyes Albaro/Lymp Hematologic/Lymphatic: No easy bleeding or easy bruising Exam Const General: cooperative, healthy appearing and comfortable Nutritional Appearance: average body habitus Orientation: alert, awake and oriented x3 Eyes Sclera: sclerae normal Resp Effort & Inspection: normal respiratory effort GI Inspection: normal to inspection Skin Other: skin changes of scleroderma especially hands Psych Mood: euthymic mood Quality Reporting Tobacco Screening ([facility] 138) Smoking Status: Former smoker Assessment and Plan Assessment and Plan (1) Dysphagia: Status: Chronic Plan: 77 yr old female with dysphagia, scleroderma, constipation. Continue PPI. Will schedule her for EGD. May need manometry or other testing. Try miralax nightly with prune juice for the constipation. F/u 2 wks after egd. (2) Scleroderma: Status: Chronic Plan: see above Medications: New lansoprazole 30 mg PO QAM 90 caps 3RF Coding Level of Care Code Off vis,new,level 3 Diagnoses Dysphagia R13.10 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
[2022-11-09 13:04] VITALS: BP 129/74; PULSE 74; RESP 16; TEMP 36.7; O2SAT 100; BMI 21.3
[2022-11-09] MEDS: Lactated Ringers 1,000 ML 15 ML IV (13:07)
--- NOTE | 2022-11-09 13:30 | IMM_PTH ---
PATIENT: RAJ PEDROZA LOC: EN U#:[id number] AGE/SX: 77/F ROOM: RE11/09/[address]: Dr. Poncho Roper DO : 1945 BED: DIS: 11/09/2022 SPEC #: [id number] RECD: 11/10/22 13:12 STATUS: STEPHY REQ #: [id number] KATHI: 11/09/22 13:[address]: Poncho Roper DEPT: IMMUNOHISTOCHEMISTRY RECD BY: Yesenia Vigil ENTERED: 11/10/22 13:13 SP TYPE: IMMUNO OTHR DR: Dr. Rosario Gaona MD Tissues: A - Stomach, NOS Procedures: H Pylori (initial) PHYSICIAN & INSTITUTION [place] [id number] SPECIMEN INFORMATION: Tissue Source: A ? Gastric antrum Clinical Info: Dysphagia Specimen Number: [id number] CPT code: 75953 METHODOLOGY: Deparaffinized sections of prefer/formalin-fixed tissue or PAP/DQ stained slides are incubated with monoclonal/polyclonal antibodies/oligonucleotide probes. Localization is made via biotin free immunoperoxidase method. Appropriate controls are performed and reacted as expected. Results on target cell population are indicated in the following table: RESULTS: ANTIBODY / CLONE RESULT Block A H Pylori (polyclonal) negative These tests were developed and their performance characteristics determined by [facility]. They may not have been cleared or approved by the U.S. Food and Drug Administration. The FDA has determined that such clearance or approval is not necessary. The above immunohistochemical/dualISH markers are ordered and reviewed by the Pathologist. INTERPRETATION: A. Gastric antrum, biopsy: Negative for Helicobacter pylori organisms. AM:makayla 11/11/2022
--- NOTE | 2022-11-09 13:30 | EGD_PTH ---
PATIENT: RAJ PEDROZA LOC: EN U#:[id number] AGE/SX: 77/F ROOM: RE11/09/[address]: Dr. Poncho Roper DO : 1945 BED: DIS: 11/09/2022 SPEC #: [id number] RECD: 11/09/22 15:35 STATUS: STEPHY RERiccardo #: [id number] KATHI: 11/09/22 13:[address]: Poncho Roper DEPT: SURGICAL PATHOLOGY RECD BY: Radha Hernandez ENTERED: 11/10/22 08:00 SP TYPE: EGD [facility]: Dr. Rosario Gaona MD Tissues: A - Gastric mucous membrane B - Esophagus, NOS Procedures: Surgery Specimen Level IV HEADER OPERATION: EGD ([facility]) and dilation PRE-OP DIAGNOSIS: Dysphagia TISSUE SUBMITTED: A ? Gastric antrum for H. pylori and path, B ? Random esophagus biopsy MICROSCOPIC DIAGNOSIS A. Gastric antrum, biopsy: Chronic gastritis. See comment. B. Esophagus, random biopsy: No pathologic change. AM:makayla 11/11/2022 COMMENT A. The results of immunohistochemistry for Helicobacter pylori will be reported separately ([id number]). MICROSCOPIC DESCRIPTION Slides are reviewed. GROSS DESCRIPTION A - Received in fixative is one container labeled with the patient's name and designated gastric antrum. The specimen consists of two irregular fragments of light cristina soft tissue that in aggregate measure 0.6 x 0.3 x 0.1 cm. The specimen is totally submitted in one cassette. B - Received in fixative is one container labeled with the patient's name and designated random esophagus biopsy. The specimen consists of two irregular fragments of light cristina soft tissue that in aggregate measure 0.8 x 0.4 x 0.1 cm. The specimen is totally submitted in one cassette. / SJ:makayla 11/10/2022 TC:3 CPT: 54447 x2
[2022-11-09 13:45] VITALS: BP 108/54; BP 129/74; PULSE 68; RESP 16; TEMP 37.2; O2SAT 96
[2022-11-09 13:50] VITALS: BP 113/63; BP 129/74; PULSE 67; RESP 16; O2SAT 97
--- NOTE | 2022-11-09 13:54 | OP.EGD_ITS ---
Patient Name: Madelaine Reyes Procedure Date: 11/09/2022 1:17 PM Date of : 1945 Age: 77 Procedure: Upper GI endoscopy Indications: Dysphagia Providers: Poncho Roper DO Referring MD: Poncho Roper DO Medicines: Monitored Anesthesia Care Patient Profile: This is a 77 year old female. Refer to note in patient chart for documentation of history and physical. Patient has symptoms of dysphagia with solids. Complications: No immediate complications. Procedure: Pre-Anesthesia Assessment: - Prior to the procedure, a History and Physical was performed, and patient medications and allergies were reviewed. The patient is competent. The risks and benefits of the procedure and the sedation options and risks were discussed with the patient. All questions were answered and informed consent was obtained. Patient identification and proposed procedure were verified by the physician in the pre-procedure area. Mental Status Examination: alert and oriented. Airway Examination: normal oropharyngeal airway and neck mobility. Respiratory Examination: clear to auscultation. CV Examination: normal. Prophylactic Antibiotics: The patient does not require prophylactic antibiotics. Prior Anticoagulants: The patient has taken no previous anticoagulant or antiplatelet agents. ASA Grade Assessment: II - A patient with mild systemic disease. After reviewing the risks and benefits, the patient was deemed in satisfactory condition to undergo the procedure. The anesthesia plan was to use moderate sedation / analgesia (conscious sedation). Immediately prior to administration of medications, the patient was re-assessed for adequacy to receive sedatives. The heart rate, respiratory rate, oxygen saturations, blood pressure, adequacy of pulmonary ventilation, and response to care were monitored throughout the procedure. The physical status of the patient was re-assessed after the procedure. After obtaining informed consent, the endoscope was passed under direct vision. Throughout the procedure, the patient's blood pressure, pulse, and oxygen saturations were monitored continuously. The gastroscope was introduced through the mouth, and advanced to the second part of duodenum. The upper GI endoscopy was accomplished without difficulty. The patient tolerated the procedure well. Scope In: 1:33:08 PM Scope Out: 1:40:52 PM Total Procedure Duration Time 0 hours 7 minutes 44 seconds Findings: One benign-appearing, intrinsic stenosis was found 19 to 21 cm from the incisors. This stenosis was moderately severe and. The stenosis was traversed. A guidewire was placed and the scope was withdrawn. Dilation was performed with a Savary dilator with no resistance at 57 Fr. The dilation site was examined and showed complete resolution of luminal narrowing. Estimated blood loss was minimal. The middle third of the esophagus was mildly tortuous. Biopsies were obtained from the proximal and distal esophagus with cold forceps for histology of suspected eosinophilic esophagitis. Diffuse moderate inflammation characterized by erosions and erythema was found in the gastric body. Biopsies were taken with a cold forceps for histology. Verification of patient identification for the specimen was done. Estimated blood loss was minimal. The first portion of the duodenum was normal. Impression: - Benign-appearing esophageal stenosis. Dilated. - Tortuous esophagus. - Bile gastritis. Biopsied. - Normal first portion of the duodenum. Recommendation: - Discharge patient to home. - Resume previous diet. - Continue present medications. - Await pathology results. Procedure Code(s): --- Professional --- 33239, Esophagogastroduodenoscopy, flexible, transoral; with insertion of guide wire followed by passage of dilator(s) through esophagus over guide wire 07766, 59, Esophagogastroduodenoscopy, flexible, transoral; with biopsy, single or multiple CPT copyright 2017 [employer]. All rights reserved. The codes documented in this report are preliminary and upon tractor crane operator review may be revised to meet current compliance requirements. Poncho Roper DO 11/09/2022 1:54:37 PM This report has been signed electronically. Number of Addenda: 0 Note Initiated On: 11/09/2022 1:17 PM
[2022-11-09 13:55] VITALS: BP 114/62; BP 129/74; PULSE 65; RESP 16; O2SAT 95
--- NOTE | 2022-11-09 13:55 | OP.CCLET_ITS ---
11/09/2022 Rosario Gaona [place] [id number] [address] Re : Upper GI endoscopy procedure for Madelaine Buddyvanessa Dear Dr. Gaona This procedure was performed on Wednesday, November 09, 2022. My impressions and recommendations are as follows: Impressions : - Benign-appearing esophageal stenosis. Dilated. - Tortuous esophagus. - Bile gastritis. Biopsied. - Normal first portion of the duodenum. Recommendations : - Discharge patient to home. - Resume previous diet. - Continue present medications. - Await pathology results. My findings are described in the full procedure note, which is enclosed. If I can be of further assistance, please feel free to contact me at . Sincerely, Poncho Friend, 11/09/2022 1:54:37 PM This report has been signed electronically.
[2022-11-09 14:02] VITALS: BP 118/64; BP 129/74; PULSE 62; RESP 16; TEMP 36.6; O2SAT 96
[2022-11-09 14:22] VITALS: BP 129/74
== END 2022-11-09 14:27 | disposition home or self-care (01) ==
LOC: EN 12:29 → AC 12:31
PROVIDERS: PCP Family Medicine; Referring Provider Internal Medicine Gastroenterology; Visit Provider Internal Medicine Gastroenterology
PROC: 0DJ08ZZ Inspection of Upper Intestinal Tract, Via Natural or Artificial Opening Endoscopic (ICD-10-PCS; CPT 43235; principal; 2022-11-09 13:25)
DX: K29.50 Unspecified chronic gastritis without bleeding (principal); M34.9 Systemic sclerosis, unspecified; K22.2 Esophageal obstruction; K31.89 Other diseases of stomach and duodenum; R13.10 Dysphagia, unspecified; I10 Essential (primary) hypertension; F41.9 Anxiety disorder, unspecified; K21.9 Gastro-esophageal reflux disease without esophagitis; Z79.82 Long term (current) use of aspirin; Z79.899 Other long term (current) drug therapy; Z87.891 Personal history of nicotine dependence; Z85.3 Personal history of malignant neoplasm of breast
CPT/HCPCS: 43248; 43239; 88305; 88342; J7120; J2405

== ENCOUNTER → 2023-08-12 | Outpatient (CLI) | payer MEDICARE, SELFPAY ==
--- NOTE | 2023-08-12 08:51 | ADU_ITS ---
Reason For Study: BLE Pain Right Velocities Left Velocities Ext. Iliac Artery, dist = 72.2 cm./sec. Ext Iliac Artery, dist = 77.5 cm./sec. Common Femoral Artery, mid = 92.0 cm./sec. Common Femoral Artery, mid = 100.8 cm./sec. Supf Femoral Artery, prox = 78.8 cm./sec. Supf. Femoral Artery, prox = 80.2 cm./sec. Supf Femoral Artery, mid = 78.8 cm./sec. Supf. Femoral Artery, mid = 93.0 cm./sec. Supf Femoral Artery, dist. = 87.6 cm./sec. Supf. Femoral Artery, dist = 105.8 cm./sec. Profunda Femoral Artery = 72.2 cm./sec. Profunda Femoral Artery = 52.6 cm./sec. Popliteal Artery, mid = 50.2 cm./sec. Popliteal Artery, mid = 56.4 cm./sec. Post. Tibial Artery, prox = 105.8 cm./sec. Post. Tibial Artery, prox = 65.6 cm./sec. Post. Tibial Artery, mid = 49.1 cm./sec. Post Tibial Artery, mid = 78.4 cm./sec. Post. Tibial Artery, dist = 34.5 cm./sec. Post Tibial Artery, dist. = 54.6 cm./sec. Peroneal Artery, prox = 80.2 cm./sec. Peroneal Artery,dist. = 97.9 cm./sec. Peroneal Artery, mid = 87.5 cm./sec. Peroneal Artery, prox = 92.4 cm./sec. Peroneal Artery,dist = 54.6 cm./sec. Peroneal Artery, mid = 79.6 cm./sec. Ant. Tibial Artery, prox = 36.3 cm./sec. Ant.Tibial Artery, prox = 48.6 cm./sec. Ant. Tibial Artery, mid = 33.9 cm./sec. Ant Tibial Artery, mid = 57.2 cm./sec. Ant. Tibial Artery, dist = 83.2 cm./sec. Ant. Tibial Artery, distal = 70.3 cm./sec. Procedure The exam was diagnostic. /US Art Duplex Bilat Lower Ext Interpretation Summary Right lower extremity arteries patent with normal velocities and no evidence of stenosis Left lower extremity arteries patent with normal velocities and no evidence of stenosis Ordering Physician: Radha Lino Referring Physician: Rosario Gaona Performed By: Logan Causey RVT
--- NOTE | 2023-08-12 08:51 | ART_ITS ---
Reason For Study: BLE Pain Procedure A bilateral lower extremity continuous wave Doppler with analog waveform analysis and ankle brachial indexes. Left Segmental Pressures Left brachial= 131mmHg. Left posterior tibial artery = 138mmHg. Left dorsalis pedis artery = 102mmHg. Left digit = 30 mmHg. The left posterior tibial artery waveforms are biphasic. The left dorsalis pedis waveforms are biphasic. Right Segmental Pressures Right brachial= 137mmHg. Right posterior tibial artery = 138mmHg. Right dorsalis pedis artery = 137mmHg. Right digit = Absent pulse mmHg. The right posterior tibial artery waveforms are biphasic. The right dorsalis pedis waveforms are biphasic. Indices The right ankle brachial index by the posterior tibial artery is 1.01. The right ankle brachial index by the dorsalis pedis is 1.00. The right digital-brachial index is 0. The left ankle brachial index by the posterior tibial artery is 1.01. The left ankle brachial index by the dorsalis pedis is 0.74. The left digital-brachial index is 0.22. VL/Ankle Brachial Index Interpretation Summary Right NORRIS 1.01, normal. Doppler/PVR waveforms of the right leg normal at rest. TBI and digit waveforms diminished, pedal/digit disease Left NORRIS 1.01, normal. Doppler/PVR waveforms of the left leg normal at rest. TB I and digit waveforms diminished, pedal/digit disease Ordering Physician: Radha Lino Referring Physician: Rosario Gaona Performed By: Logan Causey, RVT
--- OUTSIDE RECORDS SUMMARY | 2023-08-12 09:12 | XMS RPT_ITS | CCD ---
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 Name Role Phone Jack Lindo Primary Care Provider Candelaria DE PAZ, Rosario Primary Care Provider Otoniel DE PAZ, Minna Lara Unavailable Candelaria DE PAZ, Rosario Primary Care Provider Otoniel DE PAZ, Minna Lara Unavailable ROSARIO GAONA Primary Care Unavailable MINNA FREDERICK Attending Unavailable SANDEEP FREDERICKLEY T Referring Unavailable ROSARIO GAONA Primary Care Unavailable ROSARIO GAONA Primary Care Unavailable OTONIEL MINNA T Referring Unavailable SANDEEP FREDERICKLEY T Attending Unavailable THIERRY GAONANAH Primary Care Unavailable DARINEL NUNEZ Referring Unavailable DARINEL NUNEZ Attending Unavailable Allergies Allergy Classification Reported Allergen(s) Allergy Type Date of Onset Reaction(s) Facility Adhesive Tape (1 source) Adhesive Tape Substance Allergy 09-22-2017 Itching [facility] Glucose (1 source) Glucose Drug Allergy 01-17-2017 [facility] Wheat gluten extract (1 source) Wheat gluten extract Drug Allergy 12-13-2016 [facility] (4 sources) Adhesive Tape Propensity to adverse reactions to drug 09-22-2017 Itching [place] (9 sources) Glucose Drug Allergy 01-17-2017 [place] (4 sources) Wheat gluten extract Drug Allergy 12-13-2016 [place] (5 sources) Gluten Propensity to adverse reactions 12-13-2016 Diarrhea [facility] (5 sources) Other Allergy to substance 01-27-2015 Itching [facility] Medications Current Medications Medication Drug Class(es) Dates Sig (Normalized) Sig (Original) 8 hr acetaminophen 650 mg extended release oral tablet (10 sources) acetaminophen (Tylenol 8 Hour) 650 MG ER tablet Take 650 mg by mouth. 0 Active alendronic acid 70 mg oral tablet (5 sources) Bisphosphonate Start: 10-30-2020 alendronate (FOSAMAX) 70 MG tablet Take 1 tablet by mouth every 7 days 12 tablet 3 10/30/2020 Active Completed/Discontinued Medications Medication Drug Class(es) Dates Sig (Normalized) Sig (Original) perflutren lipid microspheres (DEFINITY) injection 1.65 mg (1 source) Start: 05-29-2019 End: 05-29-2019 perflutren lipid microspheres (DEFINITY) injection 1.65 mg Problems Active Problems Problem Classification Problem Date Documented Da te Episodic/Chronic Cancer of breast (17 sources) Malignant tumor of breast ; 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: [Primary malignant neoplasm of breast] Onset: 01-17-2017 01-17-2017 Chronic Osteoporosis (13 sources) Osteoporosis; 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: [Age-related osteoporosis without current pathological fracture] Onset: 09-22-2017 09-22-2017 Chronic Other aftercare (3 sources) Long-term current use of aromatase inhibitor; 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] Onset: 05-11-2023 Episodic Other aftercare (1 source) 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; 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] Onset: 05-11-2023 Episodic Other screening for suspected conditions (not mental disorders or infectious disease) (4 sources) Patient encounter status; 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: [Encounter for screening mammogram for malignant neoplasm of breast] Onset: 05-11-2023 Episodic Systemic lupus erythematosus and connective tissue disorders (3 sources) Systemic sclerosis; 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: [Systemic sclerosis, unspecified] Onset: 08-03-2022 Chronic Past or Other Problems Problem Classification Problem Date Documented Da te Episodic/Chronic Other lower respiratory disease (2 sources) Dyspnea; 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: [Shortness of breath] Onset: 08-03-2022 Episodic Other lower respiratory disease (1 source) Shortness of breath; 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: [Shortness of breath] Onset: 08-03-2022 Episodic Results Test Name Value Interpretation Reference Range Facil ity Vital Signs Date Time Vital Sign Value Performing Clinician Ainsleyi litadrian 05-26-2023 11:40-0500 Body height 166.4 cm Minna Otoniel MD Work Phone: [facility] [place] 05-26-2023 11:40-0500 Body mass index (BMI) [Ratio] 22.45 kg/m2 Minna Frederick MD Work Phone: [facility] 05-26-2023 11:40-0500 Body temperature 97.11 [degF] Minna Frederick MD Work Phone: [facility] [place] 05-26-2023 11:40-0500 Body weight 62.14 kg Minna Frederick MD Work Phone: [facility] [place] 05-26-2023 11:40-0500 Diastolic blood pressure 61 mm[Hg] Minna Frederick MD Work Phone: [facility] [place] 05-26-2023 11:40-0500 Heart rate 72 /min Minna Frederick MD Work Phone: [facility] [place] 05-26-2023 11:40-0500 SaO2% (BldA) [Mass fraction] 97 % Minna Frederick MD Work Phone: [facility] [place] 05-26-2023 11:40-0500 Systolic blood pressure 128 mm[Hg] Minna Frederick MD Work Phone: [facility] [place] 05-11-2023 11:20-0500 Body height 166.4 cm Minna Frederick MD Work Phone: [facility] [place] 05-11-2023 11:20-0500 Body mass index (BMI) [Ratio] 22.12 kg/m2 Minna Frederick MD Work Phone: [facility] [place] 05-11-2023 11:20-0500 Body weight 61.24 kg Minna Frederick MD Work Phone: [facility] [place] Encounters Encounter Date Encounter Type Care Provider Facility Start: 05-26-2023 End: 05-26-2023 ambulatory [facility] Start: 05-26-2023 End: 05-26-2023 Office outpatient visit 15 minutes Minna Frederick MD Work Phone: [facility] Procedures Date Procedure Procedure Detail Performing Clinician Start: 05-11-2023 Screening digital br east tomosynthesis bi Minna Frederick MD Work Phone: Start: 05-11-2023 Dxa bone density francine dy 1/> sites axial skel Minna Frederick MD Work Phone: Start: 05-05-2021 Screening mammograph y bi 2-view breast inc cad Minna Frederick MD Work Phone: Start: 05-13-2020 Echo tthrc r-t 2d w/wom-mode compl spec&colr d Peggy L Vellanki Work Phone: Start: 04-08-2020 Screening mammograph y bi 2-view breast inc cad Minna Frederick Work Phone: Start: 05-29-2019 Echo tthrc r-t 2d w/wom-mode compl spec&colr d Peggy L Vellanki Work Phone: Plan of Treatment Date Care Activity Detail Author Start: 05-11-2024 Screening for osteoporosis Bone Density Scan [facility] Start: 01-12-2024 End: 01-12-2024 Patient encounter procedure 01/12/2024 11:30 AM EDT Office Visit [facility] [address] [place] [id number] Minna Frederick MD [address] [place] [address], [address] [place] [address] [facility] Start: 05-26-2023 End: 05-26-2023 Patient encounter procedure [facility] Start: 05-11-2023 End: 05-11-2023 Patient encounter procedure 05/11/2023 Appointment Radiology [facility] Start: 05-11-2023 Subsequent hospital visit by physician 05/11/2023 Hospital Encounter Radiology [facility] Start: 02-25-2023 COVID-19 Vaccine ( season) COVID-19 Vaccine ( season) [facility] Start: 02-25-2023 Influenza vaccination Influenza Vaccine (#1) [facility] Start: 05-02-2022 Screening for osteoporosis Bone Density Scan [facility] Start: 05-14-2021 End: 05-14-2021 Patient encounter procedure 05/14/2021 Office Visit Hematology and Oncology Minna Frederick MD [address], [address] [place], [place] [id number] [facility] [place] Start: 05-07-2021 End: 05-07-2021 Patient encounter procedure 05/07/2021 Office Visit Hematology and Oncology Minna Frederick MD [address], [address] [place], [place] [id number] [facility] Oncology [place] Start: 05-05-2021 End: 05-05-2021 Patient encounter procedure [facility]IMBER[facility] Start: 02-25-2021 Influenza vaccination Flu vaccine (#1) [facility] Work Phone: Start: 10-23-2020 End: 10-23-2020 Office Visit 10/23/2020 Office Visit Hematology and Oncology Minna Frederick MD [address], [address] [place], [place] [id number] [facility] [place] Start: 05-13-2020 End: 05-13-2020 Appointment 05/13/2020 Appointment Echocardiography KIMBERLY CHAVES Start: 04-17-2020 End: 04-17-2020 Office Visit 04/17/2020 Office Visit Hematology and Oncology Minna Frederick MD [address], [address] [place], [place] [id number] [facility] On[facility] [place] Start: 02-26-2020 Influenza vaccination Flu vaccine (#1) [facility] [place] Start: 10-04-2019 End: 10-04-2019 Office Visit 10/04/2019 Office Visit Hematology and Oncology Minna Frederick MD [address] [place] [address] [phone] [facility] Oncology [place] Start: 02-25-2019 Influenza vaccination Flu vaccine (#1) [place] Start: 12-17-2018 Annual Wellness Visit (AWV) Annual Wellness Visit (AWV) [facility] Start: 10-28-2016 Pneumococcal Vaccine: 65+ Years (2 - PCV) Pneumococcal Vaccine: 65+ Years (2 - PCV) [facility] Start: 06-25-2015 Pneumococcal Vaccine: 65+ Years (2 - PCV) Pneumococcal Vaccine: 65+ Years (2 - PCV) [facility] Start: 01-28-2009 Pneumococcal 65+ years Vaccine (1 of 1 - PPSV23) Pneumococcal 65+ years Vaccine (1 of 1 - PPSV23) [place] Start: 2004 RSV Immunization aged 60 or older (1 - 1-dose 60+ series) RSV Immunization aged 60 or older (1 - 1-dose 60+ series) [facility] Start: 01-28-1994 Colon cancer screen colonoscopy Colon cancer screen colonoscopy [place] Start: 01-28-1994 Shingles Vaccine (1 of 2) Shingles Vaccine (1 of 2) [place] Start: 1984 Lipid screen Lipid screen [place] Start: 01-28-1963 DTaP/Tdap/Td vaccine (1 - Tdap) DTaP/Tdap/Td vaccine (1 - Tdap) [facility] Start: 01-28-1963 DTaP/Tdap/Td Vaccines (1 - Tdap) DTaP/Tdap/Td Vaccines (1 - Tdap) [facility] Start: 01-28-1962 Hepatitis C screening Hepatitis C Screening [facility] Start: 1956 COVID-19 Vaccine (1) COVID-19 Vaccine (1) [facility] Start: 1956 Depression Screening Depression Screening [facility] Start: 01-28-1955 DTaP/Tdap/Td vaccine (1 - Tdap) DTaP/Tdap/Td vaccine (1 - Tdap) [place] Start: 1944 Hepatitis B Vaccines (1 of 3 - 3-dose series) Hepatitis B Vaccines (1 of 3 - 3-dose series) [facility] Start: 1944 Hepatitis C screening Hepatitis C screen [facility] Start: 1945 Lipid panel Lipid Panel [facility] Start: 1944 Medicare Advantage Annual Wellness Visit (AWV) Medicare [facility] Annual Wellness Visit (AWV) [facility] End: 05-05-2021 DEXA Bone Density Axial Skeleton [facility] Work Phone: Immunizations Immunization Date Immunization Notes Care Provider Fa cili 03-22-2022 influenza virus vacc ine, unspecified formulation Minna Frederick MD Work Phone: [facility] Payers Date Payer Category Payer Medicare [id number] 2014 Medicare MEDICARE MEDICAR E PART A AND B xxxxxxxxxxx 2014-Present [phone] [place] [address] xxxxxxxxxxx [id number] 2014 Medicare MEDICARE MEDICAR E PART A AND B [id number] 2014-Present [phone] [place] [address] [id number] 2014 Private Health Insurance AETNA AETNA xxxxxxxxx 2014-Present [phone] [address] [place] [address] xxxxxxxxx [id number] 2014 Private Health Insurance [id number] 2009 Private Health Insurance AETNA AETNA PPO [id number] 2009-2022 [address] [place] [address] Commercial [id number] 2002 Medicare [id number] Social History Date Type Detail Facility Start: 09-21-2018 End: 05-07-2022 Tobacco smoking status NHIS Former smoker [facility] End: 06-27-2012 History of tobacco use Current smoker [place] Start: 09-21-2018 End: 05-26-2023 Alcohol intake Current non-drinker of alcohol (finding) [place] Start: 1945 Sex Assigned At Not on file M [place] Start: 04-24-2020 End: 05-07-2022 Tobacco use and exposure Never used [place] Start: 07-24-2022 End: 08-03-2022 Exposure to SARS-CoV-2 (event) Not sure [place] End: 06-27-2012 History of tobacco use Cigarette Smoker [facility] Start: 05-27-2022 End: 05-26-2023 History of Social function [facility] Start: 05-27-2022 End: 05-26-2023 Tobacco use panel [facility] History of Present illness Narrative 05-26-2023 Minna Frederick MD - 05/26/2023 11:30 AM EST Note Date & Type Note Facility 05-26-2023 History of Presen t illness Narrative Hematology/Oncology History: Pathologic stage IIA ([id number]) invasive ductal carcinoma the 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 status post right simple mastectomy and sentinel lymph node dissection on 12/13/2016. ER 90-100%, [place] 80%, Her 2 negative, G2. Tumor measured 3.1 cm with negative margins. 0 out of 2 sentinel lymph nodes involved. No evidence of lymphovascular invasion. She elected against Oncotype testing. Did not require adjuvant radiation given mastectomy with negative lymph nodes. Initiated adjuvant anastrozole in December 2016. Due to mood changes, switched to letrozole in November 2017 and tolerated better. Other PMHx 1. Scleroderma 2. Fibromyalgia 3. COPD 4. Pulm HTN 5. Raynauds 6. Diverticulosis 7. Melanoma L chest 8. Benign papilloma R breast 9. Hysterectomy and bilateral salpingo-oophorectomy in 1986 secondary to endometriosis/fibroids 10. [place] 11. Appy 12. Tonsillectomy 13. Parotidectomy 14. Osteoporosis - received Fosamax February 2017 through February 2022 15. Benign positional vertigo Social History Social History Tobacco Use Smoking status: Former Types: Cigarettes Quit date: 06/27/2012 Years since quittin.9 Smokeless tobacco: Never Vaping Use Vaping Use: Never used Substance Use Topics Alcohol use: No Drug use: No Family History Family History Problem Relation Name Age of Onset Melanoma Mother 65 Melanoma Father 49 Breast cancer Maternal Cousin 65 Father with history of possible sarcoma. She denies family history of breast or ovarian cancer. Interval History: No new complaints. Maintains compliance with the letrozole, calcium and vitamin D. Denies new chest wall or breast masses. Physical exam: Vitals reviewed Alert, NAD, ecog 1 No appreciated lymphadenopathy in neck or axilla bilaterally. Status post right mastectomy without chest wall mass appreciated. Left breast without mass or lymphadenopathy. Imaging/Labs: Dexa Feb 2019: t score - 2.4 (osteopenia) Dexa Apr 2021: t score -2.5 (osteoporosis) Dexa Apr 2023: t score -2.6 (osteoporosis) L breast mammogram Apr 2023 benign Assessment/Plan: 78 y.o. with PMHx as above 1. Pathologic stage IIA ([id number]) invasive ductal carcinoma the 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 status post right simple mastectomy and sentinel lymph node dissection on 12/13/2016. ER 90-100%, [place] 80%, Her 2 negative. Elected against adjuvant Oncotype testing. Did not require adjuvant radiation given mastectomy with negative lymph nodes. Initiated adjuvant anastrozole in December 2016. Due to mood side effects, switched to letrozole in November 2017 and tolerated better 2. Have discussed side effects of letrozole including but not limited to bone/joint pain, hot flashes, osteoporosis. Discussed importance of compliance. Aromatase inhibitor therapy decreases breast cancer recurrence by approx 40% and improves survival by 30%. Expected 5 yr breast cancer specific OS > 85%. Treatment is being given with curative intent. 3. She did participate in EXET trial evaluating Endopredict testing with estimated risk of distant recurrence in years 5 through 10 after stopping endocrine therapy 3.8%. She elects to continue letrozole for a 7-year duration based on ABCSG-16 trial data (completing December 2023). 4. She has completed 5 years of Fosamax therapy for osteoporosis (completed February 2022). Reviewed recent DEXA scan with stable osteoporosis noted. She will be completing aromatase inhibitor therapy next year and defer future bone density imaging to primary care team. Continue calcium and vitamin D. 5. Have encouraged physical activity, healthy diet, limiting alcohol intake, maintaining healthy body weight. 6. Annual surveillance left breast mammogram next due Apr 2024. 7. Follow-up December 2023. Anticipate stopping letrozole at that time. There are no other issues with medication compliance, stressors, depression, side effects of therapy other than as noted above. Discussion congruent with NCCN guidelines if applicable. she consents to treatment. Shared decision making was performed. documented in this encounter [facility] Progress note 06-09-2021 Note Date & Type Note Facility 06-09-2021 Note HNO ID: [id number] Author: Lisa Greene MD Service: ? Author Type: Physician Type: Progress Notes Filed: 06/09/2021 11:07 AM Note Text: CHIEF COMPLAINT: Patient presents with: Recheck: Scleroderma, Abd bloating, Diverticulosis HPI Raj Reyes is a 76 year old female here today for Recheck (Scleroderma, Abd bloating, Diverticulosis of small bowel) Constipation is stable on twice a week linzess, does not need PPI, GERD is stable. Small diverticulosis for now without symptoms. Occasional dysphagia. Current Outpatient Medications Medication Sig - vit no.124/iron/folic ( VITAMIN ORAL) Take by mouth. - timolol maleate (TIMOPTIC) 0.5 % ophthalmic solution - folic acid 1 mg tablet - linaCLOtide (LINZESS) 145 mcg capsule Take 1 capsule by mouth DAILY (6 AM). 1/2 hr before the first meal of the day - DULoxetine (CYMBALTA) 30 mg capsule - cholecalciferol (VITAMIN D3) 1,000 unit tab tablet 1 tab(s) - letrozole (FEMARA) 2.5 mg tablet Take 2.5 mg by mouth once daily. - Zinc 50 mg tab Take 50 mg by mouth. - alendronate (FOSAMAX) 70 mg tablet Take 70 mg by mouth one time a week. In AM with cup of water on empty stomach. Nothing else by mouth and stay upright for 30 min. - amLODIPine (NORVASC) 5 mg tablet Take 5 mg by mouth once daily. - GLUCOSAM/MSM/CHOND/YFU383/HYAL ([id number], WITH ANTIOX, ORAL) Take 2 tablets by mouth once daily. - methotrexate 2.5 mg tablet Take 20 mg by mouth every Tuesday. - ACETAMINOPHEN (TYLENOL ARTHRITIS ORAL) Take by mouth. - CALCIUM CARBONATE (CALCIUM 600 ORAL) Take by mouth twice daily. - aspirin, enteric coated (ASPIRIN, ENTERIC COATED) 81 mg EC tablet Take 81 mg by mouth once daily. - MULTIVITAMIN ORAL Take by mouth. - LORazepam (ATIVAN) 0.5 mg tab Take by mouth once daily as needed. No current facility-administered medications for this visit. ALLERGIES Allergen Reactions - Gluten Diarrhea - Adhesive Tape (Evelyn* Itching Itching AND redness Social History Tobacco Use - Smoking status: Former Smoker - Smokeless tobacco: Never Used Vaping Use - Vaping Use: Never used Substance Use Topics - Alcohol use: Yes Comment: occ. - Drug use: No PAST MEDICAL HISTORY Diagnosis Date - Adenomatous colon polyp - COPD (chronic obstructive pulmonary disease) (HCC) - Diverticulosis - Gastritis - HTN (hypertension) - Pulmonary hypertension (HCC) - Scleroderma (HCC) PAST SURGICAL HISTORY Procedure Laterality Date - BREAST BIOPSY papilloma non-malignant - COLONOSCOPY 04/17/2013 severe diverticulosis - COLONOSCOPY 12/03/2009 tubular adenoma, serrated polyp fragments, diverticulosis - EGD 12/10/2009 bile reflux gastritis, patulous LES, bilious fluid in antrum - EGD 04/11/2020 bile gastritis, bilious gastric fluid, non-bleeding duodenal diverticulum, neg H pylori - HYSTERECTOMY HX - MASTECTOMY HX Right - PAST SURGICAL HISTORY OF melanoma anterior chest - PAST SURGICAL HISTORY OF Left parotid nodule - SMALL BOWEL SERIES 03/10/2016 Negative FAMILY HISTORY Problem Relation Age of Onset - Sarcoma Father - Colon Cancer No Family History REVIEW OF SYSTEMS Review of Systems Constitutional: Positive for activity change. HENT: Positive for trouble swallowing. Respiratory: Positive for shortness of breath. All other systems reviewed and are negative. PHYSICAL EXAM BP 130/72 Pulse 64 Ht 5' 10 (1.78m) Wt 142 lb (64.4kg) BMI 20.37 kg/(m2). Physical Exam HENT: Head: Normocephalic and atraumatic. Eyes: General: No scleral icterus. Conjunctiva/sclera: Conjunctivae normal. Cardiovascular: Rate and Rhythm: Normal rate and regular rhythm. Heart sounds: Normal heart sounds. Pulmonary: Effort: Pulmonary effort is normal. Breath sounds: Normal breath sounds. Abdominal: General: Bowel sounds are normal. Palpations: Abdomen is soft. Musculoskeletal: General: Deformity present. Cervical back: Neck supple. Comments: Upper extremity sclero dactyli and some flexion deformity in digits Skin: General: Skin is warm and dry. Neurological: Mental Status: She is alert and oriented to person, place, and time. Psychiatric: Judgment: Judgment normal. ASSESSMENT: Other constipation (primary encounter diagnosis) Gastroesophageal reflux disease, unspecified whether esophagitis present Diverticulitis of small intestine without perforation or abscess with bleeding Esophageal dysphagia PLAN: No orders found for this visit on 06/09/21. No follow-ups on file. Will try linzess 145 mcg May need EGD if dysphagia worsens Lisa Greene MD DATE: 06/09/21 TIME: 10:52 AM [facility] Progress note 08-26-2020 Note Date & Type Note Facility 08-26-2020 Note HNO ID: [id number] Author: Lisa Greene Service: ? Author Type: Physician Type: Progress Notes Filed: 08/26/2020 1:52 PM Note Text: JANEEN Reyes is a 75 year old female here today for Recheck (Scleroderma ). Linzess is working well, off and on using prune juice, Bowel movements 4-5 times/week. Some weight loss. No GERD symptoms now, wants to try being off PPI. No abdominal pain, nausea or vomiting. Record Review: [facility] records reviewed Current Outpatient Medications Medication Sig - DULoxetine (CYMBALTA) 30 mg capsule - linaclotide (LINZESS) 145 mcg capsule Take 1 capsule by mouth DAILY (6 AM). - cholecalciferol (VITAMIN D3) 1,000 unit tab tablet 1 tab(s) - letrozole (FEMARA) 2.5 mg tablet Take 2.5 mg by mouth once daily. - Zinc 50 mg tab Take 50 mg by mouth. - timolol maleate/latanoprost/PF (TIMOLOL-LATANOPROST,PF,) 0.5-0.005 % drop Use in eyes twice daily. - alendronate (FOSAMAX) 70 mg tablet Take 70 mg by mouth one time a week. In AM with cup of water on empty stomach. Nothing else by mouth and stay upright for 30 min. - amLODIPine (NORVASC) 5 mg tablet Take 5 mg by mouth once daily. - GLUCOSAM/MSM/CHOND/IYM165/HYAL ([id number], WITH ANTIOX, ORAL) Take 2 tablets by mouth once daily. - FOLIC ACID ORAL Take by mouth. - lansoprazole (PREVACID) 30 mg capsule Take 30 mg by mouth once daily. - methotrexate 2.5 mg tablet Take 20 mg by mouth every Tuesday. - ACETAMINOPHEN (TYLENOL ARTHRITIS ORAL) Take by mouth. - CALCIUM CARBONATE (CALCIUM 600 ORAL) Take by mouth twice daily. - aspirin, enteric coated (ASPIRIN, ENTERIC COATED) 81 mg EC tablet Take 81 mg by mouth once daily. - MULTIVITAMIN ORAL Take by mouth. - LORazepam (ATIVAN) 0.5 mg tab Take by mouth once daily as needed. No current facility-administered medications for this visit. ALLERGIES Allergen Reactions - Gluten Diarrhea - Adhesive Tape (Evelyn* Itching Itching AND redness Social History Tobacco Use - Smoking status: Former Smoker - Smokeless tobacco: Never Used Substance Use Topics - Alcohol use: Yes - Drug use: No PAST MEDICAL HISTORY Diagnosis Date - Adenomatous colon polyp - COPD (chronic obstructive pulmonary disease) (HCC) - Diverticulosis - Gastritis - HTN (hypertension) - Pulmonary hypertension (HCC) - Scleroderma (HCC) PAST SURGICAL HISTORY Procedure Laterality Date - BREAST BIOPSY papilloma non-malignant - COLONOSCOPY 04/17/2013 severe diverticulosis - COLONOSCOPY 12/03/2009 tubular adenoma, serrated polyp fragments, diverticulosis - EGD 12/10/2009 bile reflux gastritis, patulous LES, bilious fluid in antrum - EGD 04/11/2020 bile gastritis, bilious gastric fluid, non-bleeding duodenal diverticulum, neg H pylori - HYSTERECTOMY HX - MASTECTOMY HX Right - PAST SURGICAL HISTORY OF melanoma anterior chest - PAST SURGICAL HISTORY OF Left parotid nodule - SMALL BOWEL SERIES 03/10/2016 Negative FAMILY HISTORY Problem Relation Age of Onset - Sarcoma Father - Colon Cancer No Family History REVIEW OF SYSTEMS Review of Systems HENT: Positive for voice change. Respiratory: Positive for shortness of breath. Gastrointestinal: Trouble Swallowing All other systems reviewed and are negative. PHYSICAL EXAM BP 136/84 Pulse 89 Ht 177.8 cm (5' 10 ) Wt 64 kg (141 lb) BMI 20.23 kg/m? BMI 20.23 kg/(m2) Physical Exam Constitutional: She is oriented to person, place, and time and well-developed, well-nourished, and in no distress. HENT: Head: Normocephalic and atraumatic. Eyes: Conjunctivae are normal. No scleral icterus. Cardiovascular: Normal rate, regular rhythm and normal heart sounds. Pulmonary/Chest: Effort normal and breath sounds normal. Abdominal: Soft. Bowel sounds are normal. Musculoskeletal: General: No edema. Cervical back: Neck supple. Neurological: She is alert and oriented to person, place, and time. Gait normal. Skin: Skin is warm and dry. Psychiatric: Mood, memory, affect and judgment normal. Assessment/Plan: Raj was seen today for recheck. Diagnoses and all orders for this visit: Scleroderma (HCC) Abdominal bloating Diverticulosis of jejunum without diverticulitis xifaxan prn Other constipation - linaclotide (LINZESS) 145 mcg capsule; Take 1 capsule by mouth DAILY (6 AM). GERD: will try stopping PPI I have confirmed and edited as necessary, the PFSH and ROS obtained by others. Lisa Greene MD DATE: 08/26/20 TIME: 1:30 PM [facility] Evaluation note Note Date & Type Note Facility documented in this encounter [facility] Work Phone: Evaluation note Note Date & Type Note Facility documented in this encounter [facility] Evaluation note Note Date & Type Note Facility documented in this encounter [facility] Evaluation note Note Date & Type Note Facility documented in this encounter [facility] Evaluation note Note Date & Type Note Facility documented in this encounter [facility] Evaluation note Note Date & Type Note Facility documented in this encounter [facility] Advance Directives No Advanced Directives Records FoundDocuments on File Type Date Recorded Patient Conventional Underwriter Expl anation Advance Directives and Livin g Will Advance Directives and Livin g Will 03/24/2017 1:[address] frederick Power of Optical Laboratory Manager Latest Code Status on File Code Status Date Activated Date Inactivated Comments Full Code 12/13/2016 10:47 AM 12/13/2016 3:18 PM Full Code 12/13/2016 7:23 AM 12/13/2016 10:47 AM Documents on File Type Date Recorded Patient Conventional Underwriter Expl anation ACP-Advance Directive ACP-Advance Directive 03/24/2017 1:03 PM d r otoniel ACP-Power of Optical Laboratory Manager Documents on File Type Date Recorded Patient Conventional Underwriter Expl anation ACP-Advance Directive ACP-Power of Optical Laboratory Manager ACP-Advance Directive 03/24/2017 1:03 PM d r otoniel Documents on File Type Date Recorded Patient Conventional Underwriter Expl anation ACP-Advance Directive ACP-Power of Optical Laboratory Manager ACP-Advance Directive 03/24/2017 1:03 PM d r otoniel Latest Code Status on File Code Status Date Activated Date Inactivated Comments Full Code 12/13/2016 10:47 AM 12/13/2016 3:18 PM Full Code 12/13/2016 7:23 AM 12/13/2016 10:47 AM Summary Purpose Family History No Family History Records FoundNo Family History Records FoundNo Family History Records FoundNo Family History Records Found Reason for Referral Specialty Diagnoses / Procedures Referred By Klarissa lara Referred To Contact Radiology Diagnoses Encounter for screening mammogram for malignant neoplasm of breast Malignant neoplasm of 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, stage 2 (HCC) Procedures ELADIA KRUPA DIGITAL SCREEN UNI LEFT Minna Frederick MD [address] [facility], [address] [place] [address] Referral ID Status Reason Start Date Expiration Date V isits Requested Visits Authorized [id number] Authorized 05/02/2021 05/02/2022 1 1 Specialty Diagnoses / Procedures Referred By Klarissa lara Referred To Contact Radiology Diagnoses Malignant neoplasm of 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, stage 2 (HCC) 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 Procedures DEXA Bone Density Axial Skeleton Minna Frederick MD [address] [facility], [address] [place] [address] Referral ID Status Reason Start Date Expiration Date Visits Re quested Visits Authorized [id number] Open 05/02/2021 05/02/2022 1 1 Specialty Diagnoses / Procedures Referred By Klarissa lara Referred To Contact Cardiology Diagnoses Systemic sclerosis, unspecified (HCC) Shortness of breath Procedures Transthoracic echocardiogram (TTE) complete with contrast, bubble, strain, and 3D PRN OH ECHO TTHRC R-T 2D W/WOM-MODE COMPL SPEC&COLR D [place] TTE W OR WO FOL WCRYAN,Darinel Mclean, DO [address] [place] [address] Referral ID Status Reason Start Date Expiration Date V isits Requested Visits Authorized [id number] Closed Perform Procedure 06/25/2022 12/22/2022 1 1 Additional Source Comments INFORMATION SOURCE (unrecogn ized section and content) DATE CREATED AUTHOR AUTHOR'S ORGANIZ ATION 08/19/2021 [facility] DATE CREATED AUTHOR AUTHOR'S ORGANIZ ATION [email or web address] DATE CREATED AUTHOR AUTHOR'S ORGANIZ ATION 05/29/[address] 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 Specialty Start Date End Date Rosario Gaona MD [address] [place] [phone] PCP - General 04/28/19 Minna Frederick MD [address] [place] [address], [address] [place], [place] [id number] Consulting Physician Hematology and Oncology 05/07/22 Water Jet Loom Fixer Relationship Specialty Start Date End Date Rosario Gaona MD [address] [place] [phone] PCP - General 04/28/19 Minna Frederick MD [address] [place] [address], [address] [place] [address] Consulting Physician Hematology and Oncology 05/07/22 Water Jet Loom Fixer Relationship Specialty Start Date End Date Rosario Gaona MD [address] [place] [phone] PCP - General 04/28/19 Minna Frederick MD [address] [place] [address], [address] [place] [address] Consulting Physician Hematology and Oncology 05/07/22 Water Jet Loom Fixer Relationship Specialty Start Date End Date Rosario Gaona MD [address] [place] [phone] PCP - General 04/28/19 Minna Frederick MD [address] [facility], [address] [place] [address] Consulting Physician Hematology and Oncology 05/07/22 Reason for Visit (unrecogniz ed section and content) Reason Comments Follow-up FOR RECORDS PERTAINING TO PATIENTS WHO ARE OR HAVE BEEN ENROLLED IN A CHEMICAL DEPENDENCY/SUBSTANCEABUSE PROGRAM, SOME INFORMATION MAY BE OMITTED. This clinical summary was aggregated from multiple sources. Caution should be exercised in using it in the provision of clinical care. This summary normalizes information from multiple sources, and as a consequence, information in this document may materially change the coding, format and clinical context of patient data. In addition, data may be omitted in some cases. CLINICAL DECISIONS SHOULD BE BASED ON THE PRIMARY CLINICAL RECORDS. [facility]. provides no warranty or guarantee of the accuracy or completeness of information in this document.
== END | disposition home or self-care (01) ==
LOC: CVS 08:47
PROVIDERS: PCP Family Medicine; Referring Provider Nurse Practitioner Family; Visit Provider Nurse Practitioner Family
DX: M79.604 Pain in right leg (principal); M79.605 Pain in left leg; R60.0 Localized edema; R09.89 Other specified symptoms and signs involving the circulatory and respiratory systems
CPT/HCPCS: 93922; 93925

== ENCOUNTER 2024-04-25 08:19 | Day surgery (SDC) | payer MEDICARE, SELFPAY ==
[2024-04-25] VITALS (7 sets, daily range): BP systolic 89–121; BP diastolic 56–73; PULSE 72–85; RESP 16–18; TEMP 36.1–37; O2SAT 95–99; BMI 20.7
--- NOTE | 2024-04-25 08:32 | PCM.PRE.AN2 ---
ASA Classification* ASA Classification ASA Classification: 3 (SEE WRITTEN PRE ANESTHESIA RECORD FOR FULL ASSESSMENT) Assessment & Plan Anesthesia* Anesthesia Assessment Anesthesia Assessment: Discussed sedation and/or anesthesia options, risks, benefits, and alternatives with patient/parents/legal guardian/POA. Questions invited. The patient/parents/legal guardian/POA seems to understand and agrees to proceed with anesthesia plan. Reviewed the physical assessment, medical history, allergy history and patient home medications list prior to surgery/procedure/anesthetic and documented any changes. Performed airway and anesthesia risk assessments. Anesthesia Type Anesthesia Type: MAC (SEE WRITTEN PRE ANESTHESIA RECORD FOR FULL ASSESSMENT) Anesthesia Focused Assessment* Airway Assessment Mouth opens: >3 cm Mallampati Score: II Focused Labs Anesthesia Preop lab: CBC WBC 7.1 K/mm3 (4.4-11.0) 03/03/21 14:01 RBC 4.27 M/mm3 (4.2-5.4) 03/03/21 14:01 Hgb 12.9 g/dL (12.0-15.0) 03/03/21 14:01 Hct 40.0 % (37-47) 03/03/21 14:01 Plt Count 279 K/mm3 (150-450) 03/03/21 14:01 CHEMISTRY Potassium 4.2 mmol/L (3.5-5.1) 03/03/21 14:01 Sodium 136 mmol/L (136-145) 03/03/21 14:01 BUN 12 mg/dL (7-18) 03/03/21 14:01 Creatinine 0.57 mg/dL (0.55-1.02) 03/03/21 14:01 Glucose 98 mg/dL (74-106) 03/03/21 14:01 TSH 0.64 uIU/mL (0.358-3.74) 04/30/20 09:42 COAG Pre-Assessment Diagnosis/Proposed Procedure Planned Operative Procedure(s): EGD Anesthesia History 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 When Was Last Pacemaker Check QUESTION #4 FULL TEXT: You/Your Family Experience fever (hyperthermia) with Anesthesia Last Oral Intake Last Oral intake: Last Oral Intake NPO since Meds taken in AM with sips of water? Meds patient instructed to take am of surgery PONV PONV - sharepoint web developer: PONV - sharepoint web developer Female Yes 04/24/24 11:09 HX of Motion Sickness No 04/24/24 11:09 HX of N/V After Surgery No 04/24/24 11:09 Non-Smoker Yes 04/24/24 11:09 Duration of Surgery greater No 04/24/24 11:09 than 60 minutes Number of Risk Factors 2 04/24/24 11:09 PONV Score Moderate Risk 04/24/24 11:09 Height & Weight Height & Weight: Anesthesia: Height & Weight Height 5 ft 7 in 12/20/22 05:56 Respiratory Assessment Respiratory Assessment - sharepoint web developer: Respiratory Tract Infection Hx - sharepoint web developer Hx Respiratory Tract Infection No 04/24/24 11:09 STOP Sleep Apnea STOP Sleep Apnea - sharepoint web developer: STOP Sleep Apnea - sharepoint web developer Hx Hypertension Yes: CONTROLLED WITH MEDS 04/24/24 11:09 Hx Sleep Apnea No 04/24/24 11:09 CPAP BIPAP Do you snore loudly (louder No 04/24/24 11:09 than talking or can be heard Do you often feel tired/ No 04/24/24 11:09 fatigued/ sleepy during daytime? Has anyone observed you stop No 04/24/24 11:09 breathing during sleep? STOP Results Negative 04/24/24 11:09 QUESTION #5 FULL TEXT : Do you snore loudly (louder than talking or can be heard through closed doors)? 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 Specify any problems Hx of Preganancy in last 3 No 04/24/24 11:09 Months Nurse Filling Out Transfusion [email or web address] 04/24/24 11:09 & Questions: Date: 04/24/24 04/24/24 11:09 Time: 11:16 04/24/24 11:09 Patient unable to answer at this time (ie. confused, unrespo /Reproduction History /Reproductive History - sharepoint web developer: /Reproductive Hx- sharepoint web developer Hx Now Gestational Age (in weeks): EDC: Hx Hx Para Hx Section SAB No 11/05/22 15:28 PFS Medical History (Updated 04/24/24 @ 11:20 by Eusebio Milner) Wears glasses Wears partial dentures Post-menopausal Ambulates with cane Syncope Goiter Osteoporosis Absence of sense of taste History of diverticulitis Difficulty swallowing Gastric reflux Former smoker Neuropathy of both feet Pulmonary arterial hypertension Hoarseness History of edema History of stress test Papilloma of breast Fibromyalgia Scleroderma Anxiety Cancer of central portion of 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 Pulmonary HTN Pulmonary emphysema Cough HTN (hypertension) Home Medications ?Medication ?Instructions ?Recorded ?Last Taken ?Type acetaminophen 650 mg 650 mg PO QDAY 11/10/17 Unknown History tablet,extended release (Tylenol 8 Hour) aspirin 81 mg tablet,delayed 81 mg PO QDAY 11/10/17 04/21/24 History release (Adult Aspirin Regimen) calcium carbonate (Calcium 600) 1,200 mg PO QDAY 11/10/17 Unknown History cholecalciferol (vitamin D3) 25 1,000 unit PO QDAY 11/10/17 Unknown History mcg (1,000 unit) capsule multivitamin (Daily Multiple 1 tab PO QAM 11/10/17 Unknown History tablet) timolol 0.5 % eye drops 1 drp ophthalmic (eye) BID 11/10/17 Unknown History zinc acetate 25 mg (zinc) capsule 25 mg PO DAILY 11/04/20 Unknown History (Galzin) ibuprofen 800 mg tablet See Rx Instructions PO QDAY PRN 05/20/21 11/09/22 History Pain amlodipine 5 mg tablet 5 mg PO QHS 11/02/21 Unknown History lorazepam 0.5 mg tablet 0.5 mg PO DAILY 11/02/21 Unknown History duloxetine 30 mg capsule,delayed 30 mg PO DAILY 10/05/22 Unknown History release methotrexate sodium 2.5 mg tablet 15 mg PO MO 04/24/24 Unknown History Allergy/AdvReac Type Severity Reaction Status Date / Time gluten Allergy Upset Verified 04/24/24 11:05 Stomach adhesive tape AdvReac Mild Rash Verified 04/24/24 11:05 Family History Father Sarcoma Mother Hypertension Rheumatoid arthritis Brother Hypertension Seizures Disability, developmental Dysphagia Surgical History History of esophagogastroduodenoscopy (EGD) History of colonoscopy History of hysterectomy History of arthroscopy of right knee History of laparoscopic cholecystectomy History of parotidectomy melnoma left chest History of right mastectomy Social History Smoking Status: Former smoker Tobacco: How many years used: 40 how long ago did patient quit smokin, 0.5p/d second hand exposure: Yes alcohol intake: current alcohol intake frequency: a few times a month Alcohol type: wine substance use type: does not use Review of Systems (Anesthesia) ROS Narrative System reviewed and no additional complaints, except as documented.
--- NOTE | 2024-04-25 08:35 | PRE.ANES_ITS ---
ASA Classification* ASA Classification ASA Classification: 2 (SEE WRITTEN PRE ANESTHESIA RECORD FOR FULL ASSESSMENT) Assessment & Plan Anesthesia* Anesthesia Assessment Anesthesia Assessment: Discussed sedation and/or anesthesia options, risks, benefits, and alternatives with patient/parents/legal guardian/POA. Questions invited. The patient/parents/legal guardian/POA seems to understand and agrees to proceed with anesthesia plan. Reviewed the physical assessment, medical history, allergy history and patient home medications list prior to surgery/procedure/anesthetic and documented any changes. Performed airway and anesthesia risk assessments. Anesthesia Type Anesthesia Type: MAC (SEE WRITTEN PRE ANESTHESIA RECORD FOR FULL ASSESSMENT) Anesthesia Focused Assessment* Airway Assessment Mouth opens: >3 cm Mallampati Score: II Focused Labs Anesthesia Preop lab: CBC WBC 7.1 K/mm3 (4.4-11.0) 03/03/21 14:01 RBC 4.27 M/mm3 (4.2-5.4) 03/03/21 14:01 Hgb 12.9 g/dL (12.0-15.0) 03/03/21 14:01 Hct 40.0 % (37-47) 03/03/21 14:01 Plt Count 279 K/mm3 (150-450) 03/03/21 14:01 CHEMISTRY Potassium 4.2 mmol/L (3.5-5.1) 03/03/21 14:01 Sodium 136 mmol/L (136-145) 03/03/21 14:01 BUN 12 mg/dL (7-18) 03/03/21 14:01 Creatinine 0.57 mg/dL (0.55-1.02) 03/03/21 14:01 Glucose 98 mg/dL (74-106) 03/03/21 14:01 TSH 0.64 uIU/mL (0.358-3.74) 04/30/20 09:42 COAG Pre-Assessment Diagnosis/Proposed Procedure Planned Operative Procedure(s): EGD Anesthesia History 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 When Was Last Pacemaker Check QUESTION #4 FULL TEXT: You/Your Family Experience fever (hyperthermia) with Anesthesia Last Oral Intake Last Oral intake: Last Oral Intake NPO since Meds taken in AM with sips of water? Meds patient instructed to take am of surgery PONV PONV - bill board poster: PONV - bill board poster Female Yes 04/24/24 11:09 HX of Motion Sickness No 04/24/24 11:09 HX of N/V After Surgery No 04/24/24 11:09 Non-Smoker Yes 04/24/24 11:09 Duration of Surgery greater No 04/24/24 11:09 than 60 minutes Number of Risk Factors 2 04/24/24 11:09 PONV Score Moderate Risk 04/24/24 11:09 Height & Weight Height & Weight: Anesthesia: Height & Weight Height 5 ft 7 in 12/20/22 05:56 Respiratory Assessment Respiratory Assessment - bill board poster: Respiratory Tract Infection Hx - bill board poster Hx Respiratory Tract Infection No 04/24/24 11:09 STOP Sleep Apnea STOP Sleep Apnea - bill board poster: STOP Sleep Apnea - bill board poster Hx Hypertension Yes: CONTROLLED WITH MEDS 04/24/24 11:09 Hx Sleep Apnea No 04/24/24 11:09 CPAP BIPAP Do you snore loudly (louder No 04/24/24 11:09 than talking or can be heard Do you often feel tired/ No 04/24/24 11:09 fatigued/ sleepy during daytime? Has anyone observed you stop No 04/24/24 11:09 breathing during sleep? STOP Results Negative 04/24/24 11:09 QUESTION #5 FULL TEXT : Do you snore loudly (louder than talking or can be heard through closed doors)? 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 Specify any problems Hx of Preganancy in last 3 No 04/24/24 11:09 Months Nurse Filling Out Transfusion [email or web address] 04/24/24 11:09 & Questions: Date: 04/24/24 04/24/24 11:09 Time: 11:16 04/24/24 11:09 Patient unable to answer at this time (ie. confused, unrespo /Reproduction History /Reproductive History - bill board poster: /Reproductive Hx- bill board poster Hx Now Gestational Age (in weeks): EDC: Hx Hx Para Hx Section SAB No 11/05/22 15:28 PFSH Medical History Wears glasses Wears partial dentures Post-menopausal Ambulates with cane Syncope Goiter Osteoporosis Absence of sense of taste History of diverticulitis Difficulty swallowing Gastric reflux Former smoker Neuropathy of both feet Pulmonary arterial hypertension Hoarseness History of edema History of stress test Papilloma of breast Fibromyalgia Scleroderma Anxiety Cancer of central portion of 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 Pulmonary HTN Pulmonary emphysema Cough HTN (hypertension) Home Medications ?Medication ?Instructions ?Recorded ?Last Taken ?Type acetaminophen 650 mg 650 mg PO QDAY 11/10/17 Unknown History tablet,extended release (Tylenol 8 Hour) aspirin 81 mg tablet,delayed 81 mg PO QDAY 11/10/17 04/21/24 History release (Adult Aspirin Regimen) calcium carbonate (Calcium 600) 1,200 mg PO QDAY 11/10/17 Unknown History cholecalciferol (vitamin D3) 25 1,000 unit PO QDAY 11/10/17 Unknown History mcg (1,000 unit) capsule multivitamin (Daily Multiple 1 tab PO QAM 11/10/17 Unknown History tablet) timolol 0.5 % eye drops 1 drp ophthalmic (eye) BID 11/10/17 Unknown History zinc acetate 25 mg (zinc) capsule 25 mg PO DAILY 11/04/20 Unknown History (Galzin) ibuprofen 800 mg tablet See Rx Instructions PO QDAY PRN 05/20/21 11/09/22 History Pain amlodipine 5 mg tablet 5 mg PO QHS 11/02/21 Unknown History lorazepam 0.5 mg tablet 0.5 mg PO DAILY 11/02/21 Unknown History duloxetine 30 mg capsule,delayed 30 mg PO DAILY 10/05/22 Unknown History release methotrexate sodium 2.5 mg tablet 15 mg PO MO 04/24/24 Unknown History Allergy/AdvReac Type Severity Reaction Status Date / Time gluten Allergy Upset Verified 04/24/24 11:05 Stomach adhesive tape AdvReac Mild Rash Verified 04/24/24 11:05 Family History Father Sarcoma Mother Hypertension Rheumatoid arthritis Brother Hypertension Seizures Disability, developmental Dysphagia Surgical History History of esophagogastroduodenoscopy (EGD) History of colonoscopy History of hysterectomy History of arthroscopy of right knee History of laparoscopic cholecystectomy History of parotidectomy melnoma left chest History of right mastectomy Social History Smoking Status: Former smoker Tobacco: How many years used: 40 how long ago did patient quit smokin, 0.5p/d second hand exposure: Yes alcohol intake: current alcohol intake frequency: a few times a month Alcohol type: wine substance use type: does not use Review of Systems (Anesthesia) ROS Narrative System reviewed and no additional complaints, except as documented.
--- NOTE | 2024-04-25 09:30 | IMM_PTH ---
PATIENT: RAJ PEDROZA LOC: EN U#:[id number] AGE/SX: 79/F ROOM: RE04/25/[address]: Dr. Poncho Roper DO : 1945 BED: DIS: 04/25/2024 SPEC #: [id number] RECD: 04/25/24 13:05 STATUS: STEPHY REQ #: [id number] KATHI: 04/25/24 09:[address]: Poncho Roper DEPT: IMMUNOHISTOCHEMISTRY RECD BY: Nadeem Smith ENTERED: 04/25/24 13:05 SP TYPE: IMMUNO OTHR DR: Dr. Rosario Gaona MD Tissues: B - Gastric mucous membrane Procedures: H Pylori (initial) PHYSICIAN & INSTITUTION [place] [id number] SPECIMEN INFORMATION: Tissue Source: B- Gastric antrum biopsy Clinical Info: Dysphagia, scleroderma Specimen Number: [id number] CPT code: 15057 METHODOLOGY: Deparaffinized sections of prefer/formalin-fixed tissue or PAP/DQ stained slides are incubated with monoclonal/polyclonal antibodies/oligonucleotide probes. Localization is made via biotin free immunoperoxidase method. Appropriate controls are performed and reacted as expected. Results on target cell population are indicated in the following table: RESULTS: ANTIBODY / CLONE RESULT Block B H Pylori (polyclonal) negative These tests were developed and their performance characteristics determined by [facility]. They may not have been cleared or approved by the U.S. Food and Drug Administration. The FDA has determined that such clearance or approval is not necessary. The above immunohistochemical/dualISH markers are ordered and reviewed by the Pathologist. INTERPRETATION: B. Gastric antrum, biopsy: Negative for Helicobacter pylori organisms. STONE/ 04/26/2024
--- NOTE | 2024-04-25 09:30 | EGD_PTH ---
PATIENT: RAJ PEDROZA LOC: EN U#:[id number] AGE/SX: 79/F ROOM: RE04/25/[address]: Dr. Poncho Roper DO : 1945 BED: DIS: 04/25/2024 SPEC #: [id number] RECD: 04/25/24 13:41 STATUS: STEPHY RERiccardo #: [id number] KATHI: 04/25/24 09:[address]: Poncho Roper DEPT: SURGICAL PATHOLOGY RECD BY: Nadeem Smith ENTERED: 04/25/24 13:42 SP TYPE: EGD BIOPSY GEOVANNY DR: Dr. Rosario Gaona MD Tissues: A - Duodenum, NOS B - Gastric mucous membrane Procedures: Surgery Specimen Level IV HEADER OPERATION: EGD with biopsy and dilatation PRE-OP DIAGNOSIS: Dysphagia, scleroderma TISSUE SUBMITTED: A- Duodenum ulcer biopsy, B- Gastric antrum biopsy MICROSCOPIC DIAGNOSIS A. Duodenum ulcer, biopsy: A fragment of duodenal mucosa with acute and chronic inflammation and focal villous blunting. B. Gastric antrum, biopsy: Mild gastritis. See microscopic description and comment. 04/26/2024 COMMENT B. The results of immunohistochemistry for Helicobacter pylori will be reported separately ([id number]). MICROSCOPIC DESCRIPTION Slides are reviewed. B. The specimen shows fragments of gastric mucosa with chronic inflammatory cell infiltrates in the lamina propria consisting of lymphocytes and plasma cells, consistent with mild chronic gastritis. GROSS DESCRIPTION A. Received in fixative is one container labeled with the patient's name and designated Duodenum biopsy. The specimen consists of one irregular fragment of light cristina soft tissue that measures 0.5 x 0.4 x 0.1 cm. The specimen is totally submitted in one cassette. B. Received in fixative is one container labeled with the patient's name and designated Gastric antrum biopsy. The specimen consists of two irregular fragments of light cristina soft tissue that in aggregate measure 0.3 x 0.2 x 0.1 cm. The specimen is totally submitted in one cassette. [facility] 04/25/2024 TC:3 CPT:40365k6
--- NOTE | 2024-04-25 09:46 | PCM.HP.BLA ---
History and Physical Date of Admission: 04/25/24 RAJ PEDROZA, is a 79 F who presents to the office today for follow up. OV .07.20 pt reports continued symptoms of alternating bowels, and some difficulty swallowing. Pt reports that she had her esophagus dilated last October. ROS Const Constitutional: Positive for fatigue, frequent falls and weakness; No fever(s) or weight change ENT ENT: Positive for difficulty swallowing Gastro GI: Positive for bloating, change in bowel habits, constipation, diarrhea, heartburn, difficulty swallowing, excessive flatus and vomiting; No abdominal pain, belching, change in stool character, coffee ground emesis, cramping, feeling full early, incontinent of stools, Vomiting blood/hematemesis, Blood in stool, loose stools, Black,tarry stools, nausea/dyspepsia, pain with swallowing or other Musc Musculoskeletal: Positive for abnormal gait, joint pain, joint swelling, muscle weakness, numbness, tingling and Arthritis Skin Skin: Positive for dry skin and itchy eyes; No yellowing of the eye Neuro Neurology: Positive for abnormal gait, weakness, frequent falls, numbness and tingling Psych Psychiatric: No anxiety and No depression Endo Endocrine: Positive for fatigue; No weight change Aller/Imm Allergy/Immunologic: Positive for itchy eyes Albaro/Lymp Hematologic/Lymphatic: No easy bleeding or easy bruising Exam Const General: cooperative, healthy appearing and comfortable Orientation: alert, awake and oriented x3 Assessment and Plan Assessment and Plan (1) Dysphagia: Status: Chronic Plan: 77 yr old female with dysphagia, scleroderma, constipation. Continue PPI. Will schedule her for EGD. May need manometry or other testing. Try miralax nightly with prune juice for the constipation. F/u 2 wks after egd. (2) Scleroderma: Status: Chronic Plan: see above I have examined the patient and the H&P has been reviewed. There are no clinical changes since date of exam.
--- NOTE | 2024-04-25 10:15 | OP.CCLET_ITS ---
04/25/2024 Rosario Gaona [place] [id number] [place] [address] Re : Upper GI endoscopy procedure for Madelaine Buddyvanessa Dear Dr. Gaona This procedure was performed on Tuesday, April 25, 2024. My impressions and recommendations are as follows: Impressions : - Abnormal esophageal motility, suspicious for esophageal spasm. Dilated. - Chronic gastritis. Biopsied. - Bile duodenitis. Biopsied. Recommendations : - Discharge patient to home. - Resume previous diet. - Continue present medications. - Await pathology results. My findings are described in the full procedure note, which is enclosed. If I can be of further assistance, please feel free to contact me at . Sincerely, Poncho Roper, 04/25/2024 10:14:28 AM This report has been signed electronically.
--- NOTE | 2024-04-25 10:15 | OP.EGD_ITS ---
Patient Name: Madelaine Reyes Procedure Date: 04/25/2024 9:56 AM Date of : 1945 Age: 79 Procedure: Upper GI endoscopy Indications: Functional Dyspepsia, Dysphagia Providers: Poncho Roper DO Medicines: Monitored Anesthesia Care Patient Profile: This is an 79 year old female. Refer to note in patient chart for documentation of history and physical. Patient has symptoms of chronic dysphagia and dysphagia with both liquids and solids. Patient has symptoms of chronic dysphagia. Complications: No immediate complications. Procedure: Pre-Anesthesia Assessment: - Prior to the procedure, a History and Physical was performed, and patient medications and allergies were reviewed. The patient is competent. The risks and benefits of the procedure and the sedation options and risks were discussed with the patient. All questions were answered and informed consent was obtained. Patient identification and proposed procedure were verified by the physician in the pre-procedure area. Mental Status Examination: alert and oriented. Airway Examination: normal oropharyngeal airway and neck mobility. Respiratory Examination: clear to auscultation. CV Examination: normal. Prophylactic Antibiotics: The patient does not require prophylactic antibiotics. Prior Anticoagulants: The patient has taken no anticoagulant or antiplatelet agents except for NSAID medication. ASA Grade Assessment: II - A patient with mild systemic disease. After reviewing the risks and benefits, the patient was deemed in satisfactory condition to undergo the procedure. The anesthesia plan was to use monitored anesthesia care (MAC). Immediately prior to administration of medications, the patient was re-assessed for adequacy to receive sedatives. The heart rate, respiratory rate, oxygen saturations, blood pressure, adequacy of pulmonary ventilation, and response to care were monitored throughout the procedure. The physical status of the patient was re-assessed after the procedure. After obtaining informed consent, the endoscope was passed under direct vision. Throughout the procedure, the patient's blood pressure, pulse, and oxygen saturations were monitored continuously. The gastroscope was introduced through the mouth, and advanced to the second part of duodenum. The upper GI endoscopy was accomplished without difficulty. The patient tolerated the procedure well. Scope In: 10:01:02 AM Scope Out: 10:07:09 AM Total Procedure Duration Time 0 hours 6 minutes 7 seconds Findings: Abnormal motility was noted at the cricopharyngeus. The cricopharyngeus was abnormal. There are extra peristaltic waves in the esophageal body. The distal esophagus/lower esophageal sphincter is spastic, but gives up passage to the endoscope. A guidewire was placed and the scope was withdrawn. Dilation was performed with a Savary dilator with no resistance at 54 Fr. The dilation site was examined and showed moderate improvement in luminal narrowing. Estimated blood loss was minimal. Diffuse severe inflammation characterized by erosions, erythema and friability was found in the entire examined stomach. Biopsies were taken with a cold forceps for histology. Verification of patient identification for the specimen was done. Estimated blood loss was minimal. Biopsies were taken with a cold forceps for Helicobacter pylori testing. Verification of patient identification for the specimen was done. Estimated blood loss was minimal. Patchy severe inflammation characterized by congestion (edema), erosions, erythema and shallow ulcerations was found in the entire duodenum. Biopsies were taken with a cold forceps for histology. Verification of patient identification for the specimen was done. Estimated blood loss was minimal. Impression: - Abnormal esophageal motility, suspicious for esophageal spasm. Dilated. - Chronic gastritis. Biopsied. - Bile duodenitis. Biopsied. Recommendation: - Discharge patient to home. - Resume previous diet. - Continue present medications. - Await pathology results. Procedure Code(s): --- Professional --- 02067, Esophagogastroduodenoscopy, flexible, transoral; with insertion of guide wire followed by passage of dilator(s) through esophagus over guide wire 97220, 59,51, Esophagogastroduodenoscopy, flexible, transoral; with biopsy, single or multiple CPT copyright 2021 [employer]. All rights reserved. The codes documented in this report are preliminary and upon cellophane wrapping examiner review may be revised to meet current compliance requirements. Poncho Roper DO 04/25/2024 10:14:28 AM This report has been signed electronically. Number of Addenda: 0 Note Initiated On: 04/25/2024 9:56 AM
--- NOTE | 2024-04-25 10:19 | PCM.POST.ANE ---
Anesthesia: Postop Eval I Current Vital Signs Temperature: 97 F Pulse Rate: 84 Blood Pressure: 90/59 Respiratory Rate: 16 Pulse Ox: 99 Oxygen Delivery Method: Room Air Assessment Airway patent: Yes Spontaneous unlabored respirations: Yes Mental status: Awake and Calm nausea: No Vomiting: No Anesthesia Complication: No Fluid Hydration Crystalloid volume administer (ml): 30 Total IV fluid infused: 30 Progress Note Anesthesia document: Postop Eval 1 completed: Yes
--- NOTE | 2024-04-25 10:33 | PCM.POSTANE2 ---
Anesthesia Postop Eval I Sum Postop Eval Completion status Anesthesia document: Postop Eval 1 completed: Yes Anesthesia Postop Eval I Summary Anesthesia Postop Eval I Summary: Anesthesia Postop Eval I: Assessment Summary Airway patent Yes 04/25/24 10:19 [email or web address] Spontaneous unlabored Yes 04/25/24 10:19 [email or web address] respirations Mental status Awake,Calm 04/25/24 10:19 [email or web address] nausea No 04/25/24 10:19 [email or web address] Vomiting No 04/25/24 10:19 [email or web address] Anesthesia Postop Eval I: Fluid Summary Crystalloid volume administer 30 04/25/24 10:19 [email or web address] (ml) Colloids volume administered ( ml) Blood Product volume administered (ml) Total IV fluid infused 30 04/25/24 10:19 [email or web address] Anesthesia Postop Eval I: Summary Notes Anesthesia Complication No 04/25/24 10:19 [email or web address] Anesthesia Complication Comment: Post-operative progress note Anesthesia: Postop Eval II Evaluation Mental status: Awake Pain Level: 0 nausea: No Vomiting: No
== END 2024-04-25 10:52 | disposition home or self-care (01) ==
LOC: EN 08:20 → AC 08:23
PROVIDERS: PCP Family Medicine; Referring Provider Family Medicine; Visit Provider Internal Medicine Gastroenterology
PROC: 0DJ08ZZ Inspection of Upper Intestinal Tract, Via Natural or Artificial Opening Endoscopic (ICD-10-PCS; CPT 43235; principal; 2024-04-25 09:25)
DX: R13.10 Dysphagia, unspecified (principal); M34.9 Systemic sclerosis, unspecified; K29.80 Duodenitis without bleeding; K29.50 Unspecified chronic gastritis without bleeding; K22.89 Other specified disease of esophagus
CPT/HCPCS: 43248; 43239; 88305; 88342; A4216; C1769; J2405

== ENCOUNTER → 2024-05-03 | Outpatient (CLI) | payer MEDICARE, SELFPAY | END | disposition home or self-care (01) | LOC: BFHLAB 11:27 | PROVIDERS: PCP Family Medicine; Referring Provider Family Medicine; Visit Provider Family Medicine | DX: E04.2 Nontoxic multinodular goiter (principal) | CPT/HCPCS: 36415; 84443 ==

== ENCOUNTER → 2024-06-08 | Day surgery (SDC) | payer MEDICARE, SELFPAY ==
[2024-06-08 10:25] VITALS: BP 129/67; PULSE 74; RESP 15; TEMP 36.7; O2SAT 90
== END | disposition home or self-care (01) ==
PROVIDERS: PCP Family Medicine; Referring Provider Family Medicine; Visit Provider Internal Medicine Gastroenterology
PROC: F00ZJWZ Instrumental Swallowing and Oral Function Assessment using Swallowing Equipment (ICD-10-PCS; CPT 43235; principal; 2024-06-08 09:55)
DX: K22.2 Esophageal obstruction (principal)
CPT/HCPCS: 91010

== ENCOUNTER → 2024-10-22 | Outpatient (CLI) | payer MEDICARE, SELFPAY | END | disposition home or self-care (01) | PROVIDERS: PCP Family Medicine; Referring Provider Nurse Practitioner Acute Care; Visit Provider Nurse Practitioner Acute Care | DX: M34.9 Systemic sclerosis, unspecified (principal) | CPT/HCPCS: 94060; 94726; 94729 ==

== ENCOUNTER → 2024-11-22 | Outpatient (CLI) | payer MEDICARE, SELFPAY ==
[2024-11-22 13:28] VITALS: PULSE 72; PULSE 73; PULSE 74; PULSE 76; PULSE 77; PULSE 79; O2SAT 95; O2SAT 96; O2SAT 97; O2SAT 98
--- NOTE | 2024-11-26 13:13 | PCM.PSN.6M ---
PSN 6 Minute Walk Test 6 Minute Walk Test 6 Minute Walk Test: 6 Minute Walk Test PSN:6-Minute Walk Test Start: 11/22/24 13:21 Freq: Status: Active Protocol: RESP.6MINW Document 11/22/24 13:28 [facility] (Rec: 11/22/24 13:33 [facility] [id number]) 6 Minute Walk Test Date Performed 11/22/24 Time Performed 12:30 Height 5 ft 6 in Weight: 124 lb Weight in Pounds 124.[address]: Melissa Cr [employer] Assistive device Cane used: Pre-test Oxygen Delivery Room Air Method Pulse Ox (%) 96 Pulse Rate (60-100 72 beats/min) Dyspnea Russel Scale ( 0 0-10) 1st minute Oxygen Delivery Room Air Method Pulse Ox (%) 98 Pulse Rate (60-100 76 beats/min) Dyspnea Russel Scale ( 0 0-10) Number of Rests 0 Taken 2nd minute Oxygen Delivery Room Air Method Pulse Ox (%) 96 Pulse Rate (60-100 77 beats/min) Dyspnea Russel Scale ( 0 0-10) Number of Rests 0 Taken 3rd minute Oxygen Delivery Room Air Method Pulse Ox (%) 95 Pulse Rate (60-100 79 beats/min) Dyspnea Russel Scale ( 0 0-10) Number of Rests 0 Taken 4th minute Oxygen Delivery Room Air Method Pulse Ox (%) 96 Pulse Rate (60-100 77 beats/min) Dyspnea Russel Scale ( 0 0-10) Number of Rests 0 Taken 5th minute Oxygen Delivery Room Air Method Pulse Ox (%) 96 Pulse Rate (60-100 73 beats/min) Dyspnea Russel Scale ( 0 0-10) Number of Rests 0 Taken 6th minute Oxygen Delivery Room Air Method Pulse Ox (%) 96 Pulse Rate (60-100 74 beats/min) Dyspnea Russel Scale ( 0 0-10) Number of Rests 0 Taken Post-test Oxygen Delivery Room Air Method Pulse Ox (%) 97 Pulse Rate (60-100 74 beats/min) Dyspnea Russel Scale ( 0 0-10) Exertion Russel Scale 6 (6-20) Full Laps Walked 11 Partial Lap, Number 11 of Tiles Walked Total Distance 660 Walked (ft) Interpretation Interpretation: The patient ambulated 660 feet over the course of 6 minutes beginning on room air with use of a cane. Pretesting oxygen saturation was noted to be 96% on room air. With ambulation, the brunilda oxygen saturation was 95%. Although there was evidence of impaired walk distance, there was no significant exertional oxygen desaturation. Recommendations Recommendations: There is no indication for the use of supplemental oxygen at this time.
== END | disposition home or self-care (01) ==
LOC: PSN 12:29
PROVIDERS: PCP Family Medicine; Referring Provider Nurse Practitioner Acute Care; Visit Provider Nurse Practitioner Acute Care
DX: I27.20 Pulmonary hypertension, unspecified (principal)
CPT/HCPCS: 94618

== ENCOUNTER → 2025-01-01 | Outpatient (CLI) | payer MEDICARE, SELFPAY | END | disposition home or self-care (01) | LOC: SL 11:29 | PROVIDERS: PCP Family Medicine; Referring Provider Nurse Practitioner Acute Care; Visit Provider Nurse Practitioner Acute Care | DX: R09.02 Hypoxemia (principal) | CPT/HCPCS: 94762 ==

== ENCOUNTER → 2025-01-07 | Outpatient (CLI) | payer MEDICARE, SELFPAY ==
--- NOTE | 2025-01-07 13:57 | CT_ITS ---
PROCEDURE: ABDOMEN/PELVIS WITH CONTRAST 01/07/2025 REASON FOR EXAM: ABD PAIN TECHNIQUE: ABDOMEN/PELVIS WITH CONTRAST Coronal and Sagittal reconstruction series were provided. CONTRAST: Isovue 300 VOLUME: 90 mL One or more dose reduction techniques were used (e.g., Automated exposure control, adjustment of the mA and/or kV according to patient size, use of iterative reconstruction technique. RADIATION DOSE SUMMARY: CTDlvol: 26 mGy DLP: 563 mGycm COMPARISON: No FINDINGS: Minimal basilar atelectasis. Normal heart size. Liver cyst. Status post cholecystectomy. Mildly dilated pancreatic duct, 5 mm cross-section, without obstructing lesion noted. Unremarkable spleen, adrenal glands, kidneys. No hydronephrosis or ureteral stone. Normal bladder. Status post hysterectomy. No retroperitoneal or pelvic adenopathy. No free air. Nonobstructed bowel. Diverticulosis. No signs of appendicitis. No acute large bowel findings. Lumbar spine scoliosis and degeneration. CT/Abdomen/Pelvis WITH Contrast IMPRESSION: No acute findings. Reading Location: [place] [id number]
== END | disposition home or self-care (01) ==
LOC: CT 13:57
PROVIDERS: PCP Family Medicine; Referring Provider Internal Medicine Gastroenterology; Visit Provider Internal Medicine Gastroenterology
DX: R10.9 Unspecified abdominal pain (principal)
CPT/HCPCS: 74177; Q9967

== ENCOUNTER → 2025-01-28 | Outpatient (CLI) | payer MEDICARE, SELFPAY ==
--- NOTE | 2025-01-28 11:47 | RAD_ITS ---
PROCEDURE: TOE(S) MIN 2 VIEWS 01/28/2025 REASON FOR EXAM: PAIN/SWELLING, LEFT GREAT TOE TECHNIQUE: TOE(S) MIN 2 VIEWS COMPARISON: None. FINDINGS: Healing fracture in the base of the distal phalanx of the big toe. Soft tissue edema and swelling. Mild osteopenia. Mild degenerative joint disease. RAD/Toe(s) Min 2 Views IMPRESSION: Healing fracture in the base of the distal phalanx of the big toe. Soft tissue edema and swelling. Mild degenerative joint disease. Reading [facility]
== END | disposition home or self-care (01) ==
LOC: MTRAD 11:46
PROVIDERS: PCP Family Medicine; Referring Provider Family Medicine; Visit Provider Family Medicine
DX: M79.675 Pain in left toe(s) (principal)
CPT/HCPCS: 73660

== ENCOUNTER → 2025-02-11 | Outpatient (CLI) | payer MEDICARE, SELFPAY ==
--- NOTE | 2025-02-11 12:57 | ECHOD_ITS ---
Reason For Study Reason For Study: SOB, Scleroderma Procedure This was a 2D Doppler, Color Flow transthoracic echocardiogram. Myocardial strain analysis was performed in this exam to aid in the assessment of cardiac function. Exam performed in department. Left Ventricle Normal LV size. The left ventricular ejection fraction is 60 %. Stage 1 diastolic dysfunction. No regional wall motion abnormalities noted. Right Ventricle Normal RV size. Normal systolic function. Atria Normal left atrium. Normal right atrium. Mitral Valve Normal mitral valve. Tricuspid Valve Normal tricuspid valve. Mild tricuspid valve insufficiency. Pulmonary artery systolic pressure is 26 mmHg. Aortic Valve Trisinus/trileaflet aortic valve. Mild (1+) eccentric aortic valve insufficiency. Pulmonic Valve Normal pulmonic valve. Great Vessels Normal aortic root. The pulmonary artery is normal size. Inferior vena cava collapse with respiration. Pericardium/Pleural No pericardial effusion. MMode/2D Measurements & Calculations LVIDd: 3.5 cm IVSd: 0.94 cm LAV(MOD- bp): 23.7 ml LVIDs: 2.2 cm LVPWd: 1.1 cm LAV(MOD- bp) Indexed: 13.7 ml/m2 RVDd: 3.6 cm FS: 37.9 % LAV(MOD- sp2): 19.1 ml LAV(MOD- sp4): 20.2 ml SV(MOD-sp4): 23.9 ml SV(sp4- el): 25.5 ml LVAd ap4: 16.0 cm2 LVLd ap4: 5.5 cm SI(MOD-sp4): 13.8 ml/m2 EDV(MOD-sp4): 37.8 ml EDV(sp4-el): 39.4 ml LVAs ap4: 8.5 cm2 LVLs ap4: 4.4 cm ESV(MOD-sp4): 13.9 ml ESV(sp4-el): 13.9 ml EF(MOD-sp4): 63.2 % EF(sp4-el): 64.7 % LA A4 area: 8.7 cm2 LA dimension(2D): 2.8 cm RA A4 area: 8.4 cm2 TAPSE: 1.2 cm Time Measurements MV dec time: 0.20 sec Doppler Measurements & Calculations MV E max aquilino: 55.9 cm/sec Lat Peak E' Aquilino: 6.0 cm/sec Med Peak E' Aquilino: 6.1 cm/sec MV A max aquilino: 79.5 cm/sec E/E' lat: 9.3 E/E' med: 9.1 MV E/A: 0.70 MV V2 max: 104.6 cm/sec MV P1/2t max aquilino: 67.9 cm/sec Ao V2 max: 115.9 cm/sec MV max P.4 mmHg MV P1/2t: 74.2 msec Ao max P.4 mmHg MV V2 mean: 46.2 cm/sec Ao V2 mean: 86.8 cm/sec MV mean P.1 mmHg MV dec slope: 268.2 cm/sec2 Ao mean P.3 mmHg MV V2 VTI: 22.0 cm MVA(P1/2t): 3.0 cm2 Ao V2 VTI: 24.4 cm AV (velocity ratio): 0.93 AI max aquilino: 316.0 cm/sec LV V1 max: 99.6 cm/sec PA V2 max: 82.6 cm/sec AI max P.9 mmHg LV V1 max P.0 mmHg LV V1 mean P.2 mmHg AI dec slope: 143.2 cm/sec2 LV V1 mean: 70.4 cm/sec AI P1/2t: 646.4 msec LV V1 VTI: 22.8 cm TR max aquilino: 242.5 cm/sec TR max P.5 mmHg ECHO/Echo Complete Interpretation Summary Normal LV size. The left ventricular ejection fraction is 60 %. Stage 1 diastolic dysfunction. Mild (1+) eccentric aortic valve insufficiency. Pulmonary artery systolic pressure is 26 mmHg. The global longitudinal strain = -17.3 % (normal). Ordering Physician: SAMANTHA CHENG Referring Physician: SAMANTHA CHENG Performed By: Luis Rivera RCS
== END | disposition home or self-care (01) ==
LOC: CVS 12:56
PROVIDERS: PCP Family Medicine
DX: R06.02 Shortness of breath (principal); M34.9 Systemic sclerosis, unspecified
CPT/HCPCS: 93306

== ENCOUNTER → 2025-05-31 | Outpatient (CLI) | payer MEDICARE, SELFPAY ==
--- NOTE | 2025-05-31 11:35 | RAD_ITS ---
EXAM: XR Chest, 1 View CLINICAL INDICATION: COUGH TECHNIQUE: Frontal view of the chest. COMPARISON: No relevant prior studies available. FINDINGS: LUNGS AND PLEURAL SPACES: Hyperlucent lungs. Flattening of the diaphragm. No consolidation. No pneumothorax. HEART: Unremarkable. No cardiomegaly. MEDIASTINUM: Unremarkable. Normal mediastinal contour. BONES/JOINTS: Unremarkable. No acute fracture. RAD/Chest PA and Lateral IMPRESSION: Suggestion of COPD. Reading Location: [id number]
== END | disposition home or self-care (01) ==
LOC: RAD 11:30
PROVIDERS: PCP Family Medicine; Referring Provider Nurse Practitioner Family; Visit Provider Nurse Practitioner Family
DX: R05.9 Cough, unspecified (principal)
CPT/HCPCS: 71046